=== PATIENT | female | born 1995 | race Caucasian/White ===

== ENCOUNTER 2016-11-20 18:16 | Observation (INO) | payer OTHER ==
[~2016-11-20] VITALS: Ht 154.9 cm; Wt 66.0 kg
[2016-11-20 18:17] VITALS: Ht 154.9 cm; Wt 66.0 kg
[2016-11-20] MEDS ORDERED: SODIUM CHLORIDE 0.9% 1000ML 1,000 ML IV STA (18:22)
[2016-11-20 18:40] LABS: HEMATOCRIT 40.2 % (37-47); MEAN CELL VOLUME 90.7 fL (80-100); MEAN CORPUSCULAR HEMOGLOBIN 32.1 pg (25-34); RED BLOOD COUNT 4.43 M/uL (4.2-5.4); WHITE BLOOD COUNT 9.34 K/uL (4.8-10.8)
[2016-11-20 18:41] LABS: BASO % 0.3 %; BASO ABS # 0.03 K/uL (0-0.2); COMPLETE YES; IG% 0.1 %; LYMPH % 38.1 %; LYMPH ABS # 3.56 K/uL (1.2-3.4); MEAN CORPUSCULAR HGB CONC 35.3 g/dl (32-36); MEAN PLATELET VOLUME 10.7 fL (7.4-10.4); MONO % 7.7 %; NEUT % 52.8 %; PLATELET COUNT 220 K/uL (130-400)
[2016-11-20 18:45] LABS: URINE APPEARANCE CLEAR (CLEAR); URINE BILIRUBIN NEG (NEG); URINE COLOR YELLOW; URINE NITRITE NEG (NEG); URINE PH 6.5 (4.5-7.5); URINE SPECIFIC GRAVITY 1.027 (1.000-1.030); UROBILINOGEN NEG (NEG); ZZUR CULT IF INDIC CLEAN CATCH NO
[2016-11-20 18:55] LABS: MANUAL MICROSCOPIC REQUIRED? NO; REVIEW REQ? NO
[2016-11-20 18:57] LABS: BUN/CREATININE RATIO 12.2 (10-20); CALCIUM 9.4 mg/dl (8.5-10.1); CREATININE 0.98 mg/dl (0.60-1.20); POTASSIUM 3.6 mmol/L (3.5-5.1)
[2016-11-20] MEDS ORDERED: CEFOXITIN SOD 2 GM VIAL IV STA (18:57)
--- NOTE | 2016-11-20 19:08 | History and Physical ---
History & Physical Date & Time of Service: November 20, 2016 at 19:05 Chief Complaint: Acute Appndicitis Primary Care Physician: No Doctor, Assigned History of Present Illness Source: patient, family 24 hrs of persistent abd pain- localized to RLQ- CT ordered by LMD- showed acute appendicitis pt is a student- otherwise healthy afeb, wbc- 9.3 Family History Patient reports no known family medical history. Social History Smoking Status: Never Smoker Drug Use: none Marital Status: single Occupational Status: student Allergies Coded Allergies: No Known Allergies (Unverified , 11/20/16) Home Medications No Active Prescriptions or Reported Meds Review of Systems Constitutional: No chills, No fever Respiratory: No cough, No shortness of breath Cardiovascular: No chest pain Abdomen: + pain, No diarrhea, No vomiting Genitourinary - Female: No dysuria Neurologic: No weakness Endocrine: No fatigue Integumentary: No rash Physical Exam Vital Signs Date Time Temp Pulse Resp B/P Pulse Ox O2 Delivery O2 Flow Rate FiO2 11/20/16 18:17 36.8 74 20 134/76 98 Room Air General Appearance: WD/WN, no apparent distress Eyes: sclerae normal Neck: supple Respiratory/Chest: no respiratory distress Cardiovascular: regular rate, rhythm Abdomen/GI: soft, + tenderness (RLQ tender) Extremities/Musculoskelatal: no pedal edema Skin: no rash Diagnostics Laboratory Results Results Past 24 Hours Test 11/20/16 18:25 11/20/16 18:30 Range/Units Urine Color YELLOW Urine Appearance CLEAR CLEAR Urine pH 6.5 4.5-7.5 Urine Specific Ora 1.027 1.000-1.030 Urine Protein NEG NEG Urine Glucose (UA) NEG NEG Urine Ketones 2+ NEG Urine Occult Blood NEG NEG Urine Nitrite NEG NEG Urine Bilirubin NEG NEG Urine Urobilinogen NEG NEG Urine Leukocyte Esterase NEG NEG Urine Test NEG NEG White Blood Count 9.34 4.8-10.8 K/uL Red Blood Count 4.43 4.2-5.4 M/uL Hemoglobin 14.2 12.0-16.0 g/dL Hematocrit 40.2 37-47 % Mean Corpuscular Volume 90.7 80-100 fL Mean Corpuscular Hemoglobin 32.1 25-34 pg Mean Corpuscular Hemoglobin Concent 35.3 32-36 g/dl Platelet Count 220 130-400 K/uL Mean Platelet Volume 10.7 7.4-10.4 fL Neutrophils (%) (Auto) 52.8 % Lymphocytes (%) (Auto) 38.1 % Monocytes (%) (Auto) 7.7 % Eosinophils (%) (Auto) 1.0 % Basophils (%) (Auto) 0.3 % Neutrophils # (Auto) 4.93 1.4-6.5 K/uL Lymphocytes # (Auto) 3.56 1.2-3.4 K/uL Monocytes # (Auto) 0.72 0.11-0.59 K/uL Eosinophils # (Auto) 0.09 0-0.5 K/uL Basophils # (Auto) 0.03 0-0.2 K/uL RDW Standard Deviation 38.3 36.4-46.3 fL RDW Coefficient of Variation 11.6 11.5-14.5 % Immature Granulocyte % (Auto) 0.1 % Immature Granulocyte # (Auto) 0.01 0.00-0.02 K/uL Sodium Level 141 136-145 mmol/L Potassium Level 3.6 3.5-5.1 mmol/L Chloride Level 105 98-107 mmol/L Carbon Dioxide Level 32 21-32 mmol/L Anion Gap 4.0 3-11 mmol/L Blood Urea Nitrogen 12 7-18 mg/dl Creatinine 0.98 0.60-1.20 mg/dl Est Creatinine Clear Calc Drug Dose 79.6 ml/min Estimated GFR () 96.2 Estimated GFR (Non- 83.0 BUN/Creatinine Ratio 12.2 10-20 Random Glucose 105 70-99 mg/dl Calcium Level 9.4 8.5-10.1 mg/dl Total Bilirubin 0.8 0.2-1 mg/dl Direct Bilirubin 0.2 0-0.2 mg/dl Aspartate Amino Transf (AST/SGOT) 10 15-37 U/L Alanine Aminotransferase (ALT/SGPT) 22 12-78 U/L Alkaline Phosphatase 62 45-117 U/L Total Protein 8.4 6.4-8.2 gm/dl Albumin 4.7 3.4-5.0 gm/dl Lipase 329 73-393 U/L Impression Assessment and Plan acute appendicitis- for laparoscopic appendectomy, possible open operation IV atbx
[2016-11-20] MEDS ORDERED: CEFOXITIN IV 2,000 MG in DEXTROSE 5% 50ML 50 ML IV ONE (19:15)
[2016-11-20] MEDS ORDERED: METOPROLOL TARTRATE 1 MG/ML VIAL ONE (19:27)
[2016-11-20] MEDS ORDERED: PROPOFOL IV EMULSION 10 MG/ML 20 ML VIAL IV ONE (19:28)
[2016-11-20] MEDS ORDERED: LIDOCAINE HCL 2% 2 ML VIAL (20MG/ML) ONE (19:28)
[2016-11-20] MEDS ORDERED: MIDAZOLAM HCL 1 MG/ML 2ML VIAL ONE ×2 (19:28→19:56)
[2016-11-20] MEDS ORDERED: FENTANYL CITRATE INJ 50 MCG/1 ML 2 ML VIAL ONE ×2 (19:28→20:28)
[2016-11-20] MEDS ORDERED: ONDANSETRON INJ 2 MG/ML 2 ML VIAL ONE (19:29)
[2016-11-20] MEDS ORDERED: NEOSTIGMINE METHYLSULFATE 5 MG/5 ML SYR ONE (19:29)
[2016-11-20] MEDS ORDERED: ROCURONIUM BROMIDE 10 MG/ML 5 ML VIAL ONE (19:29)
[2016-11-20] MEDS ORDERED: GLYCOPYRROLATE INJ 0.2 MG/ML VIAL ONE (19:29)
[2016-11-20] MEDS ORDERED: DEXAMETHASONE SOD INJ 4 MG/ML VIAL ONE (19:29)
[2016-11-20] MEDS ORDERED: ONDANSETRON INJ 2 MG/ML 2 ML VIAL IV PRN ×2 (19:30→20:45)
[2016-11-20] MEDS ORDERED: NALOXONE HCL 0.4 MG/1 ML VIAL/CARP IV PRN (19:30)
[2016-11-20] MEDS ORDERED: HYDROmorphone INJ 2 MG/ML SYR/VIAL IV PRN (19:30)
[2016-11-20] MEDS ORDERED: ATROPINE SULFATE 0.1 MG/ML 5ML SYR IV PRN (19:30)
[2016-11-20] MEDS ORDERED: FENTANYL CITRATE INJ 50 MCG/1 ML 2 ML VIAL IV PRN (19:30)
[2016-11-20] MEDS ORDERED: PHENYLEPHRINE 100MCG/ML 5ML SYR IV PRN (19:30)
[2016-11-20] MEDS ORDERED: LABETALOL HCL IV 5 MG/ML 20ML IV PRN (19:30)
[2016-11-20] MEDS ORDERED: FLUMAZENIL 0.1 MG/1 ML 10 ML VIAL IV PRN (19:30)
[2016-11-20] MEDS ORDERED: EpHEDrine SULFATE INJ 50 MG/ML AMP IV PRN (19:30)
[2016-11-20] MEDS ORDERED: SUCCINYLCHOLINE 100MG/5ML SYR IV ONE (19:37)
[2016-11-20] MEDS ORDERED: BUPIVACAINE 0.5 % 5 MG/1 ML MPF 30ML VIAL ONE (19:39)
[2016-11-20] MEDS ORDERED: PHENYLEPHRINE 100MCG/ML 5ML SYR ONE (20:14)
[2016-11-20] MEDS ORDERED: ESMOLOL HCL 10 MG/ML 10 ML VIAL ONE (20:36)
[2016-11-20] MEDS ORDERED: LACTATED RINGER'S 1000ML 1,000 ML IV SCH (20:41)
--- NOTE | 2016-11-20 20:41 | [facility] Post Operative Brief Note ---
Immediate Operative Summary Operative Date November 20, 2016. Pre-Operative Diagnosis Acute Appendicitis Post-Operative Diagnosis Acute Appendicitis Procedure(s) Performed Laparoscopic Appendectomy Surgeon Dr. Easley Automatic Glove Former Surgeon(s) nurses Estimated Blood Loss 5ML Findings retrocecal appendix with adhesions Specimens A. Appendix Anesthesia gen Complication(s) None Disposition Recovery Room / PACU
[2016-11-20] MEDS ORDERED: HYDROCODONE/ACETAMOPHEN 5/325MG TAB PO PRN ×2 (20:45)
[2016-11-20] MEDS ORDERED: PROMETHAZINE HCL INJ 25 MG in SODIUM CHLORIDE 0.9% 50ML 50 ML IV PRN (20:45)
[2016-11-20] MEDS ORDERED: MoRPHine SULFATE 2 MG/ML CARP IV PRN (20:45)
[2016-11-20] MEDS ORDERED: MoRPHine SULFATE 4 MG/ML 1 ML CARP\\VIAL IV PRN (20:45)
[2016-11-20] MEDS ORDERED: KETOROLAC TROMETHAMINE 30 MG/ML VIAL IV STA (20:52)
[2016-11-20] MEDS ORDERED: KETOROLAC TROMETHAMINE 30 MG/ML VIAL ONE (20:53)
[2016-11-20] MEDS: MEPERIDINE HCL 25 MG/ML CARP IV PRN ×2 (20:58→21:12)
--- NOTE | 2016-11-20 21:11 | Anesthesiology Progress Note ---
Anesthesia Post Op Note Date & Time November 20, 2016 at 21:11 Vital Signs Pain Intensity: 4 Vital Signs Past 12 Hours Date Time Temp Pulse Resp B/P Pulse Ox O2 Delivery O2 Flow Rate FiO2 11/20/16 21:05 60 12 112/69 100 Mask 10 11/20/16 20:55 80 17 109/75 100 Mask 10 11/20/16 20:49 36.0 77 16 105/63 100 Mask 10 11/20/16 19:16 70 16 126/60 99 Room Air 11/20/16 19:04 74 11/20/16 18:17 36.8 74 20 134/76 98 Room Air Notes Mental Status: alert / awake / arousable, participated in evaluation Pt Amnestic to Procedure: Yes Nausea / Vomiting: adequately controlled Pain: adequately controlled Airway Patency, RR, SpO2: stable & adequate BP & HR: stable & adequate Hydration State: stable & adequate Anesthetic Complications: no major complications apparent
[2016-11-20] MEDS ORDERED: IV FLUIDS COMPLETED PRN (21:15)
[2016-11-20] MEDS ORDERED: PROMETHAZINE HCL INJ 12.5 MG in SODIUM CHLORIDE 0.9% 50ML 50 ML IV PRN (21:15)
[2016-11-20 21:45] VITALS: BP 114/73; PULSE 69; TEMP 36.9; O2SAT 100
--- NOTE | 2016-11-20 22:05 | OPERATIVE REPORT ---
DATE OF OPERATION: 11/20/2016 NAME OF OPERATION: Laparoscopic appendectomy. PREOPERATIVE DIAGNOSIS: Acute appendicitis. POSTOPERATIVE DIAGNOSIS: Same. STAFF SURGEON: Dr. Easley. ANESTHESIA: General. PROCEDURE IN DETAIL: The patient was brought in the operating room and placed on the operating table in supine position. Pneumatic stockings, Castano catheter, orogastric tube were placed. Her abdomen was prepped and draped in usual fashion. Using 0.5% plain Marcaine, all incisions were anesthetized. Incision was made just below the umbilicus, carrying dissection down to the fascia, placing a Veress needle, producing pneumoperitoneum. A 5 mm port was placed at this level and then a 5 mm camera passed. Under visualization, a second 5 mm port was placed in the suprapubic area, a 12 mm port placed in the left lower quadrant. The cecum was reflected. The appendix was retrocecal, it was adherent to the retroperitoneum. The base of the appendix was transected using an Endo-TREVIN stapler. Then, the mesentery transected using the Endo-TREVIN stapler. I did have to dissect the appendix from the retroperitoneal adhesions using both sharp and blunt dissection. The appendix was then placed in an Endobag and then removed through the 12 mm port. At this point, the site was irrigated with hemostasis maintained. All ports were then removed. The 12 mm site closed using 0 Vicryl for the fascia and then the skin was reapproximated using subcuticular 4-0 Monocryl, Dermabond at the umbilicus and suprapubic area and Steri-Strips in left lower quadrant. Dressing applied and the patient transferred to recovery room in stable condition. I attest to the content of the Intraoperative Record and any orders documented therein. Any exceptio ns are noted below.
[2016-11-20 22:23] VITALS: BP 98/57; PULSE 73; TEMP 36.9; O2SAT 100
[2016-11-20 22:47] VITALS: BP 104/62; PULSE 83; TEMP 37; O2SAT 97
[2016-11-20 23:45] VITALS: BP 98/59; PULSE 73; TEMP 37.2; O2SAT 96
--- NOTE | 2016-11-21 00:36 | EMERGENCY ROOM VISIT NOTE ---
History Report prepared by Jodee: Kaylan Florian Under the Supervision of: Dr. Mannie Jay M.D. First contact with patient: 18:22 Chief Complaint: ABDOMINAL PAIN Stated Complaint: ACUTE APPNDICITIS History of Present Illness The patient is a 21 year old female who presents to the Emergency Room with complaints of constant abdominal pain starting yesterday. The patient states that she had stomach pains yesterday and went to a PA in [place]. She reports that they ordered an outpatient CT and was found to have appendicitis. She states that she was nauseous yesterday and today, but denies any vomiting. The patient reports that her pain is a 4/10 in severity. She notes she last had water three hours ago and no food since yesterday. She also states that she has blood in her urine. Pt denies LOC, headache, fevers, chills, diaphoresis, visual changes, neck pain, chest pain, breathing difficulties, vomiting, back pain, melena, hematochezia, numbness, weakness, lymphadenopathy, rash, or other complaints. Source of History: patient Onset: yesterday Position: abdomen Symptom Intensity: 4/10 Timing: constant Associated Symptoms: + nausea Review of Systems See HPI for pertinent positives and negatives. A total of ten systems were reviewed and were otherwise negative. Family History Patient reports no known family medical history. Social History Smoking Status: Never Smoker Alcohol Use: occasionally Drug Use: none Marital Status: single Occupation Status: student Current/Historical Medications No Active Prescriptions or Reported Meds Allergies Coded Allergies: No Known Allergies (Unverified , 11/20/16) Physical Exam Vital Signs Date Time Temp Pulse Resp B/P Pulse Ox O2 Delivery O2 Flow Rate FiO2 11/20/16 18:17 36.8 74 20 134/76 98 Room Air Physical Exam GENERAL: Awake, alert, well-appearing, in no distress HENT: Normocephalic, atraumatic. Oropharynx unremarkable. EYES: Normal conjunctiva. Sclera non-icteric. NECK: Supple. No nuchal rigidity. FROM. No JVD. RESPIRATORY: Clear to auscultation. CARDIAC: Regular rate, normal rhythm. Extremities warm and well perfused. Pulses equal. ABDOMEN: Soft, non-distended. RLQ tenderness to palpation. No rebound. Some guarding. No masses. RECTAL: Deferred. MUSCULOSKELETAL: Chest examination reveals no tenderness. The back is symmetrical on inspection without obvious abnormality. There is right CVA tenderness to palpation. No joint edema. LOWER EXTREMITIES: Calves are equal size bilaterally and non-tender. No edema. No discoloration. NEURO: Normal sensorium. No sensory or motor deficits noted. SKIN: No rash or jaundice noted. Medical Decision & Procedures Laboratory Results Laboratory results reviewed by me ED Course 182: Ordered NSS 1000 ml @ 999 mls/hr IV. 1842: The patient was evaluated in room C10. A complete history and physical exam was performed. 1848: I discussed the patient's case with Dr. Easley. The patient will be evaluated for further treatment and disposition. Medical Decision Review Triage Nursing notes reviewed. The patient's presentation and history were concerning for right-sided abdominal pain and a CT showing a retrocecal appendicitis. Etiologies such as appendicitis, diverticulitis, obstruction, inflammatory bowel disease, renal colic, PUD, biliary pathology, pancreatitis, mesenteric ischemia, aortic pathology, , ovarian pathology, infections, genitourinary, UTI, perforated viscus, as well as others were entertained. The patient was evaluated. Clinically she was doing relatively well. She declined analgesia. She was hydrated. The patient was NPO. Her CBC, chemistry panel, LFTs, lipase, and urinalysis were unremarkable. The patient is not . CT scan results were reviewed from her outpatient study and she has a retrocecal appendicitis. Consultation was made with Dr. Easley of general surgery. He recommended Mefoxin and will see the patient promptly for operative intervention. The patient was evaluated in the Emergency Room the operative suite for further management. The chart was completed utilizing [employer] Speech voice recognition software. Grammatical errors, random word insertions, pronoun errors, and incomplete sentences are an occasional consequence of this system due to software limitations, ambient noise, and hardware issues. Any formal questions or concerns about the content, text, or information contained within the body of this dictation should be directly addressed to the physician for clarification. Consults Time Called: 1845 Consulting Physician: Dr. Easley Returned Call: 1848 I discussed the patient's case with Dr. Easley. The patient will be evaluated for further treatment and disposition. Impression Primary Impression: Acute appendicitis Scribe Attestation The scribe's documentation has been prepared under my direction and personally reviewed by me in its entirety. I confirm that the note above accurately reflects all work, treatment, procedures, and medical decision making performed by me. Departure Information Dispostion Being Evaluated By Surgeon Prescriptions No Active Prescriptions or Reported Meds Referrals No Doctor, Assigned (PCP) Patient Instructions My [facility]
[2016-11-21 00:45] VITALS: BP 95/57; PULSE 85; TEMP 37.1; O2SAT 96
[2016-11-21] MEDS ORDERED: CEFOXITIN IV 1,000 MG in DEXTROSE 5% 50ML 50 ML IV SCH (04:00)
[2016-11-21 04:24] VITALS: BP 97/53; PULSE 53; TEMP 37.2; O2SAT 99
[2016-11-21] MEDS ORDERED: HYDR-5688 PO (05:27)
--- NOTE | 2016-11-21 05:31 | Discharge Instructions ---
Discharge Instructions Date of Service November 21, 2016. Admission Reason for Admission: Acute Appendicitis Discharge Discharge Diagnosis / Problem: acute appendicitis Discharge Goals Goal(s): Decrease discomfort, Improve function, Improve disease control Activity Recommendations Activity Limitations: as noted below Lifting Limitations: no more than 25 pounds Exercise/Sports Limitations: until after follow-up appointment May Resume Sexual Activity: when tolerated Shower/Bathe: tomorrow SPECIAL CARE INSTRUCTIONS: * Cover incisions and change daily for comfort/drainage. May leave uncovered with dermabond * Leave steri strips in place * May use ibuprofen for pain as tolerated. * Expect some swelling and bruising. Call your doctor if: * Temperature above 101 degrees * Pain not relieved by pain medicine ordered * There is increased drainage or redness from any incision * You have any unanswered questions or concerns [phone]. FOLLOW UP VISIT: If not already scheduled, please call the office for a follow-up visit. for 2 weeks- no sutures to remove OFFICE PHONE NUMBER: Dr. Easley Office . Current Hospital Diet Patient's current hospital diet: Regular Diet Discharge Diet Recommended Diet: Regular Diet Procedures Procedures Performed: Laparoscopic Appendectomy Pending Studies Studies pending at discharge: no Medical Emergencies . Who to Call and When: Medical Emergencies: If at any time you feel your situation is an emergency, please call 911 immediately. . Non-Emergent Contact Non-Emergency issues call your: Primary Care Provider, Surgeon . "Provider Documentation" section prepared by Vishal Easley. . VTE Core Measure Inpt VTE Proph given/why not?: SCD's
--- NOTE | 2016-11-21 07:19 | DISCHARGE SUMMARY ---
PRINCIPAL DIAGNOSIS: Acute appendicitis. PROCEDURES: The patient underwent laparoscopic appendectomy. HISTORY OF PRESENT ILLNESS: The patient is a 21-year-old female with persistent abdominal pain localizing to the right lower quadrant presenting to the Emergency Room and found on workup to have appendicitis on evidence of CAT scan. HOSPITAL COURSE: The patient was brought into the hospital and taken to the operating room on 11/20/2016 where she underwent laparoscopic appendectomy. She has done very well overnight and wishes to go home today. She will be discharged on oral pain medication and seen in the office in 2 weeks.
[2016-11-21 07:25] VITALS: BP 104/58; PULSE 66; TEMP 36.6; O2SAT 97
[2016-11-21 08:03] VITALS: O2SAT 97
[2016-11-21 08:12] VITALS: BP 104/58; PULSE 66; TEMP 36.6; O2SAT 97
== END 2016-11-21 08:57 | disposition home or self-care (01) ==
LOC: ENRESERVDT → ENRESERVTM → C.EDB 18:17 → C.MSW 20:45 → UNDOADMOB 20:45
PROVIDERS: ADMIT Surgery; ATTEND Surgery
DX: K35.80 Unspecified acute appendicitis (principal); Z68.28 Body mass index [BMI] 28.0-28.9, adult

== ENCOUNTER → 2016-11-20 | Outpatient (CLI) | payer OTHER ==
[~2016-11-20] MED LIST: HYDR-5688 PO
--- NOTE | 2016-11-20 17:38 | DIAGNOSTIC IMAGING REPORT ---
CT OF THE ABDOMEN AND PELVIS WITHOUT CONTRAST, STONE PROTOCOL CLINICAL HISTORY: Right lower quadrant pain. Evaluate for stones. COMPARISON STUDY: None. TECHNIQUE: Helical axial images of the abdomen and pelvis were obtained without IV or oral contrast according to renal stone protocol. FINDINGS: Several punctate right renal calculi measure up to 2 mm. A punctate calculus within the lower pole of the left kidney is noted. There is no hydronephrosis. There are no ureteral calculi. Evaluation of the remainder of the abdomen and pelvis is suboptimal as unenhanced exam. The liver, spleen, adrenal glands and pancreas are normal. The appendix is mildly dilated, measuring 8 mm in caliber. There is wall thickening of the mid to distal appendix with mild periappendiceal infiltration. The appendix is retrocecal. There is no free air or abscess. There is no lymphadenopathy. There is no bowel obstruction. Skeletal structures are unremarkable. IMPRESSION: 1. Acute appendicitis. Mild periappendiceal infiltration. No free air or abscess. Retrocecal appendix. Surgical consultation is recommended. 2. Punctate bilateral renal calculi. No ureteral calculi or hydronephrosis. Electronically signed by: Tamir Louis M.D. 11/20/2016 5:37 PM Dictated Date/Time: 11/20/2016 5:30 PM
== END | disposition home or self-care (01) ==
LOC: C.CTS 17:15
PROVIDERS: ATTEND Physician Assistant
DX: K35.80 Unspecified acute appendicitis (principal); N20.0 Calculus of kidney

== ENCOUNTER → 2017-08-14 | Day surgery (SDC) | payer OTHER ==
[2017-08-09 09:10] VITALS: Ht 154.9 cm; Wt 65.9 kg
[~2017-08-14] VITALS: Ht 154.9 cm; Wt 65.9 kg
[~2017-08-14] MED LIST changes: -HYDR-5688 PO; +LIDOCAINE HCL 2% 2 ML VIAL (20MG/ML) ONE; +MIDAZOLAM HCL 1 MG/ML 2ML VIAL ONE; +PROPOFOL IV EMULSION 10 MG/ML 20 ML VIAL IV ONE; +RANI150T3 PO; +SODIUM CHLORIDE 0.9% 500ML 500 ML IV ONE
--- NOTE | 2017-08-14 13:52 | Endo History and Physical ---
History & Physical Date of Service: Aug 14, 2017. Chief Complaint: Epigastric pain Referring Physician: MIKE Helton History of Present Illness 22 yo CF who presents for EGD secondary to epigastric abdominal pain. Past Surgical History Hx Cardiac Surgery: No Hx Internal Defibrillator: No Hx Pacemaker: No Hx Abdominal Surgery: Yes (APPY) Hx of Implantable Prosthesis: No Hx Post-Op Nausea and Vomiting: No Hx Cancer Surgery: No Hx Thoracic Surgery: No Hx Orthopedic: No Hx Urinary Tract Surgery: No Family History None Social History Smoking Status: Never Smoker Hx Substance Use: No Hx Alcohol Use: Yes (OCCASIONALLY) Allergies Coded Allergies: No Known Allergies (Verified , 08/14/17) Current Medications Reported Home Medications Medications Dose Route/Sig Max Daily Dose Days Date Category Zantac (Ranitidine HCl) 150 Mg Tab 1 Tab PO BID 90 08/14/17 Reported Vital Signs Weight (Kilograms): 65.91 Height (Feet): 5 Height (Inches): 1 Physical Exam General Appearance: WD/WN, no apparent distress Respiratory/Chest: Auscultation: breath sounds normal Cardiovascular: Heart Auscultation: RRR Abdomen: Bowel Sounds: normal Inspection & Palpation: soft, non-distended, no tenderness, guarding & rebound Assessment and Plan Assessment: 22 yo CF who presents for EGD secondary to epigastric abdominal pain. Plan: Proceed with EGD.
--- NOTE | 2017-08-14 14:49 | GI REPORT ---
Procedure Date: 08/14/2017 2:06 PM Procedure: Upper GI endoscopy Indications: Epigastric abdominal pain Medicines: Monitored Anesthesia Care Complications: No immediate complications. Estimated Blood Loss: Estimated blood loss: none. Procedure: Pre-Anesthesia Assessment: - Prior to the procedure, a History and Physical was performed, and patient medications and allergies were reviewed. The patient's tolerance of previous anesthesia was also reviewed. The risks and benefits of the procedure and the sedation options and risks were discussed with the patient. All questions were answered, and informed consent was obtained. Prior Anticoagulants: The patient has taken no previous anticoagulant or antiplatelet agents. ASA Grade Assessment: II - A patient with mild systemic disease. After reviewing the risks and benefits, the patient was deemed in satisfactory condition to undergo the procedure. After obtaining informed consent, the endoscope was passed under direct vision. Throughout the procedure, the patient's blood pressure, pulse, and oxygen saturations were monitored continuously. The Scope was introduced through the mouth, and advanced to the second part of duodenum. The upper GI endoscopy was accomplished without difficulty. The patient tolerated the procedure well. Findings: The esophagus was normal. Localized mild inflammation characterized by erythema was found in the gastric antrum. Biopsies were taken with a cold forceps for histology. The examined duodenum was normal. Impression: - Normal esophagus. - Gastritis. Biopsied. - Normal examined duodenum. Recommendation: - Resume previous diet. - Continue present medications. - Await pathology results. - Return to GI office as previously scheduled. Sony Antunez, DO 08/14/2017 2:48:34 PM This report has been signed electronically. Note Initiated On: 08/14/2017 2:06 PM I attest to the content of the Intraoperative Record and orders documented therein, exceptions below
--- NOTE | 2017-08-14 14:52 | Discharge Instructions ---
Endoscopy Patient Instructions Date / Procedure(s) Performed Aug 14, 2017. EGD Allergy Information Coded Allergies: No Known Allergies (Verified , 08/14/17) Discharge Date / Findings Aug 14, 2017. Gastritis s/p biopsies Medication Instructions OK to resume all medications today as prescribed Reported Home Medications Medications Dose Route/Sig Max Daily Dose Days Date Category Zantac (Ranitidine HCl) 150 Mg Tab 1 Tab PO BID 90 08/14/17 Reported Provider Instructions Activity Restrictions - No exercising or heavy lifting for 24 hours. - Do not drink alcohol the day of the procedure. - Do not drive a car or operate machinery until the day after the procedure. - Do not make any important decisions or sign important papers in 24 hours after the procedure. Following Day: - Return to full activity which may include returning to work/school. Diet Start your diet with liquids and light foods (jello, soup, juice, toast). Then eat your usual diet if not nauseated. Treatment For Common After Affects For mild abdominal pain, bloating, or excessive gas: - Rest - Eat lightly - Lie on right side Follow-Up Information Follow-up with Mannie STEVENS as scheduled Anesthesia Information What You Should Know You have had a procedure that required some medicine to reduce anxiety and discomfort. This treatment is called moderate sedation. After receiving the treatment, you may be sleepy, but you will be able to breathe on your own. The effects of the treatment may last for several hours. Follow these instructions along with Activity/Diet recommendations noted above: * Do NOT do anything where dizziness or clumsiness would be dangerous. * Rest quietly at home today, then you can be up and about tomorrow. * Have a responsible person stay with you the rest of today. * You may have had an I.V. today. If so, you may take the dressing off later today. Recommendations Call your doctor if: * Trouble breathing * Continuous vomiting for more than 24 hours * Temperature above 101 degrees * Severe abdominal pain or bloating * Pain not relieved by pain medicine ordered * There is increased drainage or redness from any incision * A large amount of rectal bleeding greater than 2-3 tablespoons. (If you had a polyp/s removed or have hemorrhoids, a small amount of blood - from the rectum is to be expected.) * You have any unanswered questions or concerns. IN THE EVENT OF A SERIOUS EMERGENCY, GO TO THE NEAREST EMERGENCY ROOM Your discharge instructions were prepared by provider Sony Antunez. Patient Instructions Signature Page Shirlenekevin Levineuse Patient (or Guardian) Signature/Date: I have read and understand the instructions given to me by my caregivers. Caregiver/RN/Doctor Signature/Date: The above-named patient and/or guardian has received patient instructions on this date. + Original Patient Signature Page (only) stays with chart. Please make copy for patient.
--- NOTE | 2017-08-14 15:19 | Anesthesiology Progress Note ---
Anesthesia Post Op Note Date & Time Aug 14, 2017 at 15:19 Vital Signs Pain Intensity: 0 Vital Signs Past 12 Hours Date Time Temp Pulse Resp B/P (MAP) Pulse Ox O2 Delivery O2 Flow Rate FiO2 08/14/17 13:55 37 60 18 115/64 (81) 100 Room Air Notes Mental Status: alert / awake / arousable, participated in evaluation Pt Amnestic to Procedure: Yes Nausea / Vomiting: adequately controlled Pain: adequately controlled Airway Patency, RR, SpO2: stable & adequate BP & HR: stable & adequate Hydration State: stable & adequate Anesthetic Complications: no major complications apparent
[2017-08-14 15:25] VITALS: BP 101/49; PULSE 57; O2SAT 100
== END | disposition home or self-care (01) ==
LOC: C.GI 13:33
PROVIDERS: ATTEND Internal Medicine
DX: K29.70 Gastritis, unspecified, without bleeding (principal); Z90.89 Acquired absence of other organs

== ENCOUNTER 2020-11-26 01:05 | Inpatient (IN) ==
[2020-11-26] MEDS ORDERED: ONDANSETRON INJ 2 MG/ML 2 ML VIAL IV STA (01:30)
[2020-11-26] MEDS ORDERED: MoRPHine SULFATE 4 MG/ML 1 ML CARP\\VIAL IV STA (01:30)
[2020-11-26] MEDS ORDERED: cefTRIAXone SODIUM 2,000 MG/70 ML BAG IV STA (01:30)
[2020-11-26] MEDS ORDERED: SODIUM CHLORIDE 0.9% 1000ML 1,000 ML IV ONE ×2 (01:30→02:54)
[2020-11-26] MEDS ORDERED: OPTIRAY 300 100mL IV ONE ×2 (01:35→08:40)
--- NOTE | 2020-11-26 01:43 | Emergency Department Note ---
History of Present Illness General Chief complaint: Pilonidal Cyst Stated complaint: RUPTURED CYST NEEDS DRAINED Time Seen by Provider: 11/26/20 01:16 History of Present Illness Maximum Pain Intensity: 7 This 25-year-old presents to the ER complaining of right labial infection Location: Right labia Quality: Painful Severity: Severe Duration: Past few days Timing: Started a few days ago Context: Pain and swelling got worse and patient came in Modifying factors: better with rest; worse with palpation Patient saw OB yesterday was started on Keflex. Symptoms got much worse and she came in. Patient denies chest pain, dyspnea, fevers, urinary symptoms. Home Medications Medication Instructions Recorded Confirmed Type albuterol sulfate 90 mcg/actuation 1 inh INHALATION QID PRN 11/25/20 11/26/20 History aerosol inhaler cephalexin 500 mg capsule 500 mg PO Q6H 10 Days #40 cap 11/25/20 11/26/20 Rx Allergies Allergy/AdvReac Type Severity Reaction Status Date / Time nickel AdvReac Mild Rash Verified 11/26/20 01:32 Past Med/Surg History Medical History Acute appendicitis Encounter for anatomic survey Evaluate anatomy not seen on prior sonogram Varicella vaccination Surgical History S/P appendectomy S/P surgical removal of pilonidal cyst S/P wisdom tooth extraction Family History Sister Torue-Jztlreqvg-Abeyn syndrome Grandmother (Maternal) Breast cancer Grandmother (Paternal) Breast cancer Mother Non-Hodgkin lymphoma Social History Smoking Status: Never smoker Hx Alcohol Use: No Hx Substance Use: No Preferred Language: Serbian Communication Ability: Effective Chief Recordist Required: No Beliefs That Will Affect Care: None marital status: Single marital status details: Kade Moses (22) [phone] Current Living Situation: Significant Other Current Living Situation Comment: lives with fob, dogs current occupational status: 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[employer] Feels Safe at Home: Yes Assistive Devices: Glasses Review of Systems A total of 10 systems reviewed and were otherwise negative Physical Exam Vital Signs Vital Signs - 24 hr 11/26/20 01:09 11/26/20 01:23 11/26/20 02:50 Temperature 36.5 C 36.6 C Temperature Source Temporal Artery Scan Oral Pulse Rate 123 H Pulse Rate [Right Finger] 114 H 99 H Pulse Rhythm [Right Finger] Regular Regular Pulse Strength [Right Finger] Normal Normal Respiratory Rate 18 16 16 Respiratory Effort / Characteristics Non-Labored Spontaneous Non-Labored Spontaneous Respiratory Depth Normal Normal Respiratory Pattern Regular Regular Blood Pressure 98/61 L Blood Pressure [Left Arm] 109/66 91/65 L Blood Pressure Mean 73 Blood Pressure Mean [Left Arm] 80 73 Blood Pressure Position [Left Arm] Lying Lying Pulse Oximetry 100 100 97 Oxygen Delivery Method Room Air Room Air Sepsis Recent Fever Within 48 Hours No Sepsis New/Unexplained Change in Mental Status N/A Sepsis Action Taken by Nursing No Action Required 11/26/20 03:49 Temperature Temperature Source Pulse Rate Pulse Rate [Right Finger] 99 H Pulse Rhythm [Right Finger] Regular Pulse Strength [Right Finger] Normal Respiratory Rate 16 Respiratory Effort / Characteristics Non-Labored Spontaneous Respiratory Depth Normal Respiratory Pattern Regular Blood Pressure Blood Pressure [Left Arm] 104/75 Blood Pressure Mean Blood Pressure Mean [Left Arm] 84 Blood Pressure Position [Left Arm] Lying Pulse Oximetry 99 Oxygen Delivery Method Room Air Sepsis Recent Fever Within 48 Hours Sepsis New/Unexplained Change in Mental Status Sepsis Action Taken by Nursing VITALS: Vitals are noted on the nurse's note and reviewed by myself. Vital signs stable. GENERAL: Pleasant female who appears in pain, in no acute distress, nondiaphoretic, well-developed well-nourished. SKIN: Capillary reflex less than 2 seconds. HEENT: Normocephalic. PERRLA. EOMI. Nares patent. Mucous membranes moist. Neck is supple without nuchal rigidity. HEART: Regular rate and rhythm without murmurs gallops or rubs. LUNGS: Clear to auscultation bilaterally without wheezes, rales or rhonchi. No retractions or accessory muscle use. ABDOMEN: Positive bowel sounds x 4. Normal tympanic percussion. Soft, nontender, without masses or organomegaly. Lazo sign negative. No guarding or rebound tenderness. No CVA tenderness exam: Right labia and pubic area erythematous and edematous concerning for infection. Rectal exam: Right buttock erythematous and edematous concerning for cellulitis. No perineum tenderness. No rectal involvement. No crepitus. Nurse Paralegal present. MUSCULOSKELETAL: No gross musculoskeletal defects. NEURO: Patient was alert and oriented to person place and time. No focal neurological deficits. Course Administered Medications Vancomycin HCl 1,750 mg/ (Sodium Chloride) 535 mls @ 200 mls/hr IV NOW ONE Stop: 11/26/20 05:45 Last Admin: 11/26/20 03:35 Dose: 200 mls/hr Documented by: [id number] Discontinued Medications Ceftriaxone Sodium (Rocephin) 2,000 mg in 70 mls @ 140 mls/hr IV NOW STA Stop: 11/26/20 01:59 Last Infusion: 11/26/20 03:02 Dose: 0 mls/hr Documented by: [id number] Admin: 11/26/20 02:08 Dose: 140 mls/hr Documented by: [id number] Sodium Chloride (Nss 1000ml) 1,000 mls @ 999 mls/hr IV .Q1H1M ONE Stop: 11/26/20 02:30 Last Infusion: 11/26/20 03:22 Dose: 0 mls/hr Documented by: [id number] Admin: 11/26/20 02:10 Dose: 999 mls/hr Documented by: [id number] Sodium Chloride (Nss 1000ml) 1,000 mls @ 999 mls/hr IV .Q1H1M ONE Stop: 11/26/20 03:54 Last Infusion: 11/26/20 04:37 Dose: 0 mls/hr Documented by: [id number] Admin: 11/26/20 03:36 Dose: 999 mls/hr Documented by: [id number] Clindamycin Phosphate 900 mg/ (Dextrose) 56 mls @ 112 mls/hr IV ONE ONE Stop: 11/26/20 03:34 Last Infusion: 11/26/20 04:37 Dose: 0 mls/hr Documented by: [id number] Admin: 11/26/20 03:35 Dose: 112 mls/hr Documented by: [id number] Ioversol (Optiray 300 100ml) 90 ml IV ONCE ONE Stop: 11/26/20 01:36 Last Admin: 11/26/20 01:36 Dose: 90 ml Documented by: [id number] Morphine Sulfate (Morphine Sulfate 4 Mg/Ml 1 Ml Carp\Vial) 4 mg IV NOW STA Stop: 11/26/20 01:31 Last Admin: 11/26/20 02:09 Dose: 4 mg Documented by: [id number] Ondansetron HCl (Ondansetron Inj 2 Mg/Ml 2 Ml Vial) 4 mg IV NOW STA Stop: 11/26/20 01:31 Last Admin: 11/26/20 02:09 Dose: 4 mg Documented by: [id number] Medical Decision Making Medical Records Attestation: I reviewed the patient's medical records. Home Medications Current Medication List: was personally reviewed by me Laboratory Data Attestation: I reviewed the patient's lab results. Result diagrams: 11/26/20 01:52 11/26/20 01:52 Lab Results 11/26/20 11/26/20 11/26/20 Range/Units 01:52 01:52 01:52 WBC 10.82 H (4.8-10.8) K/uL RBC 4.14 L (4.2-5.4) M/uL Hgb 13.4 (12.0-16.0) g/dL Hct 39.0 (37-47) % MCV 94.2 (80-100) fL MCH 32.4 (25-34) pg MCHC 34.4 (32-36) g/dL RDW Std Deviation 43.8 (36.4-46.3) fL RDW Coeff of Dot 12.7 (11.5-14.5) % Plt Count 142 (130-400) K/uL MPV 11.1 H (7.4-10.4) fL Immature Gran % (Auto) 1.0 % Neut % (Auto) 82.7 % Lymph % (Auto) 6.4 % [place] % (Auto) 9.0 % Eos % (Auto) 0.8 % Baso % (Auto) 0.1 % Neut # (Auto) 8.95 H (1.4-6.5) K/uL Lymph # (Auto) 0.69 L (1.2-3.4) K/uL [place] # (Auto) 0.97 H (0.11-0.59) K/uL Eos # (Auto) 0.09 (0-0.5) K/uL Baso # (Auto) 0.01 (0-0.2) K/uL Immature Gran # (Auto) 0.11 H (0.00-0.02) K/uL Echinocytes 1+ ESR (0-20) mm/hr Sodium 141 (136-145) mmol/L Potassium 3.2 L (3.5-5.1) mmol/L Chloride 112 H (98-107) mmol/L Carbon Dioxide 25 (21-32) mmol/L Anion Gap 4.0 (3-11) BUN 9 (7-18) mg/dl Creatinine 0.95 (0.6-1.2) mg/dl Est Cr Clr Drug Dosing 88.3 ml/min Est GFR ( Amer) 97.2 Est GFR (Non-Af Amer) 83.8 BUN/Creatinine Ratio 9.3 L (10-20) Glucose 142 H (70-99) mg/dl Lactate (0.4-2.0) mmol/L Calcium 8.8 (8.5-10.1) mg/dl Total Bilirubin 0.8 (0.2-1) mg/dl Direct Bilirubin 0.2 (0-0.2) mg/dl AST 10 L (15-37) U/L ALT 32 (12-78) U/L Alkaline Phosphatase 88 (45-117) U/L Total Creatine Kinase 31 (26-192) U/L C-Reactive Protein 27.40 H (0-0.29) mg/dl Total Protein 6.6 (6.4-8.2) gm/dl Albumin 3.2 L (3.4-5.0) gm/dl HCG, Qual Negative (Negative) COVID-19 Eval Order 11/26/20 11/26/20 11/26/20 Range/Units 01:52 03:33 03:49 WBC (4.8-10.8) K/uL RBC (4.2-5.4) M/uL Hgb (12.0-16.0) g/dL Hct (37-47) % MCV (80-100) fL MCH (25-34) pg MCHC (32-36) g/dL RDW Std Deviation (36.4-46.3) fL RDW Coeff of Dot (11.5-14.5) % Plt Count (130-400) K/uL MPV (7.4-10.4) fL Immature Gran % (Auto) % Neut % (Auto) % Lymph % (Auto) % [place] % (Auto) % Eos % (Auto) % Baso % (Auto) % Neut # (Auto) (1.4-6.5) K/uL Lymph # (Auto) (1.2-3.4) K/uL [place] # (Auto) (0.11-0.59) K/uL Eos # (Auto) (0-0.5) K/uL Baso # (Auto) (0-0.2) K/uL Immature Gran # (Auto) (0.00-0.02) K/uL Echinocytes ESR 44 H (0-20) mm/hr Sodium (136-145) mmol/L Potassium (3.5-5.1) mmol/L Chloride (98-107) mmol/L Carbon Dioxide (21-32) mmol/L Anion Gap (3-11) BUN (7-18) mg/dl Creatinine (0.6-1.2) mg/dl Est Cr Clr Drug Dosing ml/min Est GFR ( Amer) Est GFR (Non-Af Amer) BUN/Creatinine Ratio (10-20) Glucose (70-99) mg/dl Lactate 1.2 (0.4-2.0) mmol/L Calcium (8.5-10.1) mg/dl Total Bilirubin (0.2-1) mg/dl Direct Bilirubin (0-0.2) mg/dl AST (15-37) U/L ALT (12-78) U/L Alkaline Phosphatase (45-117) U/L Total Creatine Kinase (26-192) U/L C-Reactive Protein (0-0.29) mg/dl Total Protein (6.4-8.2) gm/dl Albumin (3.4-5.0) gm/dl HCG, Qual (Negative) COVID-19 Eval Order CovFluRsv at [facility] Imaging Data Attestation: I personally reviewed and interpreted this imaging study as follows: MDM Narrative Prior records reviewed and summarized as above. Triage Nursing notes reviewed. Additional history obtained from family. The patient's history was concerning for swelling and redness of the skin. Differential diagnosis: Etiologies such as cellulitis, abscess, Bartholin's abscess, labial abscess, MRSA infection, DVT, necrotizing fasciitis, dermatitis, drug eruption, as well as others were entertained.. Physical examination: As above ER treatment provided: Rocephin, Cleocin, vancomycin, morphine, Zofran, IV fluids On reassessment the patient felt better. Diagnostics interpreted by me: The labs revealed leukocytosis, hyperglycemia, negative hCG Negative lactic Elevated inflammatory markers. Normal CPK Imaging studies: If a discrepancy is found between the preliminary and final interpretations of this study, please notify us via our Client Portal at [email or web address], under QA Exams. You can also fax this report with a description of the discrepancy, or include the final report, to our daytime fax number [phone]. If faxing, please indicate the severity of discrepancy using one of the following categories: [ ] 1 - Agree/Informational [ ] 2 - Unlikely to Affect Management [ ] 3 - Possible Eventual Change of Management [ ] 4 - Probable Immediate Change of Management For all other patient related information, please fax us at [phone]. [id number] [facility] Patient: DINORAH STACY (Female) : 89 Status: ER Date: 11/26/20 03:09 Room #: History: right pelvic/labia infx, PILONIDAL CYST, NO APPENDIX , 90 ML OPTIRAY 320 Slices: [id number] Priors: Tech: Emykevin Edward @ [phone] Exams: CT ABDOMEN & PELVIS With Contrast Contrast: IV Amt: 90 ML Accession Numbers: [id number] Preliminary Findings Only See Final Report For Complete Findings CT ABDOMEN & PELVIS With Contrast: Direct comparison made with prior study of November 20, 2016. The liver, spleen, pancreas and gallbladder appear normal. The stomach, small bowel, colon appear normal. The appendix is not visualized. Adrenals kidneys ureters and bladder appear normal. Uterus appears normal. 2.3 cm cystic structure in the left adnexa suggests an ovarian follicle. Vascular structures appear normal. There is no free peritoneal air, or fluid. There is stranding and thickening in the subcutaneous fat of the right labia and perineum. There is no drainable fluid collection. Finding appears new relative to the prior study. Impression: Cellulitis in the right labia extending into the perineum and anterior pelvic wall without drainable fluid collection Radiologist: Kleber Elise MD Consultation: A consultation was placed with the hospitalist. The case was discussed and diagnostics were reviewed. The patient was evaluated in the ER for further treatment. This appears to be extensive cellulitis to the labia and buttock area. Patient was started on antibiotics. Medicine was consulted and antibiotics were reviewed. She will be evaluated for admission By the evaluation outlined above emergent etiologies such as abscess, necrotizing fasciitis, DVT, as well as others were deemed relatively unlikely. The pt informed about the findings as listed above. All questions were answered and pleased with the treatment. The chart was completed utilizing [employer] Speech voice recognition software. Grammatical errors, random word insertions, pronoun errors, and incomplete sentences are an occassional consequence of this system due to software limitations, ambient noise, and hardware issues. Any formal questions or concerns about the content, text, or information contained within the body of this dictation should be directly addressed to the physician human resources office assistant for clarification. Impression & Plan Cellulitis of labia, Cellulitis of buttock Discharge Plan Visit Data Chief Complaint: Pilonidal Cyst Stated Complaint: RUPTURED CYST NEEDS DRAINED ED Provider: Sheila Bailey ED Midlevel Provider: Karo Umanzor Discharge Problem: Cellulitis of labia, Cellulitis of buttock Patient Disposition: Admitted As Inpatient Condition: Fair Forms Stand Alone Forms: [employer] Prescriptions Prescriptions: No Action albuterol sulfate 90 mcg/actuation HFA aerosol inhaler 1 inh inhalation QID PRN (Reason: Shortness Of Breath) RF: 0 cephalexin 500 mg capsule 500 mg PO Q6H 10 Days Qty: 40 RF: 0 Referrals Referrals: Jason Colon PA-C [Primary Care Provider] -
[2020-11-26 02:06] LABS: Hemoglobin 13.4 g/dL (12.0-16.0); Mean Corpuscular Hemoglobin 32.4 pg (25-34); Mean Corpuscular Hgb Conc 34.4 g/dL (32-36); Mean Corpuscular Volume 94.2 fL (80-100); Mean Platelet Volume 11.1 fL (7.4-10.4); Platelet Count 142 K/uL (130-400); RDW Coefficient of Variation 12.7 % (11.5-14.5); RDW Standard Deviation 43.8 fL (36.4-46.3); Red Blood Count 4.14 M/uL (4.2-5.4); White Blood Count 10.82 K/uL (4.8-10.8)
[2020-11-26 02:20] LABS: Basophils # (auto) 0.01 K/uL (0-0.2); Basophils % (auto) 0.1 %; Echinocytes 1+; Eosinophils # (auto) 0.09 K/uL (0-0.5); Eosinophils % (auto) 0.8 %; Immature Granulocytes # (auto) 0.11 K/uL (0.00-0.02); Lymphocytes # (auto) 0.69 K/uL (1.2-3.4); Lymphocytes % (auto) 6.4 %; Monocytes # (auto) 0.97 K/uL (0.11-0.59); Neutrophils # (auto) 8.95 K/uL (1.4-6.5); Neutrophils % (auto) 82.7 %
[2020-11-26 02:23] LABS: BUN Creatinine Ratio 9.3 (10-20); Calcium 8.8 mg/dl (8.5-10.1); Creatinine Clr Calc Pharmacy 88.3 ml/min; Est GFR (African American) 97.2; Est GFR (Non-African American) 83.8; Potassium 3.2 mmol/L (3.5-5.1)
[2020-11-26 02:26] LABS: Pregnancy Test, Serum Negative (Negative)
[2020-11-26] MEDS ORDERED: VANCOMYCIN HCL 1,750 MG in SODIUM CHLORIDE 0.9% 500 ML IV ONE (03:05)
[2020-11-26] MEDS ORDERED: CLINDAMYCIN 900 MG in DEXTROSE 5% 50 ML IV ONE (03:05)
[2020-11-26] MEDS ORDERED: VANCOMYCIN CONSULT ACTIVE PRN (03:05)
[2020-11-26 03:26] LABS: Albumin Level 3.2 gm/dl (3.4-5.0); Bilirubin Direct 0.2 mg/dl (0-0.2)
[2020-11-26 03:30] LABS: Bilirubin,Total 0.8 mg/dl (0.2-1); C Reactive Protein 27.4 mg/dl (0-0.29); Total Protein 6.6 gm/dl (6.4-8.2)
--- NOTE | 2020-11-26 04:24 | History & Physical Report ---
Date of Service November 26, 2020 Assessment & Plan (1) Cellulitis of labia: Shirlene is a 25 yo woman who is admitted for failed outpatient management of right labial/groin cellulitis. - Patient afebrile. HR elevated to 114bpm. RR normal. BP stable. WBC at 10.8. SIRS criteria not met - rapidly progressive nature of swelling in groin is concerning for possible necrotizing cellulitis, although there was no crepitus on physical exam and no gas on pelvic imaging - risk factors for necrotizing cellulitis include trauma to skin (razor use) and obesity - continue IV vancomycin (gram positive and MRSA coverage) and Clindamycin (gram neg and anaerobic coverage) - will order US of pelvis for afternoon to surveil groin (although no draining fluid collection noted on CT, suspect fluid will coalesce and form abscess in time) - consider general surgery/BUILD TECHNICIAN consult if surgical intervention becomes necessary (ie if patient clinically worsens on above regimen or if drainable abscess is visualized on imaging) - continue normal saline at 125mls/hr (2) Leukocytosis: - WBC 10.8 on admission with neutrophil predom - likely secondary to developing cellulitis of groin - abx as above - trend CBC (3) Hypokalemia: - K at 3.2 on admission - NSS with 20meQ KCL ordered - repeat BMP Diet: NPO (in case of need for surgical drainage) Dvt ppx: Lovenox Dispo: Medsurg with tele Code: Full History of Present Illness Primary Care Provider: Jason Colon PA-C Shirlene is a 25 yo woman who presented to emergency department for progressive pain and swelling of a right groin infection. On 11/23/20 she noted a nodule on her R labia - which she squeezed and was able to express some discharge. The area became progressively more sore - promoting her to make an appointment with [facility] BUILD TECHNICIAN clinic on 11/25/20. She was diagnosed with a R labial cellulitis (likely originating from an inflamed follicle) and started on a course of Keflex 500mg QID for 10 days. She took two doses before coming to the ED for worsening discomfort. She gave 2 months ago - she has not been sexually active since her delivery. She does shave with a razor in the groin area. On arrival to the ED, her CBC showed mild leukocytosis at 10.8 with neutrophil predominance. CRP was elevated to 27. K low at 3.2. Cat scan of abdomen and pelvis showing cellulitis in R labia extending into perineum and anterior pelvic wall; no drainable fluid collection, no gas in pelvis. Patient was given 1 dose of Ceftriaxone 2g, and started on IV vancomycin and clindamycin. She was given 2 liters of normal saline. Allergies Allergy/AdvReac Type Severity Reaction Status Date / Time nickel AdvReac Mild Rash Verified 11/26/20 01:32 Home Medications Medication Instructions Recorded Confirmed Type albuterol sulfate 90 mcg/actuation 1 inh INHALATION QID PRN 11/25/20 11/26/20 History aerosol inhaler cephalexin 500 mg capsule 500 mg PO Q6H 10 Days #40 cap 11/25/20 11/26/20 Rx Past Med/Surg History Medical History Acute appendicitis Encounter for anatomic survey Evaluate anatomy not seen on prior sonogram Varicella vaccination Surgical History S/P appendectomy S/P surgical removal of pilonidal cyst S/P wisdom tooth extraction Family History Sister Mznpi-Gzdqthuae-Kdpyt syndrome Grandmother (Maternal) Breast cancer Grandmother (Paternal) Breast cancer Mother Non-Hodgkin lymphoma Social History Smoking Status: Never smoker Second Hand Exposure: No; Do You Dip or Chew Tobacco: No; Tobacco Cessation Education Requested by Patient: No Hx Alcohol Use: Yes Alcohol type: beer Hx Substance Use: No Preferred Language: Burkinan Communication Ability: Effective Faculty Instructor Required: No Beliefs That Will Affect Care: None marital status: Single marital status details: Kade Moses (22) [phone] Current Living Situation: Significant Other Current Living Situation Comment: lives with boyfriend current occupational status: 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[employer] Other Information That Helps Us Care for You: No Feels Safe at Home: Yes Safety Concerns: Feels Safe At This Time Assistive Devices: None Review of Systems Constitutional: + chills Genitourinary: no dysuria no vaginal discharge Physical Exam Constitutional: WD/WN, vitals as above cooperative; no acute distress Eyes: + anicteric sclerae ENMT: external ear and nose normal, oropharynx normal Neck: normal visual inspection and trachea midline Respiratory: normal respiratory effort, lungs clear to auscultation Cardiovascular: Rate/Rhythm: regular rhythm and + tachycardic Heart Sounds: normal S1 and normal S2; no murmur Extremities: no pedal edema Gastrointestinal (Abdomen): normal bowel sounds, soft, nontender, no hepatosplenomegaly Skin: no rashes, warm and dry Psychiatric: A+Ox3, euthymic affect Genitourinary: Right labia and pubic area erythematous and edematous concerning for infection. Tender to palpation. + indurated skin. No crepitus Results & Data Results & Data ([facility] [place]) Vital Signs (Past 12 Hours) Vital Signs Temp Pulse Pulse Resp BP BP Pulse Ox 11/26/20 03:49 99 H 16 104/75 99 11/26/20 02:50 99 H 16 91/65 L 97 11/26/20 01:23 36.6 C 114 H 16 109/66 100 11/26/20 01:09 36.5 C 123 H 18 98/61 L 100 Supervising Physician Co-Signing Physician Notes Patient seen and examined, chart reviewed, case discussed with Dr. Mraie and I agree with her assessment and plan as documented above. Briefly, patient is a healthy 25yo C female wit swollen labia. She was seen by outpatient English As A Second Language Teacher for and given Keflex presenting with worsening cellulitis On exam she is afebrile, tachycardic otherwise HD stable, NAD Right labia red, indurated, tender. Right buttock and gluteal cleft tender as well. ?fluctuance in area No crepitus, bullae, abdominal pain, streaking Remainder of exam unremarkable Labs and images reviewed WBC=10.8 Assessment/Plan: -IV Vanc, Clindamycin -Consider repeat imaging to look for drainable collection in the future -Remainder of plan as above Resident Activity Tracking Resident Involvement: Resident Care Provided Care Provided: Adult [facility] Medicine
[2020-11-26] MEDS ORDERED: MoRPHine SULFATE 2 MG/ML CARP IV STA (04:49)
[2020-11-26 04:53] LABS: Influenza A virus by PCR Negative (Neg); Influenza B virus by PCR Negative (Neg); RSV by PCR Negative (Neg); SARS CoV2 RNA(COVID-19) InHosp NEGATIVE (Negative)
[2020-11-26] MEDS ORDERED: MoRPHine SULFATE 2 MG/ML CARP IV PRN (06:16)
[2020-11-26] MEDS ORDERED: POLYETHYLENE (MIRALAX) 17 GM PACK PO PRN (06:16)
[2020-11-26] MEDS ORDERED: ACETAMINOPHEN 325 MG TAB PO PRN (06:16)
[2020-11-26] MEDS ORDERED: PIPERACILL/TAZOBAC CONSULT ACTIVE PRN (07:06)
--- NOTE | 2020-11-26 07:58 | CT Scan Report ---
CT OF THE ABDOMEN AND PELVIS WITH CONTRAST CLINICAL HISTORY: Right pelvic/labial infection. COMPARISON STUDY: CT of the abdomen and pelvis November 20, 2016. TECHNIQUE: Following IV administration of 90 mL of Optiray, axial images of the abdomen and pelvis we re obtained from the lung bases to the proximal femurs. Images were reviewed in the axial, sagittal, and coronal planes. IV contrast was administered without complication. Automated exposure control wa s utilized for the study. A dose lowering technique was utilized adhering to the principles of ALARA . CT DOSE: 508.25 mGy.cm FINDINGS: No pneumatosis, free air or portal venous gas is present there is mild splenomegaly. Mild h epatomegaly is also noted. No biliary or pancreatic ductal dilatation is present. Minimal gallbladder wall thickening is a nonspecific finding. There is no hydronephrosis. The appendix is surgically abs ent. 2.6 cm cyst or dominant follicle within the left ovary is noted. The caliber and wall thickness of small and large bowel are normal. Note is made of moderate infiltration within the right labia whi ch extends into the right groin and lower pelvis. There is no soft tissue gas. There is no fluid ana maría ection is suggest an abscess. Major vasculature is patent. IMPRESSION: 1. Moderate infiltration within the right labia, right groin and subcutaneous tissues of the lower pe lvis. This suggests cellulitis. No abscess. No soft tissue gas. 2. 2.6 cm cyst or dominant follicle within the left ovary. 3. No bowel obstruction. No bowel wall thickening. ACT 112: Negative or not required by law. Electronically signed by: Tamir Louis M.D. 11/26/2020 7:57 AM
--- NOTE | 2020-11-26 07:59 | Hospitalist Progress Note ---
Date of Service November 26, 2020 Assessment & Plan (1) Cellulitis of labia: Shirlene Oliva is a 25y/o with no significant past medical history; who presented to the ER for concerns of a worsening groin infection. Cellulitis of labia: - worsening erythema/edema and pain over the last several days and including since admission - CT Abd/pelvis demonstrating inflammation within the right labia, groin, and subcutaneous tissues of the pelvis, no abscess, and no soft tissue gas - repeat CT pelvis this AM demonstrating increase in extent of cellulitis, with no signs of soft tissue gas or fluid collection - continue vancomycin, and clindamycin - addition of Zosyn given worsening pain and signs of spread of cellulitis - demarcated current spread of injection, will continue to monitor regularly - consideration of repeat imaging verse surgical//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 Mendiola findings and care plan. Subjective Patient is having more intense pain this morning within groin and continued feel ing of increasing redness/tenderness to her groin since admission. Utilized morphine for pain control with minimal relief, did have more success with Tylenol and icing. Review of Systems Review of Systems: All systems reviewed & are unremarkable except as noted in Subjective Physical Exam Constitutional: WD/WN, vitals as above Eyes: PERRL, conjunctivae normal, anicteric sclerae Respiratory: normal respiratory effort; no respiratory distress, no labored breathing and no cough Cardiovascular: Rate/Rhythm: regular rate Gastrointestinal (Abdomen): normal bowel sounds, soft, nontender, no hepatosplenomegaly Skin: erythema and edema of the right labia, with expansion of erythema over mons pubis a, ddown right thigh, and tracking into perineum Results & Data Results & Data ([facility]) Vital Signs (Past 12 Hours) Vital Signs Temp Pulse Pulse Resp BP BP Pulse Ox 11/26/20 06:18 36.8 C 106 H 18 109/56 L 99 11/26/20 05:23 90 16 110/63 96 11/26/20 03:49 99 H 16 104/75 99 11/26/20 02:50 99 H 16 91/65 L 97 11/26/20 01:23 36.6 C 114 H 16 109/66 100 11/26/20 01:09 36.5 C 123 H 18 98/61 L 100 Laboratory Results 11/26/20 11/26/20 11/26/20 Range/Units 09:41 09:41 03:49 WBC 12.92 H (4.8-10.8) K/uL RBC 3.93 L (4.2-5.4) M/uL Hgb 12.2 (12.0-16.0) g/dL Hct 36.2 L (37-47) % MCV 92.1 (80-100) fL MCH 31.0 (25-34) pg MCHC 33.7 (32-36) g/dL RDW Std Deviation 43.2 (36.4-46.3) fL RDW Coeff of Dot 12.7 (11.5-14.5) % Plt Count 134 (130-400) K/uL MPV 11.3 H (7.4-10.4) fL Immature Gran % (Auto) 1.2 % Neut % (Auto) 79.9 % Lymph % (Auto) 7.7 % [place] % (Auto) 10.1 % Eos % (Auto) 0.9 % Baso % (Auto) 0.2 % Neut # (Auto) 10.34 H (1.4-6.5) K/uL Lymph # (Auto) 0.99 L (1.2-3.4) K/uL [place] # (Auto) 1.31 H (0.11-0.59) K/uL Eos # (Auto) 0.11 (0-0.5) K/uL Baso # (Auto) 0.02 (0-0.2) K/uL Immature Gran # (Auto) 0.15 H (0.00-0.02) K/uL Echinocytes ESR (0-20) mm/hr Sodium 143 (136-145) mmol/L Potassium 3.6 (3.5-5.1) mmol/L Chloride 114 H (98-107) mmol/L Carbon Dioxide 23 (21-32) mmol/L Anion Gap 6.0 (3-11) BUN 7 (7-18) mg/dl Creatinine 0.86 (0.6-1.2) mg/dl Est Cr Clr Drug Dosing 98.2 ml/min Est GFR ( Amer) 109.6 Est GFR (Non-Af Amer) 94.6 BUN/Creatinine Ratio 7.7 L (10-20) Glucose 106 H (70-99) mg/dl Lactate (0.4-2.0) mmol/L Calcium 8.6 (8.5-10.1) mg/dl Total Bilirubin (0.2-1) mg/dl Direct Bilirubin (0-0.2) mg/dl AST (15-37) U/L ALT (12-78) U/L Alkaline Phosphatase (45-117) U/L Total Creatine Kinase (26-192) U/L C-Reactive Protein (0-0.29) mg/dl Total Protein (6.4-8.2) gm/dl Albumin (3.4-5.0) gm/dl HCG, Qual (Negative) COVID-19 Eval Order SARS-CoV-2 (PCR) NEGATIVE (Negative) Influenza Type A (PCR) Negative (Neg) Influenza Type B (PCR) Negative (Neg) RSV (RT-PCR) Negative (Neg) 11/26/20 11/26/20 11/26/20 Range/Units 03:49 03:33 01:52 WBC (4.8-10.8) K/uL RBC (4.2-5.4) M/uL Hgb (12.0-16.0) g/dL Hct (37-47) % MCV (80-100) fL MCH (25-34) pg MCHC (32-36) g/dL RDW Std Deviation (36.4-46.3) fL RDW Coeff of Dot (11.5-14.5) % Plt Count (130-400) K/uL MPV (7.4-10.4) fL Immature Gran % (Auto) % Neut % (Auto) % Lymph % (Auto) % [place] % (Auto) % Eos % (Auto) % Baso % (Auto) % Neut # (Auto) (1.4-6.5) K/uL Lymph # (Auto) (1.2-3.4) K/uL [place] # (Auto) (0.11-0.59) K/uL Eos # (Auto) (0-0.5) K/uL Baso # (Auto) (0-0.2) K/uL Immature Gran # (Auto) (0.00-0.02) K/uL Echinocytes ESR 44 H (0-20) mm/hr Sodium (136-145) mmol/L Potassium (3.5-5.1) mmol/L Chloride (98-107) mmol/L Carbon Dioxide (21-32) mmol/L Anion Gap (3-11) BUN (7-18) mg/dl Creatinine (0.6-1.2) mg/dl Est Cr Clr Drug Dosing ml/min Est GFR ( Amer) Est GFR (Non-Af Amer) BUN/Creatinine Ratio (10-20) Glucose (70-99) mg/dl Lactate 1.2 (0.4-2.0) mmol/L Calcium (8.5-10.1) mg/dl Total Bilirubin (0.2-1) mg/dl Direct Bilirubin (0-0.2) mg/dl AST (15-37) U/L ALT (12-78) U/L Alkaline Phosphatase (45-117) U/L Total Creatine Kinase (26-192) U/L C-Reactive Protein (0-0.29) mg/dl Total Protein (6.4-8.2) gm/dl Albumin (3.4-5.0) gm/dl HCG, Qual (Negative) COVID-19 Eval Order [facility]FluRsv at [facility] SARS-CoV-2 (PCR) (Negative) Influenza Type A (PCR) (Neg) Influenza Type B (PCR) (Neg) RSV (RT-PCR) (Neg) 11/26/20 11/26/20 11/26/20 Range/Units 01:52 01:52 01:52 WBC 10.82 H (4.8-10.8) K/uL RBC 4.14 L (4.2-5.4) M/uL Hgb 13.4 (12.0-16.0) g/dL Hct 39.0 (37-47) % MCV 94.2 (80-100) fL MCH 32.4 (25-34) pg MCHC 34.4 (32-36) g/dL RDW Std Deviation 43.8 (36.4-46.3) fL RDW Coeff of Dot 12.7 (11.5-14.5) % Plt Count 142 (130-400) K/uL MPV 11.1 H (7.4-10.4) fL Immature Gran % (Auto) 1.0 % Neut % (Auto) 82.7 % Lymph % (Auto) 6.4 % [place] % (Auto) 9.0 % Eos % (Auto) 0.8 % Baso % (Auto) 0.1 % Neut # (Auto) 8.95 H (1.4-6.5) K/uL Lymph # (Auto) 0.69 L (1.2-3.4) K/uL [place] # (Auto) 0.97 H (0.11-0.59) K/uL Eos # (Auto) 0.09 (0-0.5) K/uL Baso # (Auto) 0.01 (0-0.2) K/uL Immature Gran # (Auto) 0.11 H (0.00-0.02) K/uL Echinocytes 1+ ESR (0-20) mm/hr Sodium 141 (136-145) mmol/L Potassium 3.2 L (3.5-5.1) mmol/L Chloride 112 H (98-107) mmol/L Carbon Dioxide 25 (21-32) mmol/L Anion Gap 4.0 (3-11) BUN 9 (7-18) mg/dl Creatinine 0.95 (0.6-1.2) mg/dl Est Cr Clr Drug Dosing 88.3 ml/min Est GFR ( Amer) 97.2 Est GFR (Non-Af Amer) 83.8 BUN/Creatinine Ratio 9.3 L (10-20) Glucose 142 H (70-99) mg/dl Lactate (0.4-2.0) mmol/L Calcium 8.8 (8.5-10.1) mg/dl Total Bilirubin 0.8 (0.2-1) mg/dl Direct Bilirubin 0.2 (0-0.2) mg/dl AST 10 L (15-37) U/L ALT 32 (12-78) U/L Alkaline Phosphatase 88 (45-117) U/L Total Creatine Kinase 31 (26-192) U/L C-Reactive Protein 27.40 H (0-0.29) mg/dl Total Protein 6.6 (6.4-8.2) gm/dl Albumin 3.2 L (3.4-5.0) gm/dl HCG, Qual Negative (Negative) COVID-19 Eval Order SARS-CoV-2 (PCR) (Negative) Influenza Type A (PCR) (Neg) Influenza Type B (PCR) (Neg) RSV (RT-PCR) (Neg) Diagnostic Findings CT OF THE ABDOMEN AND PELVIS WITH CONTRAST CLINICAL HISTORY: Right pelvic/labial infection. COMPARISON STUDY: CT of the abdomen and pelvis November 20, 2016. TECHNIQUE: Following IV administration of 90 mL of Optiray, axial images of the abdomen and pelvis were obtained from the lung bases to the proximal femurs. Images were reviewed in the axial, sagittal, and coronal planes. IV contrast was administered without complication. Automated exposure control was utilized for the study. A dose lowering technique was utilized adhering to the principles of ALARA. CT DOSE: 508.25 mGy.cm FINDINGS: No pneumatosis, free air or portal venous gas is present there is mild splenomegaly. Mild hepatomegaly is also noted. No biliary or pancreatic ductal dilatation is present. Minimal gallbladder wall thickening is a nonspecific finding. There is no hydronephrosis. The appendix is surgically absent. 2.6 cm cyst or dominant follicle within the left ovary is noted. The caliber and wall thickness of small and large bowel are normal. Note is made of moderate infiltration within the right labia which extends into the right groin and lower pelvis. There is no soft tissue gas. There is no fluid collection is suggest an abscess. Major vasculature is patent. IMPRESSION: 1. Moderate infiltration within the right labia, right groin and subcutaneous tissues of the lower pelvis. This suggests cellulitis. No abscess. No soft tissue gas. 2. 2.6 cm cyst or dominant follicle within the left ovary. 3. No bowel obstruction. No bowel wall thickening. Electronically signed by: Tamir Louis M.D. 11/26/2020 7:[address] OF THE PELVIS WITHOUT CONTRAST CLINICAL HISTORY: Expanding cellulitis, increasing pain COMPARISON STUDY: CT of the abdomen and pelvis November 2020 at 2:40 AM. TECHNIQUE: Axial images of the pelvis were obtained without IV contrast. Sagittal and coronal reconstructions were viewed. Automated exposure control was utilized for the study. A dose lowering technique was utilized adhering to the principles of ALARA. FINDINGS: Contrast within the ureters and bladder is from recent contrast- enhanced CT. A cystic lesion within the left ovary is better depicted on prior contrast enhanced CT. This could reflect a dominant follicle or a cyst. Prominent right external iliac lymph node measures 9 mm in short axis diameter and is likely reactive. Prominent right inguinal lymph nodes are likely reactive. No soft tissue gas is present. There is no fluid collection. There is skin thickening with infiltration and fluid within the right aspect of the perineum, bilateral labia, right greater than left, as well as the right groin and lower pelvis. Extent has increased since exam performed earlier today. Visualized skeletal structures are unremarkable. The appendix is surgically absent. The caliber of visualized small and large bowel are normal. IMPRESSION: 1. Mild increase in extent of cellulitis, including skin thickening and moderate inflammation of the right perineum, bilateral labia, right greater the left, right groin and subcutaneous tissues of the lower pelvis. No soft tissue gas. No fluid collection. 2. Prominent iliac and inguinal lymph nodes which are likely reactive. Electronically signed by: Tamir Louis M.D. 11/26/2020 9:45 AM Medications Administered Current Inpatient Medications Acetaminophen (Acetaminophen 500 Mg Tab) 1,000 mg PO Q4H PRN PRN Reason: Pain or Fever Stop: 12/26/20 06:15 Enoxaparin Sodium (Enoxaparin Inj 40 Mg/0.4 Ml Syr) 40 mg SQ QAM [facility] Stop: 12/26/20 08:59 Last Admin: 11/26/20 08:31 Dose: Not Given Documented by: Potassium Chloride/Sodium Chloride (Normal Saline W/20 Meq Kcl) 20 meq in 1,000 mls @ 125 mls/hr IV .Q8H [facility] Stop: 11/27/20 06:44 Last Admin: 11/26/20 08:30 Dose: 125 mls/hr Documented by: Clindamycin Phosphate 900 mg/ (Dextrose) 56 mls @ 112 mls/hr IV Q8H [facility] Stop: 12/03/20 11:59 Piperacillin Sod/Tazobactam (Sod 4.5 gm/ Dextrose) 120 mls @ 30 mls/hr IV Q8H [facility]; Protocol Stop: 12/06/20 11:59 Vancomycin HCl 1,000 mg/ (Sodium Chloride) 270 mls @ 200 mls/hr IV Q8H [facility] Stop: 12/03/20 09:59 Last Admin: 11/26/20 10:55 Dose: 200 mls/hr Documented by: Miscellaneous Information (Vancomycin Consult Active) 1 ea N/A UD PRN PRN Reason: Consult Stop: 12/26/20 03:04 Miscellaneous Information (Piperacill/Tazobac Consult Active) 1 ea N/A UD PRN PRN Reason: Consult Stop: 12/26/20 07:05 Morphine Sulfate (Morphine Sulfate 2 Mg/Ml Carp) 2 mg IV Q30M PRN PRN Reason: groin pain Stop: 12/10/20 06:15 Last Admin: 11/26/20 10:55 Dose: 2 mg Documented by: Ondansetron HCl (Ondansetron Inj 2 Mg/Ml 2 Ml Vial) 4 mg IV Q6H PRN PRN Reason: Nausea Stop: 12/26/20 06:15 Polyethylene Glycol (Polyethylene (Miralax) 17 Gm Pack) 17 gm PO DAILY PRN PRN Reason: Constipation Stop: 12/26/20 06:15 Resident Activity Tracking Resident Involvement: Resident Care Provided Care Provided: Adult Hospital Medicine
[2020-11-26] MEDS ORDERED: PIPERACILLIN/TAZOBACTAM 4.5 GM in DEXTROSE 5% 100 ML IV ONE (08:00)
[2020-11-26] MEDS: NSS + 20MEQ KCL 20 MEQ/1,000 ML BAG IV SCH ×2 (08:30→19:28)
[2020-11-26] MEDS: MoRPHine SULFATE 2 MG/ML CARP IV PRN ×4 (08:30→19:35)
[2020-11-26] MEDS: ENOXAPARIN INJ 40 MG/0.4 ML SYR SQ SCH (08:31)
[2020-11-26] MEDS ORDERED: VANCOMYCIN TROUGH ONE (09:30)
--- NOTE | 2020-11-26 09:32 | Pharmacy Report ---
Pharmacy Abx Initial Consult - Date of Service November 26, 2020 - Pharmacy Dosing Scope Date of Consult: 11/26/20 Consultation requested by: Georgette Marie Pharmacy is consulted to initiate VANCOMYCIN/ZOSYN IV dosing therapy, order appropriate labs and adjust drug dose/frequency. - Subjective The patient is a 25 year old F admitted on 11/26/20 03:35. - Objective Height: 5 ft 1 in Weight: 82.5 kg Vital Signs (Past 12hrs): Vital Signs Temp Pulse Pulse Resp BP BP Pulse Ox 11/26/20 07:13 37.2 C 104 H 16 98/59 L 98 11/26/20 06:18 36.8 C 106 H 18 109/56 L 99 11/26/20 05:23 90 16 110/63 96 11/26/20 03:49 99 H 16 104/75 99 11/26/20 02:50 99 H 16 91/65 L 97 11/26/20 01:23 36.6 C 114 H 16 109/66 100 11/26/20 01:09 36.5 C 123 H 18 98/61 L 100 Lab Results (24hrs): Laboratory Tests (24 Hours) 11/26/20 11/26/20 11/26/20 01:52 01:52 01:52 WBC 10.82 H Neut # (Auto) 8.95 H ESR 44 H Creatinine 0.95 Est Cr Clr Drug Dosing 88.3 Total Creatine Kinase 31 C-Reactive Protein 27.40 H - Risk Factors for Resistance * Antimicrobial use within the last 90 days: Keflex - Assessment & Plan Assessment 25 year old F admitted with right labial/groin cellulitis after failing outpatient Keflex. Plan Vancomycin IV Received Vancomycin 1750mg IV (21mg/kg) loading dose in the ER. Patient meets criteria for vancomycin AUC dosing nomogram. Will start Vancomycin 1000mg IV q8h per the Vancomycin AUC dosing nomogram. Will check a trough level on 11/27 prior to the 1000 dose. AUC/VERNA is the preferred PK/PD target for vancomycin. Target AUC/VERNA = 400-600 AUC guided dosing is effective and associated with decreased risk of nephrotoxicity Pharmacy will continue to follow and will adjust dose/frequency as necessary. Thank you.
--- NOTE | 2020-11-26 09:46 | CT Scan Report ---
CT OF THE PELVIS WITHOUT CONTRAST CLINICAL HISTORY: Expanding cellulitis, increasing pain COMPARISON STUDY: CT of the abdomen and pelvis November 2020 at 2:40 AM. TECHNIQUE: Axial images of the pelvis were obtained without IV contrast. Sagittal and coronal reconst ructions were viewed. Automated exposure control was utilized for the study. A dose lowering techniq ue was utilized adhering to the principles of ALARA. FINDINGS: Contrast within the ureters and bladder is from recent contrast-enhanced CT. A cystic lesio n within the left ovary is better depicted on prior contrast enhanced CT. This could reflect a domina nt follicle or a cyst. Prominent right external iliac lymph node measures 9 mm in short axis diameter and is likely reactive. Prominent right inguinal lymph nodes are likely reactive. No soft tissue gas is present. There is no fluid collection. There is skin thickening with infiltration and fluid withi n the right aspect of the perineum, bilateral labia, right greater than left, as well as the right gr oin and lower pelvis. Extent has increased since exam performed earlier today. Visualized skeletal st ructures are unremarkable. The appendix is surgically absent. The caliber of visualized small and lar ge bowel are normal. IMPRESSION: 1. Mild increase in extent of cellulitis, including skin thickening and moderate inflammation of the right perineum, bilateral labia, right greater the left, right groin and subcutaneous tissues of the lower pelvis. No soft tissue gas. No fluid collection. 2. Prominent iliac and inguinal lymph nodes which are likely reactive. ACT 112: Negative or not required by law. Electronically signed by: Tamir Louis M.D. 11/26/2020 9:45 AM
[2020-11-26 10:09] LABS: Hematocrit (blood only) 36.2 % (37-47); Hemoglobin 12.2 g/dL (12.0-16.0); Mean Corpuscular Hgb Conc 33.7 g/dL (32-36); Mean Corpuscular Volume 92.1 fL (80-100); Mean Platelet Volume 11.3 fL (7.4-10.4); Platelet Count 134 K/uL (130-400); RDW Coefficient of Variation 12.7 % (11.5-14.5); RDW Standard Deviation 43.2 fL (36.4-46.3); Red Blood Count 3.93 M/uL (4.2-5.4); White Blood Count 12.92 K/uL (4.8-10.8)
[2020-11-26 10:28] LABS: Basophils # (auto) 0.02 K/uL (0-0.2); Basophils % (auto) 0.2 %; Eosinophils # (auto) 0.11 K/uL (0-0.5); Eosinophils % (auto) 0.9 %; Immature Granulocytes # (auto) 0.15 K/uL (0.00-0.02); Immature Granulocytes % (auto) 1.2 %; Lymphocytes # (auto) 0.99 K/uL (1.2-3.4); Lymphocytes % (auto) 7.7 %; Monocytes # (auto) 1.31 K/uL (0.11-0.59); Monocytes % (auto) 10.1 %; Neutrophils # (auto) 10.34 K/uL (1.4-6.5); Neutrophils % (auto) 79.9 %
[2020-11-26 10:32] LABS: BUN Creatinine Ratio 7.7 (10-20); Calcium 8.6 mg/dl (8.5-10.1); Creatinine Clr Calc Pharmacy 98.2 ml/min; Est GFR (African American) 109.6; Est GFR (Non-African American) 94.6; Potassium 3.6 mmol/L (3.5-5.1)
[2020-11-26] MEDS: VANCOMYCIN HCL 1,000 MG in SODIUM CHLORIDE 0.9% 250 ML IV SCH ×2 (10:55→19:28)
[2020-11-26] MEDS ORDERED: GABAPENTIN 300 MG CAP PO STA (11:04)
[2020-11-26] MEDS: ONDANSETRON INJ 2 MG/ML 2 ML VIAL IV PRN (12:19)
[2020-11-26] MEDS: ACETAMINOPHEN 500 MG TAB PO PRN ×2 (12:19→20:51)
[2020-11-26] MEDS: CLINDAMYCIN 900 MG in DEXTROSE 5% 50 ML IV SCH ×2 (12:19→19:36)
[2020-11-26] MEDS: PIPERACILLIN/TAZOBACTAM 4.5 GM in DEXTROSE 5% 100 ML IV SCH ×2 (12:33→21:02)
[2020-11-26] MEDS: GABAPENTIN 300 MG CAP PO PRN (18:13)
--- NOTE | 2020-11-26 20:40 | Billing Data ---
Date of Service November 26, 2020 Coding Level of Care Code 82006 Initial Inpt Care Lvl 2
[2020-11-27] MEDS: GABAPENTIN 300 MG CAP PO PRN (02:03)
[2020-11-27] MEDS: VANCOMYCIN HCL 1,000 MG in SODIUM CHLORIDE 0.9% 250 ML IV SCH ×2 (02:04→10:32)
[2020-11-27] MEDS: MoRPHine SULFATE 2 MG/ML CARP IV PRN ×2 (02:56→08:10)
[2020-11-27] MEDS: NSS + 20MEQ KCL 20 MEQ/1,000 ML BAG IV SCH (03:36)
[2020-11-27] MEDS: CLINDAMYCIN 900 MG in DEXTROSE 5% 50 ML IV SCH ×3 (04:23→19:43)
[2020-11-27] MEDS ORDERED: GABAPENTIN 300 MG CAP PO STA (04:55)
[2020-11-27] MEDS: PIPERACILLIN/TAZOBACTAM 4.5 GM in DEXTROSE 5% 100 ML IV SCH ×3 (05:04→21:42)
[2020-11-27 08:37] LABS: Eosinophils # (auto) 0.17 K/uL (0-0.5); Eosinophils % (auto) 1.6 %; Hematocrit (blood only) 35.3 % (37-47); Hemoglobin 11.9 g/dL (12.0-16.0); Immature Granulocytes # (auto) 0.04 K/uL (0.00-0.02); Immature Granulocytes % (auto) 0.4 %; Lymphocytes # (auto) 1.38 K/uL (1.2-3.4); Lymphocytes % (auto) 12.8 %; Mean Corpuscular Hemoglobin 31.2 pg (25-34); Mean Corpuscular Hgb Conc 33.7 g/dL (32-36); Mean Corpuscular Volume 92.4 fL (80-100); Mean Platelet Volume 10.8 fL (7.4-10.4); Monocytes # (auto) 1.16 K/uL (0.11-0.59); Monocytes % (auto) 10.8 %; Neutrophils # (auto) 7.99 K/uL (1.4-6.5); Neutrophils % (auto) 74.4 %; Platelet Count 130 K/uL (130-400); RDW Coefficient of Variation 13.1 % (11.5-14.5); RDW Standard Deviation 44.2 fL (36.4-46.3); Red Blood Count 3.82 M/uL (4.2-5.4); White Blood Count 10.74 K/uL (4.8-10.8)
[2020-11-27 09:02] LABS: Calcium 8.5 mg/dl (8.5-10.1); Creatinine Clr Calc Pharmacy 88.2 ml/min; Est GFR (African American) 93.6; Est GFR (Non-African American) 80.7; Potassium 3.4 mmol/L (3.5-5.1)
[2020-11-27] MEDS ORDERED: VANCOMYCIN TROUGH ONE (09:30)
--- NOTE | 2020-11-27 09:52 | CT Scan Report ---
CT SCAN OF THE PELVIS WITHOUT IV CONTRAST CLINICAL HISTORY: Worsening induration of the groin. COMPARISON STUDY: Pelvic CT scans dated 11/26/2020. TECHNIQUE: CT scan of the pelvis is performed from the pelvic inlet to the proximal femora. Images ar e reviewed in the axial, sagittal, and coronal planes. IV contrast was not administered as per the norma [place]antig[place] clinician. Note that the examination was performed in suboptimal fashion without IV contrast. A dose lowering technique was utilized adhering to the principles of ALARA. CT DOSE: 598.68 mGy.cm FINDINGS: The bladder and uterus are normal as visualized. There is an approximately 5 cm cyst of the left ovar y seen on image #79. This has increased in size from yesterday. There is trace free fluid in the left paracolic gutter, new from yesterday. There is evidence of previous appendectomy. Imaged portions of the small bowel and colon are normal in caliber. No intraperitoneal free air is seen in the pelvis. There is no inguinal adenopathy. Mildly enlarged right external iliac chain nodes measure up to 11 mm in short axis. These are likely reactive. The bony pelvis appears intact. The sacroiliac and hip joints are normal. No lytic or blastic lesion is seen. The regional musculature is normal and symmetric. Again seen is dermal thickening with infil tration and subcutaneous fluid in the right perineal soft tissues, the bilateral labia (right greater than left), the right groin, the lower pelvis, and the right upper thigh. This has modestly increase d as compared to yesterday's examination. No deep soft tissue gas is identified. No organized/drainab le fluid collection is seen to suggest abscess on this unenhanced examination. IMPRESSION: 1. Findings of cellulitis are again seen involving the right pelvic/perineal soft tissues as detailed above. This has modestly increased as compared to yesterday. 2. There is no deep soft tissue gas, and no organized fluid collection is seen to suggest abscess on this unenhanced examination. 3. Mildly enlarged right iliac chain nodes are likely reactive. 4. There is a 5 cm simple cystic lesion identified in the left ovary. This has increased in size from yesterday and there is trace fluid in the adjacent paracolic gutter. This may represent a rupturing ovarian cyst. If there is clinical concern for ovarian torsion a pelvic ultrasound should be consider ed. 5. Additional findings as above. ACT 112: Negative or not required by law. Electronically signed by: Armando Laguerre M.D. 11/27/2020 9:51 AM
--- NOTE | 2020-11-27 10:32 | Hospitalist Progress Note ---
Date of Service November 27, 2020 Assessment & Plan (1) Cellulitis of labia: Shirlene Oliva is a 25y/o with no significant past medical history; who presented to the ER for concerns of a worsening groin infection. Cellulitis of labia: - worsening erythema/edema and pain over the last several days and including since admission - CT Abd/pelvis demonstrating inflammation within the right labia, groin, and subcutaneous tissues of the pelvis, no abscess, and no soft tissue gas - repeat CT pelvis this AM demonstrating again demonstrating no signs of soft tissue gas or fluid collection, but left paracolic free fluid - continue vancomycin, clindamycin, zosyn - increased vancomycin trough goal to 15 - LIFE SKILLS CONSULTANT consulted: recommended addition of FINANCIAL ADVISOR for pain control, blood cultures, and continued observation for additional 48hrs on current abx regimen - general surgery consulted - blood cultures pending (drawn after 24+ hrs of abx) - morphine FINANCIAL ADVISOR ordered - Ibuprofen 800mg, and Tylenol 1000mg Q8h scheduled Hypokalemia: - K of 3.2 on admission - 3.4 this AM repleted - continue to monitor daily and replete as indicated Diet: Regular DVT ppx: Lovenox CODE STATUS: Full code Admission and Anticipated Discharge Date Admission Date: November 26, 2020 Supervising Physician Co-Signing Physician Notes Resident Physician Supervision Note: I independently interviewed and examined the patient and verified the curtis history and physical, reviewed labs and image studies and agree with resident Dr. Mendiola findings and care plan. Subjective Patient is having more intense pain this morning within groin and continued feeling of increasing redness/tenderness to her groin. Concerned about the extent of the redness and tenderness and the lack of improvement since yesterday. Had maximum temperature yesterday of 37.9C but not having any additional symptoms at this time. Review of Systems Review of Systems: All systems reviewed & are unremarkable except as noted in Subjective Physical Exam Constitutional: WD/WN, vitals as above Eyes: PERRL, conjunctivae normal, anicteric sclerae Respiratory: normal respiratory effort; no respiratory distress, no labored breathing and no cough Cardiovascular: Rate/Rhythm: regular rate Gastrointestinal (Abdomen): normal bowel sounds, soft, nontender, no hepatosplenomegaly Skin: erythema and edema of the right labia, with expansion of erythema over mons pubis and down right thigh and into perineum, expansion along right inguinal canal outside of demarcated margins from yesterday Results & Data Results & Data ([facility]) Vital Signs (Past 12 Hours) Vital Signs Temp Pulse Pulse Resp BP BP Pulse Ox 11/27/20 07:13 37.0 C 80 18 159/87 H 96 11/27/20 03:39 36.7 C 89 16 101/68 94 11/26/20 23:08 36.7 C 83 18 102/65 95 11/26/20 22:50 92 H Laboratory Results 11/27/20 11/27/20 11/27/20 Range/Units 09:24 08:22 08:22 WBC 10.74 (4.8-10.8) K/uL RBC 3.82 L (4.2-5.4) M/uL Hgb 11.9 L (12.0-16.0) g/dL Hct 35.3 L (37-47) % MCV 92.4 (80-100) fL MCH 31.2 (25-34) pg MCHC 33.7 (32-36) g/dL RDW Std Deviation 44.2 (36.4-46.3) fL RDW Coeff of Dot 13.1 (11.5-14.5) % Plt Count 130 (130-400) K/uL MPV 10.8 H (7.4-10.4) fL Immature Gran % (Auto) 0.4 % Neut % (Auto) 74.4 % Lymph % (Auto) 12.8 % [place] % (Auto) 10.8 % Eos % (Auto) 1.6 % Baso % (Auto) 0.0 % Neut # (Auto) 7.99 H (1.4-6.5) K/uL Lymph # (Auto) 1.38 (1.2-3.4) K/uL [place] # (Auto) 1.16 H (0.11-0.59) K/uL Eos # (Auto) 0.17 (0-0.5) K/uL Baso # (Auto) 0.00 (0-0.2) K/uL Immature Gran # (Auto) 0.04 H (0.00-0.02) K/uL Sodium 144 (136-145) mmol/L Potassium 3.4 L (3.5-5.1) mmol/L Chloride 114 H (98-107) mmol/L Carbon Dioxide 24 (21-32) mmol/L Anion Gap 6.0 (3-11) BUN 9 (7-18) mg/dl Creatinine 0.98 (0.6-1.2) mg/dl Est Cr Clr Drug Dosing 88.2 ml/min Est GFR ( Amer) 93.6 Est GFR (Non-Af Amer) 80.7 BUN/Creatinine Ratio 9.0 L (10-20) Glucose 94 (70-99) mg/dl Calcium 8.5 (8.5-10.1) mg/dl Vancomycin Trough 11.1 (See Comment) mcg/ml Medications Administered Current Inpatient Medications Acetaminophen (Acetaminophen 500 Mg Tab) 1,000 mg PO Q8 [facility] Stop: 12/27/20 10:29 Last Admin: 11/27/20 11:32 Dose: 1,000 mg Documented by: Enoxaparin Sodium (Enoxaparin Inj 40 Mg/0.4 Ml Syr) 40 mg SQ QAM [facility] Stop: 12/26/20 08:59 Last Admin: 11/27/20 11:27 Dose: 40 mg Documented by: Gabapentin (Gabapentin 300 Mg Cap) 300 mg PO Q8H PRN PRN Reason: genital pain Stop: 12/26/20 17:14 Last Admin: 11/27/20 02:03 Dose: 300 mg Documented by: Clindamycin Phosphate 900 mg/ (Dextrose) 56 mls @ 112 mls/hr IV Q8H [facility] Stop: 12/03/20 11:59 Last Infusion: 11/27/20 04:55 Dose: Infused Documented by: Piperacillin Sod/Tazobactam (Sod 4.5 gm/ Dextrose) 120 mls @ 30 mls/hr IV Q8H [facility]; Protocol Stop: 12/06/20 11:59 Last Infusion: 11/27/20 09:52 Dose: Infused Documented by: Vancomycin HCl 1,250 mg/ (Sodium Chloride) 275 mls @ 190 mls/hr IV Q8H [facility] Stop: 12/03/20 10:29 Last Admin: 11/27/20 11:33 Dose: 190 mls/hr Documented by: Sodium Chloride (Nss 1000ml) 1,000 mls @ 15 mls/hr IV .Q24H [facility] Stop: 12/11/20 11:38 Last Admin: 11/27/20 12:20 Dose: 15 mls/hr Documented by: Ibuprofen (Ibuprofen 800 Mg Tab) 800 mg PO TIDM [facility] Stop: 12/27/20 11:59 Last Admin: 11/27/20 11:04 Dose: 800 mg Documented by: Miscellaneous (Incremental Obstetrician Gynecologist Titration ) 1 ea N/A UD PRN PRN Reason: FINANCIAL ADVISOR Dose Titration x 1 Stop: 12/27/20 11:36 Miscellaneous (Lock-Out Obstetrician Gynecologist Titration ) 1 ea N/A UD PRN PRN Reason: FINANCIAL ADVISOR Lock-Out Titration x 1 Stop: 12/11/20 11:36 Miscellaneous Information (Vancomycin Consult Active) 1 ea N/A UD PRN PRN Reason: Consult Stop: 12/26/20 03:04 Miscellaneous Information (Piperacill/Tazobac Consult Active) 1 ea N/A UD PRN PRN Reason: Consult Stop: 12/26/20 07:05 Morphine Sulfate (Morphine Sulfate Obstetrician Gynecologist 30 Mg/30 Ml) 30 mg IV PRN PRN; Protocol PRN Reason: FINANCIAL ADVISOR Pain Titration Stop: 12/11/20 11:36 Last Admin: 11/27/20 12:19 Dose: 30 mg Documented by: Naloxone HCl (Naloxone Hcl 0.4 Mg/1 Ml Vial/Carp) 0.1 mg IV Q5M PRN; Protocol PRN Reason: Oversedation/Resp Depression Stop: 12/11/20 11:36 Ondansetron HCl (Ondansetron Inj 2 Mg/Ml 2 Ml Vial) 4 mg IV Q6H PRN PRN Reason: Nausea Stop: 12/26/20 06:15 Last Admin: 11/26/20 12:19 Dose: 4 mg Documented by: Polyethylene Glycol (Polyethylene (Miralax) 17 Gm Pack) 17 gm PO DAILY PRN PRN Reason: Constipation Stop: 12/26/20 06:15 Resident Activity Tracking Resident Involvement: Resident Care Provided Care Provided: Adult Hospital Medicine
[2020-11-27] MEDS: IBUPROFEN 800 MG TAB PO SCH ×2 (11:04→17:45)
--- NOTE | 2020-11-27 11:12 | Pharmacy Report ---
Pharmacy Abx Dose Short Note - Date of Service November 27, 2020 - Assessment & Plan Assessment 25 year old F receiving IV Vancomycin, Zosyn, and Clindamycin (not a consult) for treatment of R labial/groin cellulitis; failed outpatient Keflex Day # 2 of antimicrobial therapy. * Dr. Mendiola called Pharmacy today to discuss patient's infection not improving. He would like to dose Vancomycin more aggressively at this time. * Vancomycin was previously being dosed according to AUC nomogram. Plan Vancomycin * Trough level of 11.1 mcg/mL (appropriately drawn) is subtherapeutic. Will increase dose to target a higher trough. * Change to 1250 mg (~14.5 mg/kg) IV every 8 hours * Goal trough level for cellulitis : ~15 mcg/mL per Dr. Mendiola (higher trough concentration needed) * Trough level ordered for: 11/28/20 @ 1000 (prior to 4th dose and therefore sh ould be reflective of steady state) Pharmacy will continue to follow and will adjust dose/frequency as necessary. Thank you.
[2020-11-27] MEDS: ENOXAPARIN INJ 40 MG/0.4 ML SYR SQ SCH (11:27)
--- NOTE | 2020-11-27 11:30 | OB/GYN Consultation ---
Date of Consultation November 27, 2020 Assessment & Plan (1) Cellulitis of labia: (2) Cellulitis of buttock: Severe cellulitis noted. Has been on antibiotics for about 24 hours--zosyn, vanco, clinda. this regimen will certainly cover the most likely pathogens of beta hem strep and staph or mrsa This seems to be a reasonable combination for the time being. Given the severity of the cellulitis, it is not surprising that we have not seen significant improvement. IN fact there can be a deepening of the redness in the first 24 hours after the start of the treatment. It may take 48-72 hours to see some actual improvement. There is no fluid collection for I&D noted on the CT scan and I would suspect that one would have developed by this time over the three CT scans. Nor do I see any openings on the skin to obtain a culture. I also do not suspect necrotizing fascitis based on the CT scan and improvement in wbc. I recommend continued iv antibiotics. Patient needs improved pain management. This condition is VERY painful! Would recommend AIR ANTISUBMARINE OFFICER for the time being. Also recommend coating area with vaseline especially the vulvar tissues so they move more easily against each other. Also continue ice It may take up to 72 hours to see clinical improvement. If we don't see this by 72 hrs, will need to consider ID consult and also another CT to see if develops a fluid collection, although, would expect to see by now. We will continue to follow with you. Just noted a temp to 39.1 taken at 1148. Did have a temp to 37.9 yesterday afternoon. History of Present Illness Reason for Consultation: vulvar cellulitis Requesting Physician: Jeffry Attending Physician: Yadira Teran MD History of Present Illness Patient is a 25yowf who was seen in the office by Dr. ramsey on 11/25 and diagnosed with a pretty significant vulvar cellulitis and given po keflex. Unfortunately her symptoms worsened over the day, particularly pain. She presented to the ED and was admitted for IV antibiotics and pain management. Dr. Ramsey describes erythema and swelling of the right labia, mons and forchette. Patient today notes her worst issue is the pain. She cannot sit comfortably, morphine is not touching the pain. She notes no n/v. She has been afebrile. Her wbc count on admission was12.9 and today is 10.7. She is slightly tachy. She has had 3 CT scans in the last 24 hours. The most recent notes reactive right iliac chain nodes, dermal thickening and sub q fluid in the right perineum and mons. She had a left ovarian cyst from 2cm to 5cm. There has been no development of any type of abscess or fluid collection over the three scans. No evidence of necrotizing fascitis. Patient notes the pain has increased and is going into her right groin and hip. She is currently on IV Zosyn, clinda and vanco (MRSA coverage). Allergies Allergy/AdvReac Type Severity Reaction Status Date / Time nickel AdvReac Mild Rash Verified 11/26/20 01:32 Home Medications Medication Instructions Recorded Confirmed Type albuterol sulfate 90 mcg/actuation 1 inh INHALATION QID PRN 11/25/20 11/26/20 History aerosol inhaler cephalexin 500 mg capsule 500 mg PO Q6H 10 Days #40 cap 11/25/20 11/26/20 Rx Patient History Medical History Acute appendicitis Encounter for anatomic survey Evaluate anatomy not seen on prior sonogram Varicella vaccination Surgical History S/P appendectomy S/P surgical removal of pilonidal cyst S/P wisdom tooth extraction Family History Sister Pepqd-Noejzccrs-Aszwq syndrome Grandmother (Maternal) Breast cancer Grandmother (Paternal) Breast cancer Mother Non-Hodgkin lymphoma Social History Smoking Status: Never smoker Second Hand Exposure: No; Do You Dip or Chew Tobacco: No; Tobacco Cessation Education Requested by Patient: No Hx Alcohol Use: Yes Alcohol type: beer Hx Substance Use: No Preferred Language: Vietnamese Communication Ability: Effective Winder Contort Operator Required: No Beliefs That Will Affect Care: None marital status: Single marital status details: Kade Moses (22) [phone] Current Living Situation: Significant Other Current Living Situation Comment: lives with boyfriend current occupational status: 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 the erythema is outlined in blue pen--it is not significantly past this area. However, There is some erythema, slight, that appears to be going into the right groin and up towards hip that may be new. The left glute is swollen but less red than the surrounding tissues. I cannot appreciate any erythema on the posterior buttock. There is blistering of the skin of the buttock, perineum noted. The right labia is firm and hard, quite tender but not fluctuant. There is some slight swelling of the left labia but not nearly to the extent as the right. There is some slight white d/c noted at the introitus. Very tender to touch or manipulation. Results & Data ([facility]) Vital Signs (Past 12 Hours) Vital Signs Temp Pulse Resp BP BP Pulse Ox 11/27/20 07:13 37.0 C 80 18 159/87 H 96 11/27/20 03:39 36.7 C 89 16 101/68 94 PG Care Time/CCT Total # of Minutes Spent Total Time Spent with Patient: Total time spent is greater than 50% in coor dination of care (as documented) at patient's floor/unit and/or counseling patient: Coding Level of Care Code 33929 Inpt Consult Level 2 Diagnoses Cellulitis of labia N76.2 Cellulitis of buttock L03.317
[2020-11-27] MEDS: ACETAMINOPHEN 500 MG TAB PO SCH ×3 (11:32→21:44)
[2020-11-27] MEDS: VANCOMYCIN HCL 1,250 MG in SODIUM CHLORIDE 0.9% 250 ML IV SCH ×2 (11:33→19:43)
[2020-11-27] MEDS ORDERED: NALOXONE HCL 0.4 MG/1 ML VIAL/CARP IV PRN (11:37)
[2020-11-27] MEDS ORDERED: MoRPHine SULFATE PCA 30 MG/30 ML IV PRN (11:37)
[2020-11-27] MEDS: SODIUM CHLORIDE 0.9% 1000ML 1,000 ML IV SCH (12:20)
[2020-11-27] MEDS ORDERED: POTASSIUM CHLORIDE CRTAB 20 MEQ TABCR PO ONE (13:54)
--- NOTE | 2020-11-27 14:16 | Surgery Consultation ---
Date of Consultation November 27, 2020 Assessment & Plan (1) Cellulitis of labia: pt is a 25 year-old female who was admitted to hospital for labial infection, pt feels more pain today, pt had T 39.1 today, now T 37.6, repeat CT scan today- IMPRESSION: 1. Findings of cellulitis are again seen involving the right pelvic/perineal soft tissues as detailed above. This has modestly increased as compared to yesterday. 2. There is no deep soft tissue gas, and no organized fluid collection is seen t o suggest abscess on this unenhanced examination. 3. Mildly enlarged right iliac chain nodes are likely reactive. WBC 12.9 (11/26/2020), today WBC 10.3, IMP: lower pelvis soft tissue cellulitis no abscess or fluid collection on CT scan, no surgery indication now,recommend- continue IV antibiotic, blood and urine culture, consult [facility] ID tomorrow, I agree with OBGYN doctor recommendation, pt should be transferred tertiary care center if pt is not getting better or getting worse in next 6-12 hours, pt agrees with the plan, I answered all questions, will F/U, thanks, Present on Admission?: Yes Supervising Physician Co-Signing Physician Notes Patient seen and examined, chart reviewed, case discussed with Dr. Marie and I agree with her assessment and plan as documented above. Briefly, patient is a healthy 25yo C female wit swollen labia. She was seen by outpatient [employer] for and given Keflex presenting with worsening cellulitis On exam she is afebrile, tachycardic otherwise HD stable, NAD Right labia red, indurated, tender. Right buttock and gluteal cleft tender as well. ?fluctuance in area No crepitus, bullae, abdominal pain, streaking Remainder of exam unremarkable Labs and images reviewed WBC=10.8 Assessment/Plan: -IV Vanc, Clindamycin -Consider repeat imaging to look for drainable collection in the future -Remainder of plan as above History of Present Illness Attending Physician: Yadira Teran MD History of Present Illness Primary Care Provider: Jason Colon PA-C CC: labial infection Shirlene is a 25 yo woman who presented to emergency department for progressive pain and swelling of a right groin infection. On 11/23/20 she noted a nodule on her R labia - which she squeezed and was able to express some discharge. The area became progressively more sore - promoting her to make an appointment with [facility] on 11/25/20. She was diagnosed with a R labial cellulitis (likely originating from an inflamed follicle) and started on a course of Keflex 500mg QID for 10 days. She took two doses before coming to the ED for worsening discomfort. She gave 2 months ago - she has not been sexually active since her delivery. She does shave with a razor in the groin area. On arrival to the ED, her CBC showed mild leukocytosis at 10.8 with neutrophil predominance. CRP was elevated to 27. K low at 3.2. Cat scan of abdomen and pelvis showing cellulitis in R labia extending into perineum and anterior pelvic wall; no drainable fluid collection, no gas in pelvis. Patient was given 1 dose of Ceftriaxone 2g, and started on IV vancomycin and clindamycin. She was given 2 liters of normal saline. I ( Got a call for consult labial infection, I reviewed pt's H/P, labs, CT scans with pt, pt is on PCAnow, pt feels the pain is better since start SHANK RANDER, T 37.6 now, pt denies abdominal pain, no diarrhea, Allergies Allergy/AdvReac Type Severity Reaction Status Date / Time nickel AdvReac Mild Rash Verified 11/26/20 01:32 Home Medications Medication Instructions Recorded Confirmed Type albuterol sulfate 90 mcg/actuation 1 inh INHALATION QID PRN 11/25/20 11/26/20 History aerosol inhaler cephalexin 500 mg capsule 500 mg PO Q6H 10 Days #40 cap 11/25/20 11/26/20 Rx Past Med/Surg History Medical History Acute appendicitis Encounter for anatomic survey Evaluate anatomy not seen on prior sonogram Varicella vaccination Surgical History S/P appendectomy S/P surgical removal of pilonidal cyst S/P wisdom tooth extraction Family History Sister Sxjzt-Aetuultug-Tlhkt syndrome Grandmother (Maternal) Breast cancer Grandmother (Paternal) Breast cancer Mother Non-Hodgkin lymphoma Social History Smoking Status: Never smoker Second Hand Exposure: No; Do You Dip or Chew Tobacco: No; Tobacco Cessation Education Requested by Patient: No Hx Alcohol Use: Yes Alcohol type: beer Hx Substance Use: No Preferred Language: Bahraini Communication Ability: Effective Coagulant Dipper Required: No Beliefs That Will Affect Care: None marital status: Single marital status details: Kade Moses (22) [phone] Current Living Situation: Significant Other Current Living Situation Comment: lives with boyfriend current occupational status: 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[employer] Other Information That Helps Us Care for You: No Feels Safe at Home: Yes Safety Concerns: Feels Safe At This Time Assistive Devices: None Review of Systems Constitutional: + chills Genitourinary: no dysuria no vaginal discharge Allergies Allergy/AdvReac Type Severity Reaction Status Date / Time nickel AdvReac Mild Rash Verified 11/26/20 01:32 Home Medications Medication Instructions Recorded Confirmed Type albuterol sulfate 90 mcg/actuation 1 inh INHALATION QID PRN 11/25/20 11/26/20 History aerosol inhaler cephalexin 500 mg capsule 500 mg PO Q6H 10 Days #40 cap 11/25/20 11/26/20 Rx Patient History Medical History Acute appendicitis Encounter for anatomic survey Evaluate anatomy not seen on prior sonogram Varicella vaccination Surgical History S/P appendectomy S/P surgical removal of pilonidal cyst S/P wisdom tooth extraction Family History Sister Wzxpp-Bojorjfpp-Eatcw syndrome Grandmother (Maternal) Breast cancer Grandmother (Paternal) Breast cancer Mother Non-Hodgkin lymphoma Social History Smoking Status: Never smoker Second Hand Exposure: No; Do You Dip or Chew Tobacco: No; Tobacco Cessation Education Requested by Patient: No Hx Alcohol Use: Yes Alcohol type: beer Hx Substance Use: No Preferred Language: Bahraini Communication Ability: Effective Coagulant Dipper Required: No Beliefs That Will Affect Care: None marital status: Single marital status details: Kade Moses (22) [phone] Current Living Situation: Significant Other Current Living Situation Comment: lives with boyfriend current occupational status: 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[employer] Other Information That Helps Us Care for You: No Feels Safe at Home: Yes Safety Concerns: Feels Safe At This Time Assistive Devices: None Review of Systems Review of Systems: All systems reviewed & are unremarkable except as noted in HPI & below Constitutional: as per Subjective / HPI Eyes: as per Subjective / HPI Ear, Nose, Mouth, Throat: as per Subjective / HPI Respiratory: as per Subjective / HPI Cardiovascular: as per Subjective / HPI Gastrointestinal: as per Subjective / HPI Genitourinary: as per Subjective / HPI She gave 2 months ago Musculoskeletal: as per Subjective / HPI Integumentary: as per Subjective / HPI Neurologic: as per Subjective / HPI Psychiatric: as per Subjective / HPI Endocrine: as per Subjective / HPI Hematologic / Lymphatic: as per Subjective / HPI Physical Exam Constitutional: WD/WN, vitals as above well developed and well nourished Eyes: PERRL, conjunctivae normal, anicteric sclerae ENMT: external ear and nose normal, oropharynx normal Neck: trachea midline, no thyromegaly Respiratory: normal respiratory effort, lungs clear to auscultation normal respiratory effort Cardiovascular: RRR, no murmur, no edema Gastrointestinal (Abdomen): normal bowel sounds, soft, nontender, no hepatosplenomegaly Percussion/Palpation: abdomen soft redness and tenderness with edema at lower pelvis area, no drainage Musculoskeletal: no cyanosis or clubbing, extremities motor strength 5/5 Skin: redness, tenderness and edema on lower pelvis area, Neurologic: awake Psychiatric: Orientation: alert and oriented x 3 Results & Data ([facility]) Vital Signs (Past 12 Hours) Vital Signs Temp Pulse Resp BP BP Pulse Ox 11/27/20 12:31 37.6 C H 88 19 119/73 96 11/27/20 11:48 39.1 C H 107 H 18 130/77 95 11/27/20 07:13 37.0 C 80 18 159/87 H 96 05/09/21 03:39 36.7 C 89 16 101/68 94 Laboratory Results Abnormal lab results 11/27/20 11/27/20 Range/Units 08:22 08:22 RBC 3.82 L (4.2-5.4) M/uL Hgb 11.9 L (12.0-16.0) g/dL Hct 35.3 L (37-47) % MPV 10.8 H (7.4-10.4) fL Neut # (Auto) 7.99 H (1.4-6.5) K/uL Hernando # (Auto) 1.16 H (0.11-0.59) K/uL Immature Gran # (Auto) 0.04 H (0.00-0.02) K/uL Potassium 3.4 L (3.5-5.1) mmol/L Chloride 114 H (98-107) mmol/L BUN/Creatinine Ratio 9.0 L (10-20) Diagnostic Findings CT SCAN OF THE PELVIS WITHOUT IV CONTRAST CLINICAL HISTORY: Worsening induration of the groin. COMPARISON STUDY: Pelvic CT scans dated 11/26/2020. TECHNIQUE: CT scan of the pelvis is performed from the pelvic inlet to the proximal femora. Images are reviewed in the axial, sagittal, and coronal planes. IV contrast was not administered as per the referring clinician. Note that the examination was performed in suboptimal fashion without IV contrast. A dose lowering technique was utilized adhering to the principles of ALARA. CT DOSE: 598.68 mGy.cm FINDINGS: The bladder and uterus are normal as visualized. There is an approximately 5 cm cyst of the left ovary seen on image #79. This has increased in size from yesterday. There is trace free fluid in the left paracolic gutter, new from yesterday. There is evidence of previous appendectomy. Imaged portions of the small bowel and colon are normal in caliber. No intraperitoneal free air is seen in the pelvis. There is no inguinal adenopathy. Mildly enlarged right external iliac chain nodes measure up to 11 mm in short axis. These are likely reactive. The bony pelvis appears intact. The sacroiliac and hip joints are normal. No lytic or blastic lesion is seen. The regional musculature is normal and symmetric. Again seen is dermal thickening with infiltration and subcutaneous fluid in the right perineal soft tissues, the bilateral labia (right greater than left), the right groin, the lower pelvis, and the right upper thigh. This has modestly increased as compared to yesterday's examination. No deep soft tissue gas is identified. No organized/drainable fluid collection is seen to suggest abscess on this unenhanced examination. IMPRESSION: 1. Findings of cellulitis are again seen involving the right pelvic/perineal soft tissues as detailed above. This has modestly increased as compared to yesterday. 2. There is no deep soft tissue gas, and no organized fluid collection is seen to suggest abscess on this unenhanced examination. 3. Mildly enlarged right iliac chain nodes are likely reactive. 4. There is a 5 cm simple cystic lesion identified in the left ovary. This has increased in size from yesterday and there is trace fluid in the adjacent paracolic gutter. This may represent a rupturing ovarian cyst. If there is clinical concern for ovarian torsion a pelvic ultrasound should be considered. 5. Additional findings as above. CT OF THE PELVIS WITHOUT CONTRAST CLINICAL HISTORY: Expanding cellulitis, increasing pain COMPARISON STUDY: CT of the abdomen and pelvis November 2020 at 2:40 AM. TECHNIQUE: Axial images of the pelvis were obtained without IV contrast. Sagittal and coronal reconstructions were viewed. Automated exposure control was utilized for the study. A dose lowering technique was utilized adhering to the principles of ALARA. FINDINGS: Contrast within the ureters and bladder is from recent contrast- enhanced CT. A cystic lesion within the left ovary is better depicted on prior contrast enhanced CT. This could reflect a dominant follicle or a cyst. Prominent right external iliac lymph node measures 9 mm in short axis diameter and is likely reactive. Prominent right inguinal lymph nodes are likely reactive. No soft tissue gas is present. There is no fluid collection. There is skin thickening with infiltration and fluid within the right aspect of the perineum, bilateral labia, right greater than left, as well as the right groin and lower pelvis. Extent has increased since exam performed earlier today. Visualized skeletal structures are unremarkable. The appendix is surgically absent. The caliber of visualized small and large bowel are normal. IMPRESSION: 1. Mild increase in extent of cellulitis, including skin thickening and moderate inflammation of the right perineum, bilateral labia, right greater the left, right groin and subcutaneous tissues of the lower pelvis. No soft tissue gas. No fluid collection. 2. Prominent iliac and inguinal lymph nodes which are likely reactive. CT OF THE ABDOMEN AND PELVIS WITH CONTRAST CLINICAL HISTORY: Right pelvic/labial infection. COMPARISON STUDY: CT of the abdomen and pelvis November 20, 2016. TECHNIQUE: Following IV administration of 90 mL of Optiray, axial images of the abdomen and pelvis were obtained from the lung bases to the proximal femurs. Images were reviewed in the axial, sagittal, and coronal planes. IV contrast was administered without complication. Automated exposure control was utilized for the study. A dose lowering technique was utilized adhering to the principles of ALARA. CT DOSE: 508.25 mGy.cm FINDINGS: No pneumatosis, free air or portal venous gas is present there is mild splenomegaly. Mild hepatomegaly is also noted. No biliary or pancreatic ductal dilatation is present. Minimal gallbladder wall thickening is a nonspecific finding. There is no hydronephrosis. The appendix is surgically absent. 2.6 cm cyst or dominant follicle within the left ovary is noted. The caliber and wall thickness of small and large bowel are normal. Note is made of moderate infiltration within the right labia which extends into the right groin and lower pelvis. There is no soft tissue gas. There is no fluid collection is suggest an abscess. Major vasculature is patent. IMPRESSION: 1. Moderate infiltration within the right labia, right groin and subcutaneous tissues of the lower pelvis. This suggests cellulitis. No abscess. No soft tissue gas. 2. 2.6 cm cyst or dominant follicle within the left ovary. 3. No bowel obstruction. No bowel wall thickening.
--- NOTE | 2020-11-27 17:30 | Gynecologic Progress Note ---
Date of Service November 27, 2020 Assessment & Plan (1) Cellulitis of labia: Admission and Anticipated Discharge Date Admission Date: November 26, 2020 Area does not look significantly worse since last exam. However, temp spike to 39.1 is concerning. Continue IV antibiotics. Patient noted that if she has another large temp spike in the next 12 hours, he would recommend transfer to tertiary care center. Although this is not noted in his note, I would concur with this. If she continues to spike, may have an unusual infective agent or truly has necrotizing fasciitis and will likely need surgical intervention which we cannot provide here. We would not want to delay as rapid intervention curtis to treatment. Patient expresses understanding of this. 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 Current temp is 37.2 with Tmax 39.1. Eating a regular diet. Physical Exam Constitutional: WD/WN, vitals as above Psychiatric: A+Ox3, euthymic affect Genitourinary: area looks and palpates about the same but I think the erythema is a little less pronounced. Mons and right labia still very firm, but I cannot appreciate fluctuance or crepitus. Results & Data ([facility]) Vital Signs (Past 12 Hours) Vital Signs Temp Pulse Resp BP BP Pulse Ox 11/27/20 16:36 37.2 C 82 18 96/63 L 99 11/27/20 15:31 37.1 C 89 19 98/61 L 98 11/27/20 14:34 37.2 C 97 H 18 114/68 97 11/27/20 12:31 37.6 C H 88 19 119/73 96 11/27/20 11:48 39.1 C H 107 H 18 130/77 95 11/27/20 07:13 37.0 C 80 18 159/87 H 96 PG Care Time/CCT Total # of Minutes Spent Total Time Spent with Patient: Total time spent is greater than 50% in coordination of care (as documented) at patient's floor/unit and/or counseling patient: Coding Level of Care Code None Diagnoses Cellulitis of labia N76.2
[2020-11-28] MEDS: VANCOMYCIN HCL 1,250 MG in SODIUM CHLORIDE 0.9% 250 ML IV SCH ×3 (01:25→21:57)
[2020-11-28] MEDS: CLINDAMYCIN 900 MG in DEXTROSE 5% 50 ML IV SCH ×3 (04:19→20:32)
[2020-11-28] MEDS: PIPERACILLIN/TAZOBACTAM 4.5 GM in DEXTROSE 5% 100 ML IV SCH ×3 (04:47→20:32)
[2020-11-28] MEDS: ACETAMINOPHEN 500 MG TAB PO SCH (05:56)
--- NOTE | 2020-11-28 07:53 | Gynecologic Progress Note ---
Date of Service November 28, 2020 Assessment & Plan (1) Cellulitis of labia: (2) Cellulitis of buttock: Admission and Anticipated Discharge Date Admission Date: November 26, 2020 Patient has been on IV antibiotics now for just over 48 hours with reasonable coverage for cellulitis. However, not improving. CBC pending. Temp spike to 39.1 yesterday about noon. Although I thought things looked stable last night, I am now quite concerned given the increased spread of the erythema and swelling and now the discoloration on the right gluteal area. Given this, my concern for necrotizing fasciitis is significantly increased and I recommend immediate transfer to [facility] for evaluation and possible surgical intervention. I explained this situation to the patient who expresses understanding and agrees with my assessment, consenting to transfer. Dr. Perales is on service today and he was notified about our concern and recommendation. I am going off call and Dr. Teresa coming on. WE examined the patient together this am. She will assume care of the patient and assist in the transfer. Subjective Patient is resting in bed. Continues to note discomfort. She notes that the swelling is more and moving into the left side. She continues to note she has pain in the right hip. She has not had a temp since yesterday early afternoon. cbc currently pending. Physical Exam Constitutional: WD/WN, vitals as above Psychiatric: A+Ox3, euthymic affect Genitourinary: Increased swelling noted in the area and spreading into the left labia. More erythema noted in the left labia. All areas continue to be firm, not fluctuant and no appreciable crepitus noted. The erythema has not significantly spread beyond the outlined areas on the mons but there is still some slight erythema in the right groin. ON the medial glute there is some blistering noted, that I noted yesterday. However, there is some darker discoloration, blue-purple, noted in the area as well. This area is small about 5mm but very concerning. the entire area is exquisitely tender to palpation. Results & Data ([facility]) Vital Signs (Past 12 Hours) Vital Signs Temp Pulse Pulse Resp BP BP Pulse Ox 11/28/20 07:30 37.0 C 88 16 111/71 99 11/28/20 03:31 36.8 C 80 16 106/70 99 11/28/20 00:09 68 11/27/20 23:03 36.8 C 64 16 95/59 L 95 PG Care Time/CCT Total # of Minutes Spent Total Time Spent with Patient: Total time spent is greater than 50% in coordination of care (as documented) at patient's floor/unit and/or counseling patient: Coding Level of Care Code None Diagnoses Cellulitis of labia N76.2 Cellulitis of buttock L03.317
[2020-11-28] MEDS: IBUPROFEN 800 MG TAB PO SCH ×3 (08:02→17:48)
[2020-11-28] MEDS: ENOXAPARIN INJ 40 MG/0.4 ML SYR SQ SCH (08:03)
--- NOTE | 2020-11-28 08:24 | Gynecologic Progress Note ---
Date of Service November 28, 2020 Assessment & Plan Admission and Anticipated Discharge Date Admission Date: November 26, 2020 Subjective In our sign-off this morning, Dr Anthony and I went to examine/evaluate the patient together. The vulvar cellulitis appears significantly worse, with now bilateral vulvar swelling, tracking up into the right hip. There are some blisters and darker tissue in the right perineum/buttocks area. Given that the patient has been on antibiotics for 48 hours with no improvement and now is showing a worsening on exam. Dr Anthony is speaking with general surgery here at [facility] right now. I have called the transfer centers at both [place] and [facility] for advice and to consider transfer. Spoke with Dr Dietz (urogyn) at [place] - who recommends that patient be taken to OR right now at our facility to explore/debride. Given concern for nec fasc, not a candidate for transfer. Also discussed with Dr Winsome Pascal at [facility], who recommended repeat CT scan, as would not recommend OR unless findings of gas on CT or fevers. I spoke with Dr Souza (general surg), who has just examined the patient and he will be taking her to OR now given clinical concern for nec fasc. Results & Data ([facility]) Vital Signs (Past 12 Hours) Vital Signs Temp Pulse Pulse Resp BP BP Pulse Ox 11/28/20 07:30 37.0 C 88 16 111/71 99 11/28/20 03:31 36.8 C 80 16 106/70 99 11/28/20 00:09 68 11/27/20 23:03 36.8 C 64 16 95/59 L 95
--- NOTE | 2020-11-28 08:26 | Post Operative Brief Note ---
PG Immediate Post Op with CF Date of Surgery November 28, 2020 I identified the patient and participated in the time-out.: Yes Procedure see dictation Surgeon Vishal Easley MD, FACS [employer]el Mechan[employer] Chiara Herrera Estimated Blood Loss 20 Findings Consistent with Post-Op Diagnosis
[2020-11-28] MEDS ORDERED: ACETAMINOPHEN 1,000 MG/100 ML VIAL IV ONE (08:27)
[2020-11-28 08:49] LABS: Basophils # (auto) 0.01 K/uL (0-0.2); Basophils % (auto) 0.1 %; Eosinophils # (auto) 0.25 K/uL (0-0.5); Eosinophils % (auto) 2.3 %; Hematocrit (blood only) 32.9 % (37-47); Hemoglobin 11.4 g/dL (12.0-16.0); Immature Granulocytes # (auto) 0.05 K/uL (0.00-0.02); Immature Granulocytes % (auto) 0.5 %; Lymphocytes # (auto) 1.35 K/uL (1.2-3.4); Lymphocytes % (auto) 12.6 %; Mean Corpuscular Hemoglobin 31.4 pg (25-34); Mean Corpuscular Hgb Conc 34.7 g/dL (32-36); Mean Corpuscular Volume 90.6 fL (80-100); Mean Platelet Volume 10.5 fL (7.4-10.4); Monocytes % (auto) 11.2 %; Neutrophils # (auto) 7.88 K/uL (1.4-6.5); Neutrophils % (auto) 73.3 %; Platelet Count 148 K/uL (130-400); RDW Coefficient of Variation 13.2 % (11.5-14.5); RDW Standard Deviation 44.1 fL (36.4-46.3); Red Blood Count 3.63 M/uL (4.2-5.4); White Blood Count 10.74 K/uL (4.8-10.8)
--- NOTE | 2020-11-28 09:16 | Progress Note ---
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 Findings of cellulitis are again seen involving the right pelvic/perineal soft tissues as detailed above. This has modestly increased as compared to yesterday. 2. There is no deep soft tissue gas, and no organized fluid collection is seen to suggest abscess on this unenhanced examination. 3. Mildly enlarged right iliac chain nodes are likely reactive. WBC 12.9 (11/26/2020), today WBC 10.3, IMP: lower pelvis soft tissue cellulitis no abscess or fluid collection on CT scan, no surgery indication now,recommend- continue IV antibiotic, blood and urine culture, consult [facility] tomorrow, I agree with OBGYN doctor recommendation, pt should be transferred tertiary care center if pt is not getting better or getting worse in next 6-12 hours, pt agr ees with the plan, I answered all questions, will F/U, thanks, 11/28/2020 9:17AM pelvis area infection - not better, most likely form abscess on right buttock, I recommend to do I/D pelvis area infection( right buttock) abscess, D/W benefits, risks and alternatives of the surgery, the risks - infection, bleeding, sepsis, recurrence, pt understood, she agrees with the surgery, I answered all questions, D/W Dr. Teresa who will help me at OR. Admission and Anticipated Discharge Date Admission Date: November 26, 2020 Supervising Physician Co-Signing Physician Notes Resident Physician Supervision Note: I independently interviewed and examined the patient and verified the curtis history and physical, reviewed labs and image studies and agree with resident Dr. Mendiola findings and care plan. Subjective In our sign-off this morning, Dr Anthony and I went to examine/evaluate the patient together. The vulvar cellulitis appears significantly worse, with now bilateral vulvar swelling, tracking up into the right hip. There are some blisters and darker tissue in the right perineum/buttocks area. Given that the patient has been on antibiotics for 48 hours with no improvement and now is showing a worsening on exam. Dr Anthony is speaking with general surgery here at [facility] right now. I have called the transfer centers at both [facility] and [facility] for advice and to consider transfer. Spoke with Dr Dietz (urogyn) at [facility] - who recommends that patient be taken to OR right now at our facility to explore/debride. Given concern for nec fasc, not a candidate for transfer. Also discussed with Dr Winsome Pascal at [facility], who recommended repeat CT scan, as would not recommend OR unless findings of gas on CT or fevers. I spoke with Dr Souza (general surg), who has just examined the patient and he will be taking her to OR now given clinical concern for nec fasc. Review of Systems Constitutional: as per Subjective / HPI Eyes: as per Subjective / HPI Ear, Nose, Mouth, Throat: as per Subjective / HPI Respiratory: as per Subjective / HPI Cardiovascular: as per Subjective / HPI Gastrointestinal: as per Subjective / HPI Genitourinary: as per Subjective / HPI She gave 2 months ago Musculoskeletal: as per Subjective / HPI Integumentary: as per Subjective / HPI Neurologic: as per Subjective / HPI Psychiatric: as per Subjective / HPI Endocrine: as per Subjective / HPI Hematologic / Lymphatic: as per Subjective / HPI Physical Exam Constitutional: WD/WN, vitals as above well developed and well nourished Eyes: PERRL, conjunctivae normal, anicteric sclerae ENMT: external ear and nose normal, oropharynx normal Neck: trachea midline, no thyromegaly Respiratory: normal respiratory effort, lungs clear to auscultation normal respiratory effort Cardiovascular: RRR, no murmur, no edema Gastrointestinal (Abdomen): normal bowel sounds, soft, nontender, no hepatospl enomegaly Percussion/Palpation: abdomen soft still swelling on lower pelvis area, some bulging on right buttock area, tenderness redness, no drainage, Musculoskeletal: no cyanosis or clubbing, extremities motor strength 5/5 Neurologic: awake Psychiatric: Orientation: alert and oriented x 3 Results & Data ([facility]) Vital Signs (Past 12 Hours) Vital Signs Temp Pulse Pulse Resp BP BP Pulse Ox 11/28/20 07:30 37.0 C 88 16 111/71 99 11/28/20 03:31 36.8 C 80 16 106/70 99 11/28/20 00:09 68 11/27/20 23:03 36.8 C 64 16 95/59 L 95
[2020-11-28] MEDS ORDERED: LIDOCAINE 1% LOCAL 20 ML VIAL ONE (09:17)
[2020-11-28] MEDS ORDERED: BUPIVACAINE 0.5 % 5 MG/1 ML MPF 30ML VIAL ONE (09:17)
[2020-11-28] MEDS ORDERED: MIDAZOLAM HCL 1 MG/ML 2ML VIAL ONE (09:18)
[2020-11-28] MEDS ORDERED: fentaNYL citrate 100 MCG/2 ML VIAL ONE ×3 (09:18→10:44)
[2020-11-28] MEDS ORDERED: PROPOFOL IV EMULSION 10 MG/ML 20 ML VIAL IV ONE (09:27)
[2020-11-28] MEDS ORDERED: ONDANSETRON INJ 2 MG/ML 2 ML VIAL ONE (09:27)
--- NOTE | 2020-11-28 09:28 | History & Physical Bridge Note ---
Date of Service November 28, 2020 History & Physical Bridge Note I have examined the patient, reviewed the History & Physical and in the interval since the performance of the History & Physical I have noted the following changes of clinical significance: no changes noted Supervising Physician Co-Signing Physician Notes Resident Physician Supervision Note: I independently interviewed and examined the patient and verified the curtis history and physical, reviewed labs and image studies and agree with resident Dr. Mendiola findings and care plan.
[2020-11-28] MEDS ORDERED: LIDOCAINE 2% 2 ML VIAL/AMP(20MG/ML) INFIL ONE (09:30)
[2020-11-28 09:38] LABS: Calcium 8.4 mg/dl (8.5-10.1); Creatinine Clr Calc Pharmacy 89.1 ml/min; Est GFR (African American) 94.7; Est GFR (Non-African American) 81.7; Potassium 2.7 mmol/L (3.5-5.1)
--- NOTE | 2020-11-28 09:39 | Anesthesiology Consultation ---
Date of Service November 28, 2020 Assessment & Plan Chart Review Chart Review: Acceptable Risk for Surgery Consults Requested none History Surgery Operation Date: 11/28/20 16:25 Proposed Procedures p Incision and Drainage General - Kartik Souza MD s Marsupialization Bartholin Cyst - Kenyetta Anthony MD, FACOG Height/Weight Height: 5 ft 1 in Weight: 86.1 kg Allergies Allergy/AdvReac Type Severity Reaction Status Date / Time nickel AdvReac Mild Rash Verified 11/26/20 01:32 Medications Home Medications Medication Instructions Recorded Confirmed Last Taken albuterol sulfate 90 mcg/actuation 1 inh INHALATION QID PRN 11/25/20 11/26/20 Unknown aerosol inhaler cephalexin 500 mg capsule 500 mg PO Q6H 10 Days #40 cap 11/25/20 11/26/20 11/25/20 Active Medications Generic Name Dose Route Start Last Admin Trade Name Freq PRN Reason Stop Dose Admin Enoxaparin Sodium 40 mg 11/26/20 09:00 11/28/20 08:03 Enoxaparin Inj 40 Mg/0.4 Ml Syr SQ 12/26/20 08:59 Not Given QAM INES Gabapentin 300 mg 11/26/20 17:02 11/27/20 02:03 Gabapentin 300 Mg Cap PO 12/26/20 17:14 300 mg Q8H PRN Administration genital pain Clindamycin Phosphate 900 mg/ 56 mls @ 112 mls/hr 11/26/20 12:00 11/28/20 04:58 Dextrose IV 12/03/20 11:59 Infused Q8H INES Infusion Piperacillin Sod/Tazobactam 120 mls @ 30 mls/hr 11/26/20 12:00 11/28/20 04:47 Sod 4.5 gm/ Dextrose IV 12/06/20 11:59 30 mls/hr Q8H INES Administration Protocol Vancomycin HCl 1,250 mg/ 275 mls @ 190 mls/hr 11/27/20 10:30 11/28/20 03:15 Sodium Chloride IV 12/03/20 10:29 Infused Q8H INES Infusion Sodium Chloride 1,000 mls @ 15 mls/hr 11/27/20 11:45 11/27/20 12:20 Nss 1000ml IV 12/11/20 11:38 15 mls/hr .Q24H INES Administration Ibuprofen 800 mg 11/27/20 12:00 11/28/20 08:02 Ibuprofen 800 Mg Tab PO 12/27/20 11:59 800 mg TIDM INES Administration Morphine Sulfate 30 mg 11/27/20 11:37 11/27/20 12:19 Morphine Sulfate Wool Spotter 30 Mg/30 Ml IV 12/11/20 11:36 30 mg PRN PRN Administration WEIGHER AND MIXER Pain Titration Protocol Ondansetron HCl 4 mg 11/26/20 06:16 11/26/20 12:19 Ondansetron Inj 2 Mg/Ml 2 Ml Vial IV 12/26/20 06:15 4 mg Q6H PRN Administration Nausea Past Medical History Medical History Acute appendicitis Encounter for anatomic survey Evaluate anatomy not seen on prior sonogram Varicella vaccination Past Family History Family History Sister Xkdol-Uiriesbhk-Aozru syndrome Grandmother (Maternal) Breast cancer Grandmother (Paternal) Breast cancer Mother Non-Hodgkin lymphoma Past Surgical History Surgical History S/P appendectomy S/P surgical removal of pilonidal cyst S/P wisdom tooth extraction Social History Smoking Status: Never smoker Do You Dip or Chew Tobacco: No Hx Alcohol Use: Yes Alcohol type: beer alcohol intake frequency: holidays/special occasions only Hx Substance Use: No substance use type: does not use Physical Exam Vital Signs Last Vital Signs Temp 37.0 C 11/28/20 07:30 Pulse 88 11/28/20 07:30 Resp 16 11/28/20 07:30 BP 111/71 11/28/20 07:30 Pulse Ox 99 11/28/20 07:30 Testing Laboratory Results 11/28/20 08:34 11/28/20 08:34
[2020-11-28] MEDS ORDERED: PROMETHAZINE HCL 12.5 MG in SODIUM CHLORIDE 0.9% 50 ML IV PRN (09:54)
[2020-11-28] MEDS ORDERED: ePHEDrine sulfate 50 MG/ML AMP IV PRN (09:54)
[2020-11-28] MEDS ORDERED: METOCLOPRAMIDE HCL INJ 5 MG/ML 2 ML VIAL IV PRN (09:54)
[2020-11-28] MEDS ORDERED: fentaNYL citrate 100 MCG/2 ML VIAL IV PRN (09:54)
[2020-11-28] MEDS ORDERED: ATROPINE SULFATE 0.1 MG/ML 10ML SYR IV PRN (09:54)
[2020-11-28] MEDS ORDERED: ONDANSETRON INJ 2 MG/ML 2 ML VIAL IV PRN (09:54)
[2020-11-28] MEDS ORDERED: HYDROmorphone INJ 2 MG/ML SYR/VIAL IV PRN (09:54)
--- NOTE | 2020-11-28 09:59 | Gynecologic Progress Note ---
Date of Service November 28, 2020 Assessment & Plan Admission and Anticipated Discharge Date Admission Date: November 26, [address] Souza has seen patient in preop - consented patient for surgery. I saw patient also, tried to answer questions to the best of my ability from a HOUSE CARPENTER HELPER perspective, let her know I will go to OR to help Dr Souza with the case and she is agreeable. Patient on her way to OR. Results & Data ([facility]) Vital Signs (Past 12 Hours) Vital Signs Temp Pulse Pulse Resp BP BP Pulse Ox 11/28/20 09:53 37.0 C 85 18 125/73 94 11/28/20 07:30 37.0 C 88 16 111/71 99 11/28/20 03:31 36.8 C 80 16 106/70 99 11/28/20 00:09 68 11/27/20 23:03 36.8 C 64 16 95/59 L 95
[2020-11-28] MEDS ORDERED: VANCOMYCIN TROUGH ONE (10:00)
[2020-11-28] MEDS ORDERED: CLINDAMYCIN PHOS 300 MG/2 ML VIAL ONE (10:12)
--- NOTE | 2020-11-28 10:34 | Post Operative Brief Note ---
Immediate Post Op Note v1 Date of Surgery November 28, 2020 Pre & Post Diagnosis Operation Date: 11/28/20 16:25 Pre-Op Diagnosis: Cellulitis of labia, right buttock abscess Post-Op Diagnosis: Cellulitis of labia, right buttock abscess I identified the patient and participated in the time-out.: Yes Procedure Operation Date: 11/28/20 16:25 Actual Procedures p Incision and Drainage Right Buttock Abscess - Kartik Souza MD Surgeon Kartik Souza MD Special Officer DRBrii Katie Estimated Blood Loss 10 Findings Consistent with Post-Op Diagnosis large abscess on right buttock, Fluids 250ml Specimens wound culture Drains Castano Catheter Anesthesia Type General Complications none Disposition Accompanied Patient To Recovery: Yes Disposition: Recovery Room Overlapping Procedure I was immediately available: during the entire case.
[2020-11-28] MEDS ORDERED: DEXAMETHASONE SOD INJ 4 MG/ML VIAL ONE (10:57)
[2020-11-28] MEDS ORDERED: cephALEXin 500 MG CAP PO SCH (11:41)
[2020-11-28] MEDS ORDERED: ALBUTEROL HFA 8 GM INHALER INH PRN (11:41)
[2020-11-28] MEDS: POTASSIUM CHLORIDE / WTR 10 MEQ/100 ML PLCT IV SCH ×2 (11:58→13:46)
--- NOTE | 2020-11-28 12:52 | Hospitalist Progress Note ---
Date of Service November 28, 2020 Assessment & Plan (1) Cellulitis of labia: Shirlene Oliva is a 25y/o with no significant past medical history who presented to the ER for concerns of a worsening groin infection, subsequently found to have R labial cellulitis and an abscess on surgical expl oration. She is hemodynamically stable. 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 following: Out of concern for necrotizing cellulitis, emergent surgical exploration performed 11/28 -- no evidence of nec fasc, but a large R buttock abscess was noted -- s/p I&D - continue vancomycin, clindamycin, zosyn [ today = day 3 ] - Await cx from abscess -- consider narrowing when resulted - BCX running (drawn after 24+ hrs of abx) - NGTD x 24hr - Ibuprofen 800mg, and Tylenol 1000mg Q8h scheduled Hypokalemia: - K of 3.2 on admission --> 2.7 post-op, repletion ordered - continue to monitor daily and replete as indicated - BMP qAM Dispo: MS/Tele Diet: Regular DVT ppx: Lovenox CODE STATUS: Full code Admission and Anticipated Discharge Date Admission Date: November 26, 2020 Supervising Physician Co-Signing Physician Notes I personally examined the patient and verified all curtis points of history and exam, discussed case, and agree with decision making with Dr Wilcox feeling better post op pain better off hand cigar maker vitals noted nad heent nc at mmm breathing unlabored no accessory muscles good effort labial/buttocks cellulitis w abscess -- much improved postop. continue current care and current abx. otherwise as above Subjective Pain continues into this AM - not as bad as last night but certainly still noticeable. She denies any chills, night sweats, rigors. No major loss of appetite. No nausea or vomiting. Denies shortness of breath. Review of Systems Review of Systems: As per HPI Physical Exam Physical Exam: General: 25-year-old female who is lying back in her hospital bed, fully alert and oriented. She is mildly diaphoretic. Mild distress. HEENT: NCAT. Eyes - Sclera are white, anicteric, and without injection. PERRL. EOMs display full ROM bilaterally. Cardiac: Normal rate and regular rhythm; S1 and S2 present with no murmurs, rubs, or gallops. Pulmonary: Good respiratory effort with symmetric expansion of the chest. No use of accessory muscles. Lungs were clear to auscultation bilaterally with no crackles or wheezes. Abdominal: Normoactive bowel sounds. Abdomen was soft, nondistended, and non- tender to palpation. : Patient's nurse was present for the entirety of the examination. There is diffuse erythema and induration lateral to the right labia, extending into the thigh fold. This does extend across midline near the left labia. There is also increased TTP below the right gluteus. No crepitus. Extremities: Upper and lower extremities are warm and well perfused. Radial and dorsalis pedis pulses were 2+ b/l. Capillary refill assessed in UE was < 3 sec. Results & Data Results & Data ([facility]) Vital Signs (Past 12 Hours) Vital Signs Temp Pulse Resp BP BP Pulse Ox 11/28/20 12:12 36.7 C 87 18 118/77 97 11/28/20 11:30 85 18 124/76 95 11/28/20 11:20 37.1 C 85 18 120/76 95 11/28/20 11:10 83 14 121/70 94 11/28/20 11:00 80 14 111/56 L 94 11/28/20 10:50 86 14 109/76 94 11/28/20 10:49 36.3 C L 102 H 14 113/60 93 11/28/20 09:53 37.0 C 85 18 125/73 94 11/28/20 07:30 37.0 C 88 16 111/71 99 11/28/20 03:31 36.8 C 80 16 106/70 99 Resident Activity Tracking Resident Involvement: Resident Care Provided Care Provided: Adult Hospital Medicine
--- NOTE | 2020-11-28 13:28 | Anesthesiology Progress Note ---
Date of Service November 28, 2020 Anesthesia Post Procedure Vital Signs Vital Signs: Temp Pulse Pulse Resp BP BP Pulse Ox 11/28/20 12:12 36.7 C 87 18 118/77 97 11/28/20 11:30 85 18 124/76 95 11/28/20 11:20 37.1 C 85 18 120/76 95 11/28/20 11:10 83 14 121/70 94 11/28/20 11:00 80 14 111/56 L 94 11/28/20 10:50 86 14 109/76 94 11/28/20 10:49 36.3 C L 102 H 14 113/60 93 11/28/20 09:53 37.0 C 85 18 125/73 94 11/28/20 07:30 37.0 C 88 16 111/71 99 11/28/20 03:31 36.8 C 80 16 106/70 99 11/28/20 00:09 68 11/27/20 23:03 36.8 C 64 16 95/59 L 95 11/27/20 18:33 37.1 C 79 18 108/72 99 11/27/20 16:36 37.2 C 82 18 96/63 L 99 11/27/20 15:31 37.1 C 89 19 98/61 L 98 11/27/20 14:34 37.2 C 97 H 18 114/68 97 Pain Intensity Right Groin: Pain Intensity: 2 Transfer of Care Handoff Completed per policy Notes Mental Status: alert / awake / arousable and participated in evaluation Patient Amnestic to Procedure: Yes Nausea / Vomiting: adequately controlled Pain: adequately controlled Airway Patency, RR, SpO2: stable & adequate BP & HR: stable & adequate Hydration State: stable & adequate Anesthetic Complications: no major complications apparent
[2020-11-28] MEDS: SODIUM CHLORIDE 0.9% 1000ML 1,000 ML IV SCH (13:47)
--- NOTE | 2020-11-28 14:15 | Pharmacy Report ---
Pharmacy Abx Dose Short Note - Date of Service November 28, 2020 - Assessment & Plan Assessment 25 year old F receiving IV Vancomycin, Zosyn, and Clindamycin (not a consult) for treatment of R labial/groin cellulitis; failed outpatient Keflex Day # 3 of antimicrobial therapy. * Vanc level obtained today, 13.4mcg/mL was slightly subtherapeutic but drawn slightly late due to patient being in OR. Suspect that level would have been therapeutic if drawn on time. Plan Vancomycin * Trough level of 13.4 mcg/mL is near therapeutic * Continue dose of 1250mg mg IV every 8 hours * Goal trough level: ~15 mcg/mL * No further levels have been ordered at this time. Will consider additional levels if patient continues on therapy. Pharmacy will continue to follow and will adjust dose/frequency as necessary. Thank you.
[2020-11-28] MEDS: ADVANCED PROBIOTIC 1250 MG CAPSULE PO SCH (17:48)
[2020-11-28] MEDS ORDERED: BENZOCAINE 20% AER SPR 82.5 GM CAN EXT PRN (19:40)
[2020-11-28] MEDS: ONDANSETRON INJ 2 MG/ML 2 ML VIAL IV PRN (19:59)
--- NOTE | 2020-11-28 22:18 | Operative Report (OR) ---
DATE OF OPERATION: 11/28/2020 PREOPERATIVE DIAGNOSIS: Right buttock abscess. POSTOPERATIVE DIAGNOSIS: Right buttock abscess. OPERATION: Incision and drainage of the right buttock abscess. SURGEON: Kartik Souza MD SENIOR PHP DEVELOPER: Dr. Rosalie Teresa. ANESTHESIA: General. ESTIMATED BLOOD LOSS: About 5 mL. FINDINGS: Large right buttock abscess. Wound culture sent. COMPLICATIONS: None. INDICATIONS FOR THE PROCEDURE: This is a 25-year-old female with right buttock infection and patient admitted to hospital for treatment with IV antibiotic. However, the patient's symptoms were getting worse. I recommended to take her to the OR and do the incision and drainage, right buttock abscess. I did talk to the patient about the benefit, the risk, alternate procedure. I indicated the risks may include but not limited such as bleeding, infection, sepsis, multiple organ failure, recurrence. The patient understands. She signed informed consent and I answered all questions and detailed procedure. DETAILS OF PROCEDURE: After identifying the patient and verifying the procedure, we brought the patient and put the patient in the supine position on the OR table. The patient received SCD on bilateral legs to prevent DVT. Also, patient received 900 mg clindamycin IV for prophylactic antibiotic. The patient received general anesthesia without difficulty. Then, we put the patient on the lithotomy position and the patient's low pelvic area was prepped and draped in routine sterile fashion. After timeout, I made the incision on the right buttock abscess area and immediately lot of pus came out. We did send a wound culture in the larger cavity. Once we cleaned up, we used normal saline and flushed the cavity. Then I used half-inch Kerlix with bacitracin packing the incision. Hemostasis was obtained. Then we injected local anesthesia by using 1% lidocaine mixed with 0.5% Marcaine around the incision. The incision deep to subcutaneous layer, also I did not see any tight tissue, only the pus, infection. Then, we put the dressing on. The patient tolerated the procedure well. All instrument, needle and sponge count were correct x2 at the end of the case. The patient transferred to recovery room in stable condition. After the procedure, I did talk to the patient about the OR finding and the procedure we did, she understands. I attest to the content of the Intraoperative Record and any orders documented therein. Any exception s are noted below.
--- NOTE | 2020-11-28 23:19 | Gynecologic Progress Note ---
Date of Service November 28, 2020 Assessment & Plan Admission and Anticipated Discharge Date Admission Date: November 26, 2020 Subjective Late note - unable to document at time of patient visit due to other patient care responsibilities. I checked on patient at approximately 6pm. She was sitting in bed, looking overall much better and more comfortable. She stated that she feels much better and was able to get up and walk around without pain. She had a bowel movement a short time before my visit and the dressing was changed at that time. She is eating/drinking ok and has an appetite. Has not needed the morphine RAYON CONER since this morning. She is very happy that she is feeling much better. Afebrile since 11/27 noon. Continue clinda, zosyn, vanco. Labs in AM. Results & Data ([facility]) Vital Signs (Past 12 Hours) Vital Signs Temp Pulse Resp BP BP Pulse Ox 11/28/20 23:09 36.9 C 59 L 18 117/63 96 11/28/20 19:38 36.5 C 62 18 113/66 97 11/28/20 15:34 37.1 C 77 18 116/75 96 11/28/20 12:12 36.7 C 87 18 118/77 97 11/28/20 11:30 85 18 124/76 95 11/28/20 11:20 37.1 C 85 18 120/76 95
[2020-11-29] MEDS: HYDROmorphone INJ 0.5 MG/0.5 ML SYR IV PRN ×2 (02:48→12:10)
[2020-11-29] MEDS: CLINDAMYCIN 900 MG in DEXTROSE 5% 50 ML IV SCH ×2 (03:47→12:30)
[2020-11-29] MEDS: PIPERACILLIN/TAZOBACTAM 4.5 GM in DEXTROSE 5% 100 ML IV SCH ×3 (03:47→20:09)
[2020-11-29] MEDS: VANCOMYCIN HCL 1,250 MG in SODIUM CHLORIDE 0.9% 250 ML IV SCH ×3 (05:28→22:09)
[2020-11-29 06:33] LABS: Hematocrit (blood only) 30.2 % (37-47); Hemoglobin 10.4 g/dL (12.0-16.0); Immature Granulocytes # (auto) 0.05 K/uL (0.00-0.02); Immature Granulocytes % (auto) 0.4 %; Lymphocytes # (auto) 1.12 K/uL (1.2-3.4); Lymphocytes % (auto) 8.9 %; Mean Corpuscular Hemoglobin 31.3 pg (25-34); Mean Corpuscular Hgb Conc 34.4 g/dL (32-36); Monocytes # (auto) 0.76 K/uL (0.11-0.59); Monocytes % (auto) 6.1 %; Neutrophils % (auto) 84.6 %; Platelet Count 173 K/uL (130-400); RDW Coefficient of Variation 13.4 % (11.5-14.5); RDW Standard Deviation 44.6 fL (36.4-46.3); Red Blood Count 3.32 M/uL (4.2-5.4); White Blood Count 12.53 K/uL (4.8-10.8)
[2020-11-29 07:05] LABS: BUN Creatinine Ratio 10.8 (10-20); Calcium 8.1 mg/dl (8.5-10.1); Est GFR (African American) 99.7; Potassium 2.9 mmol/L (3.5-5.1)
[2020-11-29 07:15] LABS: C Reactive Protein 21.7 mg/dl (0-0.29)
[2020-11-29] MEDS ORDERED: POTASSIUM CHLORIDE 20 MEQ/15 ML UDC PO STA (08:04)
[2020-11-29] MEDS: IBUPROFEN 800 MG TAB PO SCH ×3 (08:09→18:08)
[2020-11-29] MEDS: ADVANCED PROBIOTIC 1250 MG CAPSULE PO SCH (08:12)
--- NOTE | 2020-11-29 09:03 | Gynecologic Progress Note ---
Date of Service November 29, 2020 Assessment & Plan (1) Abscess of buttock: POD#1 doing much better. Is now at 24h abx after surgery, considering switch to PO antibiotics as long as continues to make clinical improvement. Admission and Anticipated Discharge Date Admission Date: November 26, 2020 Subjective POD#1 s/p I&D of right buttock abscess. She is doing much better today. Has been ambulating in the hallway. Is eating/drinking well. Urinating with pinto. Physical Exam Physical Exam: Abdomen: soft, NTTP, no distension Genital: packing still in place. Swelling of vulva has improved, still indurated area of vulva bilaterally as well as mons pubis. Minimal brownish discharge. Results & Data ([facility]) Vital Signs (Past 12 Hours) Vital Signs Temp Pulse Pulse Resp BP BP Pulse Ox 11/29/20 08:02 37.1 C 52 L 18 117/77 94 11/29/20 07:06 57 L 11/29/20 05:33 58 L 16 98 11/29/20 04:15 36.7 C 56 L 18 114/66 96 11/28/20 23:09 36.9 C 59 L 18 117/63 96
[2020-11-29] MEDS: ENOXAPARIN INJ 40 MG/0.4 ML SYR SQ SCH (10:18)
--- NOTE | 2020-11-29 11:07 | Hospitalist Progress Note ---
Date of Service November 29, 2020 Assessment & Plan (1) Cellulitis of labia: Shirlene Oliva is a 25y/o with no significant past medical history who presented to the ER for concerns of a worsening groin infection, subsequently found to have R labial cellulitis and an abscess on surgical expl oration. She is hemodynamically stable. 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, MANAGER PHILOSOPHY following: Out of concern for necrotizing cellulitis, emergent surgical exploration performed 11/28 -- no evidence of nec fasc, but a large R buttock abscess was noted -- s/p I&D - Continue vancomycin, zosyn [ today = day 5 ] IV for an additional day - Consider transitioning to amoxicillin-doxycycline PO tomorrow if continued clinical improvement AND cultures resulted - Wound culture demonstrating many GPCs, moderate GPBs -- await characterization, sensitization - BCX running (drawn after 24+ hrs of abx) - NGTD x 48 hour - Ibuprofen 800mg, and Tylenol 1000mg Q8h scheduled - Wound care - Appreciate surgical input for any further care needed Hypokalemia: - K at 2.9 this AM --> repleted - BMP qAM while here Dispo: MS/Tele Diet: Regular DVT ppx: Lovenox CODE STATUS: Full code Admission and Anticipated Discharge Date Admission Date: November 26, 2020 Supervising Physician Co-Signing Physician Notes I personally examined the patient and verified all curtis points of history and exam, discussed case, and agree with decision making with Dr Wlicox Continues to feel better. No new complaints. Walking around without a whole lot of pain. vitals noted nad heent nc at mmm breathing unlabored no accessory muscles good effort labial/buttocks cellulitis w abscess -- much improved postop. Given no ongoing appearance of a necrotizing fasciitis type process, and given the broad coverage affected by vancomycin and Zosyn, we will DC clindamycin given that the antitoxin effect is not likely needed anymore. Continue Vanco and Zosyn for now pending further clinical improvement and culture results from surgery. otherwise as above Subjective Feeling well overall this AM. Says she is having some soreness, but stain is still drastically improved compared to yesterday. Has been able to roam the halls several times without difficulty. Has been urinating fine. Denies chills, NS, loss of appetite. Review of Systems Review of Systems: as per HPI Physical Exam Physical Exam: General: 25-year-old female who is lying back in her hospital bed, fully alert and oriented. She is mildly diaphoretic. Mild distress. HEENT: NCAT. Eyes - Sclera are white, anicteric, and without injection. PERRL. EOMs display full ROM bilaterally. Cardiac: Normal rate and regular rhythm; S1 and S2 present with no murmurs, rubs, or gallops. Pulmonary: Good respiratory effort with symmetric expansion of the chest. No use of accessory muscles. Lungs were clear to auscultation bilaterally with no crackles or wheezes. Abdominal: Normoactive bowel sounds. Abdomen was soft, nondistended. Mild epigastric tenderness. : Patient's nurse was present for the entirety of the examination. There is diffuse erythema and induration lateral to the right labia, extending into the thigh fold. This does extend across midline towards the left labia. No crepitus. There is increased induration in the area directly superior to the right labia as compared to yesterday's exam -- area over the left more erythematous compared to prior. Dressing in place. Castano in place. Extremities: Upper and lower extremities are warm and well perfused. Radial and dorsalis pedis pulses were 2+ b/l. Capillary refill assessed in UE was < 3 sec. Results & Data Results & Data ([facility]) Vital Signs (Past 12 Hours) Vital Signs Temp Pulse Pulse Resp BP BP Pulse Ox 11/29/20 08:02 37.1 C 52 L 18 117/77 94 11/29/20 07:06 57 L 11/29/20 05:33 58 L 16 98 11/29/20 04:15 36.7 C 56 L 18 114/66 96 11/28/20 23:09 36.9 C 59 L 18 117/63 96 Resident Activity Tracking Resident Involvement: Resident Care Provided Care Provided: [facility]
--- NOTE | 2020-11-29 13:42 | Surgery Progress Note ---
Date of Service November 29, 2020 Assessment & Plan (1) Cellulitis of labia: POD # 1 s/p incision and drain of right buttock/right inferior labial abscess - avss - postop pain controlled, pain from cellulitis has improved since I&D - gram stain showing gram + cocci and gram + bacilli, sensitivities pending - blood culture x 2 ngtd - leukocytosis of 12K Plan: Given the rapid increase in cellulitis preoperatively and requiring I&D, would recommend continuing broad spectrum IV Antibiotics. Cellulitis is still moderate on examination. Continue pain management continue regular diet Keep packing in place will re-evaluate tomorrow repeat am cbc Dr. Paniagua has seen and examined patient, agrees with above. Admission and Anticipated Discharge Date Admission Date: November 26, 2020 Subjective feeling much better today than yesterday but still having pain in the groin area especially when trying to separate her legs. Walking hallway today with ease and tolerating regular diet. No nausea or vomiting pain much better Physical Exam Constitutional: WD/WN, vitals as above Respiratory: normal respiratory effort; no respiratory distress and no labored breathing Skin: erythema and induration of the mon pubis and labia with right lower lab ial/superior right buttock incision. Packing present. There is some induration extending to the right medial thigh with tenderness to palpation. no necrosis at incision. Erythema extends up to the right hip Psychiatric: Orientation: alert and oriented x 3 Results & Data ([facility]) Vital Signs (Past 12 Hours) Vital Signs Temp Pulse Pulse Resp BP BP Pulse Ox 11/29/20 11:29 36.9 C 55 L 18 135/79 97 11/29/20 08:02 37.1 C 52 L 18 117/77 94 11/29/20 07:06 57 L 11/29/20 05:33 58 L 16 98 11/29/20 04:15 36.7 C 56 L 18 114/66 96 Laboratory Results 11/29/20 11/29/20 Range/Units 06:10 06:10 WBC 12.53 H (4.8-10.8) K/uL RBC 3.32 L (4.2-5.4) M/uL Hgb 10.4 L (12.0-16.0) g/dL Hct 30.2 L (37-47) % MCV 91.0 (80-100) fL MCH 31.3 (25-34) pg MCHC 34.4 (32-36) g/dL RDW Std Deviation 44.6 (36.4-46.3) fL RDW Coeff of Dot 13.4 (11.5-14.5) % Plt Count 173 (130-400) K/uL MPV 11.0 H (7.4-10.4) fL Immature Gran % (Auto) 0.4 % Neut % (Auto) 84.6 % Lymph % (Auto) 8.9 % [place] % (Auto) 6.1 % Eos % (Auto) 0.0 % Baso % (Auto) 0.0 % Neut # (Auto) 10.60 H (1.4-6.5) K/uL Lymph # (Auto) 1.12 L (1.2-3.4) K/uL [place] # (Auto) 0.76 H (0.11-0.59) K/uL Eos # (Auto) 0.00 (0-0.5) K/uL Baso # (Auto) 0.00 (0-0.2) K/uL Immature Gran # (Auto) 0.05 H (0.00-0.02) K/uL Sodium 142 (136-145) mmol/L Potassium 2.9 L (3.5-5.1) mmol/L Chloride 111 H (98-107) mmol/L Carbon Dioxide 23 (21-32) mmol/L Anion Gap 8.0 (3-11) BUN 10 (7-18) mg/dl Creatinine 0.93 (0.6-1.2) mg/dl Est Cr Clr Drug Dosing 94.0 ml/min Est GFR ( Amer) 99.7 Est GFR (Non-Af Amer) 86.0 BUN/Creatinine Ratio 10.8 (10-20) Glucose 220 H (70-99) mg/dl Calcium 8.1 L (8.5-10.1) mg/dl C-Reactive Protein 21.70 H (0-0.29) mg/dl Microbiology 11/27/20 12:49 Aerobic Blood Culture - Preliminary Blood No growth in Aerobic bottle after 48 hours. Anaerobic Blood Culture - Preliminary No growth in Anaerobic bottle after 48 hours. 11/27/20 12:41 Aerobic Blood Culture - Preliminary Blood No growth in Aerobic bottle after 48 hours. Anaerobic Blood Culture - Preliminary No growth in Anaerobic bottle after 48 hours. 11/28/20 10:19 Gram Stain - Final Vulva
[2020-11-29] MEDS: SODIUM CHLORIDE 0.9% 1000ML 1,000 ML IV SCH (14:48)
--- NOTE | 2020-11-29 18:05 | Billing Data ---
Date of Service November 29, 2020 Coding Level of Care Code 82342 Subseq Hosp Care Lvl 3
[2020-11-29] MEDS ORDERED: POTASSIUM CHLORIDE CRTAB 20 MEQ TABCR PO STA (19:54)
[2020-11-30] MEDS: PIPERACILLIN/TAZOBACTAM 4.5 GM in DEXTROSE 5% 100 ML IV SCH ×3 (04:06→21:32)
[2020-11-30] MEDS ORDERED: KETOROLAC TROMETHAMINE 15 MG/ML VIAL IV ONE (04:32)
[2020-11-30] MEDS: VANCOMYCIN HCL 1,250 MG in SODIUM CHLORIDE 0.9% 250 ML IV SCH ×2 (05:33→13:42)
[2020-11-30 06:53] LABS: Basophils # (auto) 0.02 K/uL (0-0.2); Basophils % (auto) 0.2 %; Eosinophils # (auto) 0.02 K/uL (0-0.5); Eosinophils % (auto) 0.2 %; Hematocrit (blood only) 26.5 % (37-47); Hemoglobin 8.9 g/dL (12.0-16.0); Immature Granulocytes # (auto) 0.17 K/uL (0.00-0.02); Immature Granulocytes % (auto) 1.5 %; Lymphocytes # (auto) 2.42 K/uL (1.2-3.4); Lymphocytes % (auto) 21.8 %; Mean Corpuscular Hemoglobin 30.6 pg (25-34); Mean Corpuscular Hgb Conc 33.6 g/dL (32-36); Mean Corpuscular Volume 91.1 fL (80-100); Mean Platelet Volume 10.2 fL (7.4-10.4); Monocytes # (auto) 0.64 K/uL (0.11-0.59); Monocytes % (auto) 5.8 %; Neutrophils # (auto) 7.84 K/uL (1.4-6.5); Neutrophils % (auto) 70.5 %; Nucleated RBC # (auto) 0.03 K/uL (0-0); Nucleated RBC % (auto) 0.2 %; Platelet Count 191 K/uL (130-400); RDW Coefficient of Variation 13.6 % (11.5-14.5); Red Blood Count 2.91 M/uL (4.2-5.4); White Blood Count 11.11 K/uL (4.8-10.8)
--- NOTE | 2020-11-30 07:31 | Gynecologic Progress Note ---
Date of Service November 30, 2020 Assessment & Plan Admission and Anticipated Discharge Date Admission Date: November 26, 2020 resolving perineal cellulitis - wound culture still pending questionable collection in mons? may need to be evaluated with ultrasound/CT scan WBC increased yesterday but she remains afebrile. recheck CBC today Subjective feeling better this morning but continues to have some pain at area on I&D. having diarrhea as well. Review of Systems Review of Systems: All systems reviewed & are unremarkable except as noted in HPI & below Physical Exam Constitutional: WD/WN, vitals as above Psychiatric: A+Ox3, euthymic affect Genitourinary: marked decrease in erythema of mons & labia. fluctuant swelling in mons area. still some expected edema in labia as well Results & Data ([facility]) Vital Signs (Past 12 Hours) Vital Signs Temp Pulse Pulse Resp BP Pulse Ox 11/30/20 06:33 98.2 F 65 18 138/83 97 11/30/20 05:11 55 L 11/30/20 03:44 98.4 F 61 18 123/77 97 PG Care Time/CCT Total # of Minutes Spent Total Time Spent with Patient: Total time spent is greater than 50% in coordination of care (as documented) at patient's floor/unit and/or counseling patient: Coding Level of Care Code 59794 Subseq Hosp Care Lvl 3
[2020-11-30 07:51] LABS: BUN Creatinine Ratio 15.6 (10-20); Calcium 8.3 mg/dl (8.5-10.1); Creatinine Clr Calc Pharmacy 96.7 ml/min; Est GFR (African American) 103.7; Est GFR (Non-African American) 89.5; Potassium 3.1 mmol/L (3.5-5.1)
[2020-11-30] MEDS: IBUPROFEN 800 MG TAB PO SCH ×3 (08:17→17:30)
[2020-11-30] MEDS: ADVANCED PROBIOTIC 1250 MG CAPSULE PO SCH (08:17)
[2020-11-30] MEDS: ENOXAPARIN INJ 40 MG/0.4 ML SYR SQ SCH (08:18)
[2020-11-30] MEDS: POTASSIUM CHLORIDE / WTR 10 MEQ/100 ML PLCT IV SCH ×5 (09:33→23:57)
[2020-11-30] MEDS: SODIUM CHLORIDE 0.9% 500 ML IV SCH ×2 (09:34→17:43)
--- NOTE | 2020-11-30 12:18 | Surgery Progress Note ---
Date of Service November 30, 2020 Assessment & Plan (1) Abscess of buttock: The area around the buttock appears improved. There is less erythema but still significant tenderness swelling and induration in the mons pubis area. We discussed further observation with antibiotics versus reexploration to be sure there is no pocket superiorly that needs to be drained. We will going to opt for surgical intervention. I discussed with her the procedure and the possible complications and she has signed a consent form. Admission and Anticipated Discharge Date Admission Date: November 26, 2020 Subjective Still having pain in the mons pubis area. Has also pain near the incision. Has not had nausea or vomiting. Has not had fever. Physical Exam Gastrointestinal (Abdomen): Mons pubis remains firm and tender. There is less erythema however. There is less erythema extending laterally towards the right flank. Results & Data ([facility]) Vital Signs (Past 12 Hours) Vital Signs Temp Pulse Pulse Resp BP BP Pulse Ox 11/30/20 11:23 37.0 C 54 L 20 128/80 97 11/30/20 07:43 56 L 11/30/20 06:33 36.8 C 65 18 138/83 97 11/30/20 05:11 55 L 11/30/20 03:44 36.9 C 61 18 123/77 97 Laboratory Results 11/30/20 11/30/20 11/30/20 Range/Units 08:44 06:36 06:36 WBC 11.11 H (4.8-10.8) K/uL RBC 2.91 L (4.2-5.4) M/uL Hgb 8.9 L (12.0-16.0) g/dL Hct 26.5 L (37-47) % MCV 91.1 (80-100) fL MCH 30.6 (25-34) pg MCHC 33.6 (32-36) g/dL RDW Std Deviation 46.0 (36.4-46.3) fL RDW Coeff of Dot 13.6 (11.5-14.5) % Plt Count 191 (130-400) K/uL MPV 10.2 (7.4-10.4) fL Immature Gran % (Auto) 1.5 % Neut % (Auto) 70.5 % Lymph % (Auto) 21.8 % [place] % (Auto) 5.8 % Eos % (Auto) 0.2 % Baso % (Auto) 0.2 % Neut # (Auto) 7.84 H (1.4-6.5) K/uL Lymph # (Auto) 2.42 (1.2-3.4) K/uL [place] # (Auto) 0.64 H (0.11-0.59) K/uL Eos # (Auto) 0.02 (0-0.5) K/uL Baso # (Auto) 0.02 (0-0.2) K/uL Immature Gran # (Auto) 0.17 H (0.00-0.02) K/uL Absolute Nucleated RBC 0.03 H (0-0) K/uL Nucleated RBC % (auto) 0.2 % Sodium 144 (136-145) mmol/L Potassium 3.1 L (3.5-5.1) mmol/L Chloride 113 H (98-107) mmol/L Carbon Dioxide 25 (21-32) mmol/L Anion Gap 6.0 (3-11) BUN 14 (7-18) mg/dl Creatinine 0.90 (0.6-1.2) mg/dl Est Cr Clr Drug Dosing 96.7 ml/min Est GFR ( Amer) 103.7 Est GFR (Non-Af Amer) 89.5 BUN/Creatinine Ratio 15.6 (10-20) Glucose 106 H (70-99) mg/dl Calcium 8.3 L (8.5-10.1) mg/dl Procalcitonin 0.33 (0-0.5) ng/ml
[2020-11-30] MEDS ORDERED: VANCOMYCIN TROUGH ONE (13:00)
[2020-11-30] MEDS ORDERED: LIDOCAINE 2% 2 ML VIAL/AMP(20MG/ML) INFIL ONE (14:23)
[2020-11-30] MEDS ORDERED: PROPOFOL IV EMULSION 10 MG/ML 20 ML VIAL IV ONE (14:23)
[2020-11-30] MEDS ORDERED: DEXAMETHASONE SOD INJ 4 MG/ML VIAL ONE (14:23)
[2020-11-30] MEDS ORDERED: ONDANSETRON INJ 2 MG/ML 2 ML VIAL ONE (14:23)
[2020-11-30] MEDS ORDERED: MIDAZOLAM HCL 1 MG/ML 2ML VIAL ONE (14:24)
[2020-11-30] MEDS ORDERED: fentaNYL citrate 100 MCG/2 ML VIAL ONE ×3 (14:24→15:52)
--- NOTE | 2020-11-30 14:25 | Pharmacy Report ---
Pharmacy Abx Dose Short Note - Date of Service November 30, 2020 - Assessment & Plan Assessment 25 year old F receiving vancomycin and zosyn for abscess of buttock. Day # 5 of antimicrobial therapy. Plan Vancomycin * Trough level came back therapeutic at ~19 mcg/ml - goal 15-20 mcg/ml * Trough level from previous check 2 days ago, trending upward from ~13.4 mcg/ml - could be related to accumulation with vancomycin over time d/t BMI >35 kg/m2 * As level is on upper end of range and seems to be trending upward, may decrease vancomycin dosing empirically to 1 gm iv q 8 hrs * Plan to recheck level in next 2-3 days if vancomycin is to be continued further * Surgery consulted and may do I&D of area Pharmacy will continue to follow and will adjust dose/frequency as necessary. Thank you.
[2020-11-30] MEDS ORDERED: BUPIVACAINE/EPINEPHRINE 0.5% MPF 1:200,000 30 ML VIAL ONE (14:35)
[2020-11-30] MEDS ORDERED: ONDANSETRON INJ 2 MG/ML 2 ML VIAL IV PRN (14:40)
[2020-11-30] MEDS ORDERED: ATROPINE SULFATE 0.1 MG/ML 10ML SYR IV PRN (14:40)
[2020-11-30] MEDS ORDERED: HYDROmorphone INJ 2 MG/ML SYR/VIAL IV PRN (14:40)
[2020-11-30] MEDS ORDERED: ePHEDrine sulfate 50 MG/ML AMP IV PRN (14:40)
--- NOTE | 2020-11-30 14:40 | Anesthesiology Consultation ---
Date of Service November 30, 2020 Assessment & Plan ASA ASA2 Proposed Anesthesia Anesthesia Type: General Risk / Benefits Reviewed With: PT / POA / Parent / Guardian, Accepts Plan and Informed Consent Obtained History Surgery Operation Date: 11/28/20 16:25 Proposed Procedures p Incision and Drainage General - Kartik Souza MD s Marsupialization Bartholin Cyst - Kenyetta Anthony MD, FACOG Operation Date: 11/30/20 13:30 Proposed Procedures p Incision and Drainage, Re Exploration of Groin Abscess - Lm Paniagua MD Height/Weight Height: 5 ft 1 in Weight: 87.1 kg Allergies Allergy/AdvReac Type Severity Reaction Status Date / Time nickel AdvReac Mild Rash Verified 11/26/20 01:32 Medications Home Medications Medication Instructions Recorded Confirmed Last Taken albuterol sulfate 90 mcg/actuation 1 inh INHALATION QID PRN 11/25/20 11/26/20 Unknown aerosol inhaler cephalexin 500 mg capsule 500 mg PO Q6H 10 Days #40 cap 11/25/20 11/26/20 11/25/20 Active Medications Generic Name Dose Route Start Last Admin Trade Name Freq PRN Reason Stop Dose Admin Albuterol 1 puffs 11/28/20 11:41 11/29/20 05:32 Albuterol Hfa 8 Gm Inhaler INH 12/28/20 11:40 1 puffs QID PRN Administration Shortness Of Breath Protocol Enoxaparin Sodium 40 mg 11/26/20 09:00 11/30/20 08:18 Enoxaparin Inj 40 Mg/0.4 Ml Syr SQ 12/26/20 08:59 Not Given QAM INES Gabapentin 300 mg 11/26/20 17:02 11/27/20 02:03 Gabapentin 300 Mg Cap PO 12/26/20 17:14 300 mg Q8H PRN Administration genital pain Hydromorphone HCl 0.5 mg 11/28/20 19:21 11/29/20 12:10 Hydromorphone Inj 0.5 Mg/0.5 Ml Syr IV 12/12/20 19:20 0.5 mg Q4H PRN Administration Pain Piperacillin Sod/Tazobactam 120 mls @ 30 mls/hr 11/26/20 12:00 11/30/20 12:09 Sod 4.5 gm/ Dextrose IV 12/06/20 11:59 30 mls/hr Q8H INES Administration Protocol Vancomycin HCl 1,250 mg/ 275 mls @ 190 mls/hr 11/27/20 10:30 11/30/20 13:42 Sodium Chloride IV 11/30/20 16:00 190 mls/hr Q8H INES Administration Sodium Chloride 500 mls @ 80 mls/hr 11/30/20 09:15 11/30/20 09:34 Nss IV 12/30/20 09:14 80 mls/hr .Q6H15M INES Administration Ibuprofen 800 mg 11/27/20 12:00 11/30/20 12:12 Ibuprofen 800 Mg Tab PO 12/27/20 11:59 800 mg TIDM INES Administration Lactobacillus Acidoph/Casei/Rhamnos 2 cap 11/28/20 14:45 11/30/20 08:17 Advanced Probiotic 1250 Mg Capsule PO 12/28/20 14:44 2 cap DAILY INES Administration Ondansetron HCl 4 mg 11/26/20 06:16 11/28/20 19:59 Ondansetron Inj 2 Mg/Ml 2 Ml Vial IV 12/26/20 06:15 4 mg Q6H PRN Administration Nausea NPO Date Last Intake of Fluids: 11/27/20 Time Last Intake of Fluids: 18:00 Date Last Intake of Solids: 11/27/20 Time Last Intake of Solids: 18:00 Past Medical History Medical History Acute appendicitis Encounter for anatomic survey Evaluate anatomy not seen on prior sonogram Varicella vaccination Exercise / Class Metabolic Activity II 4-5 Yardwork/Stairs/Walk up hill Past Family History Family History Sister Ogjby-Nqfhpyhdr-Ifpem syndrome Grandmother (Maternal) Breast cancer Grandmother (Paternal) Breast cancer Mother Non-Hodgkin lymphoma Past Surgical History Surgical History S/P appendectomy S/P surgical removal of pilonidal cyst S/P wisdom tooth extraction Past Anesthesia History No Hx of Anesthesia Complications and No Family Hx of Anesthesia Complications History of PONV No Hx of PONV and No Hx of Motion Sickness Social History Smoking Status: Never smoker Do You Dip or Chew Tobacco: No Hx Alcohol Use: Yes Alcohol type: beer alcohol intake frequency: holidays/special occasions only Hx Substance Use: No substance use type: does not use Review of Systems denies fever/cough/ colds/ chest pain/ SOB/ THOM denies THOM Physical Exam Vital Signs Last Vital Signs Temp 37.0 C 11/30/20 11:23 Pulse 54 L 11/30/20 11:23 Resp 20 11/30/20 11:23 BP 128/80 11/30/20 11:23 Pulse Ox 97 11/30/20 11:23 ENMT Mouth: no TMJ abnormality and no dentition abnormality Thyromental Distance: > or= 3.5 Finger Breadths Mallampati Class: II Neck neck extension not limited Respiratory normal respiratory effort; no respiratory distress Auscultation: lungs clear to auscultation bilaterally Cardiovascular Rate/Rhythm: regular rate and regular rhythm Neurologic moves all extremities Psychiatric Orientation: alert and oriented x 3 Testing Laboratory Results 11/30/20 06:36 11/30/20 06:36 11/28/20 10:19 Gram Stain - Final Vulva Aerobic and Anaerobic Culture - Preliminary Pin-point growth present, reincubating. 11/27/20 12:49 Aerobic Blood Culture - Preliminary Blood No growth in Aerobic bottle after 48 hours. Anaerobic Blood Culture - Preliminary No growth in Anaerobic bottle after 48 hours. 11/27/20 12:41 Aerobic Blood Culture - Preliminary Blood No growth in Aerobic bottle after 48 hours. Anaerobic Blood Culture - Preliminary No growth in Anaerobic bottle after 48 hours.
--- NOTE | 2020-11-30 15:46 | Post Operative Brief Note ---
Immediate Post Op Note v1 Date of Surgery November 30, 2020 Pre & Post Diagnosis Operation Date: 11/28/20 16:25 Pre-Op Diagnosis: Cellulitis of labia Post-Op Diagnosis: Cellulitis of labia Operation Date: 11/30/20 13:30 <No data on this case meets the specified criteria> I identified the patient and participated in the time-out.: Yes Procedure Operation Date: 11/28/20 16:25 Actual Procedures p Incision and Drainage Right Buttock Abscess - Kartik Souza MD Operation Date: 11/30/20 13:30 <No data on this case meets the specified criteria> Surgeon Lm Paniagua MD Graduation Coach Brii NGUYEN Katie Estimated Blood Loss 10 Findings Consistent with Post-Op Diagnosis Specimens wound culture Drains Castano Catheter Anesthesia Type General
--- NOTE | 2020-11-30 16:24 | Anesthesiology Progress Note ---
Date of Service November 30, 2020 Anesthesia Post Procedure Vital Signs Vital Signs: Temp Pulse Pulse Pulse Resp BP BP 11/30/20 16:20 64 16 144/99 H 11/30/20 16:10 62 16 130/83 11/30/20 16:03 36.5 C 86 16 119/61 11/30/20 15:46 53 L 11/30/20 14:35 37.6 C H 51 L 16 136/89 11/30/20 11:23 37.0 C 54 L 20 128/80 11/30/20 07:43 56 L 11/30/20 06:33 36.8 C 65 18 138/83 11/30/20 05:11 55 L 11/30/20 03:44 36.9 C 61 18 123/77 11/29/20 19:24 36.7 C 55 L 18 138/81 11/29/20 17:00 11/29/20 16:25 61 Pulse Ox Pulse Ox 11/30/20 16:20 99 11/30/20 16:10 100 11/30/20 16:03 96 11/30/20 15:46 11/30/20 14:35 99 11/30/20 11:23 97 11/30/20 07:43 11/30/20 06:33 97 11/30/20 05:11 11/30/20 03:44 97 11/29/20 19:24 96 11/29/20 17:00 96 11/29/20 16:25 Pain Intensity Right Groin: Pain Intensity: 5 Transfer of Care Handoff Completed per policy Notes Mental Status: alert / awake / arousable and participated in evaluation Patient Amnestic to Procedure: Yes Nausea / Vomiting: adequately controlled Pain: adequately controlled Airway Patency, RR, SpO2: stable & adequate BP & HR: stable & adequate Hydration State: stable & adequate Anesthetic Complications: no major complications apparent and Pt Satisfied with anesthetic care
[2020-11-30] MEDS: fentaNYL citrate 100 MCG/2 ML VIAL IV PRN ×2 (16:26→16:31)
[2020-11-30] MEDS ORDERED: ALBUT/IPRATROP 3MG/0.5MG NEB 3 ML VIAL ONE (16:52)
[2020-11-30] MEDS ORDERED: ALBUT/IPRATROP 3MG/0.5MG NEB 3 ML VIAL NEB STA (16:59)
[2020-11-30] MEDS: HYDROmorphone INJ 0.5 MG/0.5 ML SYR IV PRN (17:30)
--- NOTE | 2020-11-30 17:35 | Operative Report (OR) ---
DATE OF OPERATION: 11/30/2020 PREOPERATIVE DIAGNOSIS: Abscess with previous I and D of left groin. POSTOPERATIVE DIAGNOSIS: Abscess with previous I and D of left groin. PROCEDURE: Reexploration of abscess. SURGEON: Lm Paniagua MD. FINDINGS: The patient had an I and D with I and D incision on the buttock, posterolateral to the introitus on the right side. She continued to have pain and tenderness with more swelling in the mons area. I explored with digitally placing my finger into the previous I and D incision and passing it up towards the mons pubis there was some tearing of the skin from the previous I and D incision, but there was also a cavity encountered superiorly. There was a small amount of purulent drainage. I made a counterincision there and then passed and opened the spaces towards the left side of the mons pubis and made a counterincision there. The area was irrigated with a copious amount of saline solution and Jag drains were used to connect the incisions. Dressing was placed. Estimated blood loss was 5 mL. Sponge, needle and instrument counts were correct. I attest to the content of the Intraoperative Record and any orders documented therein. Any exception s are noted below.
[2020-11-30] MEDS ORDERED: LACTATED RINGER'S 1,000 ML IV SCH (17:40)
[2020-11-30] MEDS ORDERED: hydrOXYzine HCl 25 MG TAB PO STA (18:38)
--- NOTE | 2020-11-30 19:10 | Hospitalist Progress Note ---
Date of Service November 30, 2020 Assessment & Plan (1) Cellulitis of labia: Shirlene Oliva is a 25y/o with no significant past medical history who presented to the ER for concerns of a worsening groin infection, subsequently found to have R labial cellulitis and an abscess on surgical expl oration. She is hemodynamically stable. 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: Out of concern for necrotizing cellulitis, emergent surgical exploration performed 11/28 -- no evidence of nec fasc, but a large R buttock abscess was noted -- s/p I&D - Taken back for surgical exploration today given increased induration over the Mons -- did reveal small pocket of purulent drainage - Continue vancomycin, zosyn [ today = day 6 ] IV for an additional day - Consider transitioning to amoxicillin-doxycycline PO tomorrow if continued clinical improvement AND cultures resulted - Wound culture demonstrating many GPCs, moderate GPBs -- await characterization, sensitization - BCX running (drawn after 24+ hrs of abx) - NGTD - Ibuprofen 800mg, and Tylenol 1000mg Q8h scheduled - Wound care - Appreciate surgical input for any further care needed Hypokalemia: - K at 3.1 this AM --> repleted - Add on KCl 20mEq p.o. qAM - BMP qAM while here Dispo: MS/Tele Diet: Regular DVT ppx: Lovenox CODE STATUS: Full code Admission and Anticipated Discharge Date Admission Date: November 26, 2020 Supervising Physician Co-Signing Physician Notes I personally examined the patient and verified all curtis points of history and exam, discussed case, and agree with decision making with Dr Wilcox for surgery again today vitals noted nad heent nc at mmm breathing unlabored no accessory muscles good effort labial/buttocks cellulitis w abscess --fortunately stable from a septic standpoint. Unfortunately appears likely to have formed another abscessback to the OR today. Continue current antibiotics. Continue supportive care. otherwise as above Subjective Feeling ok this morning. Reporting a bit more pain today in the Mons area. No nausea. No chest pain, palpitations, SOB. Appetite OK. Review of Systems Review of Systems: as per HPI Physical Exam Physical Exam: General: 25-year-old female who is lying back in her hospital bed, fully alert and oriented. She is mildly diaphoretic. Mild distress. HEENT: NCAT. Eyes - Sclera are white, anicteric, and without injection. PERRL. EOMs display full ROM bilaterally. Cardiac: Normal rate and regular rhythm; S1 and S2 present with no murmurs, rubs, or gallops. Pulmonary: Good respiratory effort with symmetric expansion of the chest. No use of accessory muscles. Lungs were clear to auscultation bilaterally with no crackles or wheezes. Abdominal: Normoactive bowel sounds. Abdomen was soft, nondistended. Mild epigastric tenderness. : Patient's nurse was present for the entirety of the examination. There is diffuse erythema and induration lateral to the right labia, extending into the thigh fold. This does extend across midline towards the left labia, a bit more than yesterday and outside the margins. No crepitus. There is increased induration in the area directly superior to the right labia as compared to yesterday's exam, and now the left labia too -- area over the left more erythematous compared to prior. Dressing in place. Castano in place. Extremities: Upper and lower extremities are warm and well perfused. Radial and dorsalis pedis pulses were 2+ b/l. Capillary refill assessed in UE was < 3 sec. Results & Data Results & Data ([facility]) Vital Signs (Past 12 Hours) Vital Signs Temp Pulse Pulse Pulse Resp BP BP 11/30/20 18:24 36.9 C 79 18 122/77 11/30/20 17:00 65 16 145/83 H 11/30/20 16:50 36.6 C 57 L 16 132/94 11/30/20 16:40 56 L 16 123/87 11/30/20 16:30 56 L 16 129/92 11/30/20 16:20 64 16 144/99 H 11/30/20 16:10 62 16 130/83 11/30/20 16:03 36.5 C 86 16 119/61 11/30/20 15:46 53 L 11/30/20 14:35 37.6 C H 51 L 16 136/89 11/30/20 11:23 37.0 C 54 L 20 128/80 11/30/20 07:43 56 L Pulse Ox 11/30/20 18:24 95 11/30/20 17:00 98 11/30/20 16:50 100 11/30/20 16:40 100 11/30/20 16:30 98 11/30/20 16:20 99 11/30/20 16:10 100 11/30/20 16:03 96 11/30/20 15:46 11/30/20 14:35 99 11/30/20 11:23 97 11/30/20 07:43 Resident Activity Tracking Resident Involvement: Resident Care Provided Care Provided: Adult Hospital Medicine
--- NOTE | 2020-11-30 20:09 | Billing Data ---
Date of Service November 30, 2020 Coding Level of Care Code 90193 Subseq Hosp Care Lvl 3
[2020-11-30 21:00] LABS: Calcium 8.1 mg/dl (8.5-10.1); Creatinine Clr Calc Pharmacy 85.3 ml/min; Est GFR (African American) 89.2 ml/min; Est GFR (Non-African American) 76.9 ml/min; Potassium 3.4 mmol/L (3.5-5.1)
[2020-12-01] MEDS: VANCOMYCIN HCL 1,000 MG in SODIUM CHLORIDE 0.9% 250 ML IV SCH ×3 (00:20→16:25)
[2020-12-01] MEDS: POTASSIUM CHLORIDE / WTR 10 MEQ/100 ML PLCT IV SCH (01:08)
[2020-12-01] MEDS: PIPERACILLIN/TAZOBACTAM 4.5 GM in DEXTROSE 5% 100 ML IV SCH ×3 (04:23→20:06)
[2020-12-01] MEDS ORDERED: ACETAMINOPHEN 325 MG TAB PO SCH (07:00)
[2020-12-01] MEDS: POTASSIUM CHLORIDE CRTAB 20 MEQ TABCR PO SCH (07:37)
[2020-12-01] MEDS: ADVANCED PROBIOTIC 1250 MG CAPSULE PO SCH (07:38)
[2020-12-01] MEDS: IBUPROFEN 800 MG TAB PO SCH ×3 (07:38→17:30)
[2020-12-01 07:41] LABS: Nucleated RBC # (auto) 0.06 K/uL (0-0); Nucleated RBC % (auto) 0.4 %
[2020-12-01 08:06] LABS: Calcium 8.6 mg/dl (8.5-10.1); Potassium 3.5 mmol/L (3.5-5.1)
[2020-12-01 08:19] LABS: BUN Creatinine Ratio 9.8 (10-20); Creatinine Clr Calc Pharmacy 93.5 ml/min; Est GFR (African American) 99.7 ml/min
[2020-12-01 08:24] LABS: Basophils # (auto) 0.01 K/uL (0-0.2); Basophils % (auto) 0.1 %; Hematocrit (blood only) 32.2 % (37-47); Hemoglobin 10.9 g/dL (12.0-16.0); Immature Granulocytes # (auto) 0.19 K/uL (0.00-0.02); Immature Granulocytes % (auto) 1.4 %; Lymphocytes # (auto) 2.12 K/uL (1.2-3.4); Lymphocytes % (auto) 15.5 %; Mean Corpuscular Hemoglobin 31.1 pg (25-34); Mean Corpuscular Hgb Conc 33.9 g/dL (32-36); Mean Corpuscular Volume 91.7 fL (80-100); Mean Platelet Volume 9.9 fL (7.4-10.4); Monocytes # (auto) 0.74 K/uL (0.11-0.59); Monocytes % (auto) 5.4 %; Neutrophils # (auto) 10.62 K/uL (1.4-6.5); Neutrophils % (auto) 77.6 %; Platelet Count 288 K/uL (130-400); RDW Coefficient of Variation 13.4 % (11.5-14.5); RDW Standard Deviation 45.1 fL (36.4-46.3); Red Blood Count 3.51 M/uL (4.2-5.4); Toxic Granulation 2+; White Blood Count 13.68 K/uL (4.8-10.8)
--- NOTE | 2020-12-01 09:23 | Hospitalist Progress Note ---
Date of Service December 01, 2020 Assessment & Plan (1) Cellulitis of labia: Shirlene Oliva is a 25y/o with no significant past medical history who presented to the ER for concerns of a worsening groin infection, subsequently found to have R labial cellulitis and buttock / mons abscesses on surgical exploration. No evidence of necrotizing fascitis. She is hemodynamically stable. 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 for moderate/breakthrough pain - Wound care Hypokalemia: - Mild but somewhat persistent hypoK throughout hospital course here - Add on KCl 20mEq p.o. qAM on 12/01 AM - K low-normal at 3.5 this AM Dispo: MS/Tele Diet: Regular DVT ppx: Lovenox CODE STATUS: Full code Admission and Anticipated Discharge Date Admission Date: November 26, 2020 Supervising Physician Co-Signing Physician Notes I personally examined the patient and verified all curtis points of history and exam, discussed case, and agree with decision making with Dr Wilcox Feeling better overall, starting to wonder about going home. vitals noted nad heent nc at mmm breathing unlabored no accessory muscles good effort labial/buttocks cellulitis w abscess --overall doing betterstable from a septic standpoint, now appears to be improving overall from a surgical standpoint as well. Continue IV antibiotics and vigilance at least into tomorrow, and then if she is continuing to make progress possibly home later in the day tomorrow after the bulk of the day on IV antibiotics. Otherwise as above. Subjective Overall, reports feeling okay this morning. Does endorse some postsurgical pain, but still much better compared to before both I&Ds. Says that her appeti te still is not great. No nausea or vomiting. No chills or night sweats. Still some persistent induration/firmness over the mons per patient, but better compared to before Review of Systems Review of Systems: As per HPI Physical Exam Physical Exam: General: 25-year-old female who is lying back in her hospital bed, fully alert and oriented. She is mildly diaphoretic. Mild distress. HEENT: NCAT. Eyes - Sclera are white, anicteric, and without injection. PERRL. EOMs display full ROM bilaterally. Cardiac: Normal rate and regular rhythm; S1 and S2 present with no murmurs, rubs, or gallops. Pulmonary: Good respiratory effort with symmetric expansion of the chest. No use of accessory muscles. Lungs were clear to auscultation bilaterally with no crackles or wheezes. Abdominal: Normoactive bowel sounds. Abdomen was soft, nondistended. Mild epigastric tenderness. : Patient's nurse was present for the entirety of the examination. There is diffuse erythema and induration lateral to the right labia; less towards the thigh fold. This does extend across midline towards the left labia, however does seem mildly better than yesterday. Drain and incision in place - c/d/i. No crep itus. There is unchanged induration in the area directly superior to the right labia as compared to yesterday's exam. Castano in place. Extremities: Upper and lower extremities are warm and well perfused. Radial and dorsalis pedis pulses were 2+ b/l. Capillary refill assessed in UE was < 3 sec. Results & Data Results & Data ([facility]) Vital Signs (Past 12 Hours) Vital Signs Temp Pulse Pulse Resp BP Pulse Ox 12/01/20 06:37 36.9 C 47 L 18 150/79 H 94 12/01/20 03:08 36.9 C 55 L 18 125/65 96 12/01/20 00:06 50 L 11/30/20 23:14 37.0 C 54 L 18 149/81 H 97 Resident Activity Tracking Resident Involvement: Resident Care Provided Care Provided: Adult Hospital Medicine
--- NOTE | 2020-12-01 10:02 | Gynecologic Progress Note ---
Date of Service Day 1 after second I/D of infection. Patient feels well, pain ok Exam: Minimal to little redness, drains in place. Plan to follow along with medicine and surg December 01, 2020 Assessment & Plan Admission and Anticipated Discharge Date Admission Date: November 26, 2020 Results & Data ([facility]) Vital Signs (Past 12 Hours) Vital Signs Temp Pulse Pulse Resp BP Pulse Ox 12/01/20 06:37 98.4 F 47 L 18 150/79 H 94 12/01/20 03:08 98.4 F 55 L 18 125/65 96 12/01/20 00:06 50 L 11/30/20 23:14 98.6 F 54 L 18 149/81 H 97 PG Care Time/CCT Total # of Minutes Spent Total Time Spent with Patient: Total time spent is greater than 50% in coordination of care (as documented) at patient's floor/unit and/or counseling patient: Coding Level of Care Code None
--- NOTE | 2020-12-01 10:03 | Surgery Progress Note ---
Date of Service December 01, 2020 Assessment & Plan (1) Abscess of buttock: Status post I&D as well as reexploration yesterday By exam there is much less erythema. There is much less tenderness. Subjectively she is better as well. Would continue with IV antibiotics Can consider soaks Would do IV antibiotics for at least 1 more day however after that could consider discharge Would leave the [place] drains in place. Admission and Anticipated Discharge Date Admission Date: November 26, 2020 Subjective Feels much better today Having less pain Able to ambulate and move around in bed without discomfort Physical Exam Genitourinary: No obvious purulent drainage. The amount of erythema of the mons pubis area is dramatically better Much less tenderness No fluctuance Results & Data ([facility]) Vital Signs (Past 12 Hours) Vital Signs Temp Pulse Pulse Resp BP Pulse Ox 12/01/20 06:37 36.9 C 47 L 18 150/79 H 94 12/01/20 03:08 36.9 C 55 L 18 125/65 96 12/01/20 00:06 50 L 11/30/20 23:14 37.0 C 54 L 18 149/81 H 97 Laboratory Results 12/01/20 12/01/20 12/01/20 Range/Units 07:12 07:12 07:12 WBC 13.68 H (4.8-10.8) K/uL RBC 3.51 L (4.2-5.4) M/uL Hgb 10.9 L (12.0-16.0) g/dL Hct 32.2 L (37-47) % MCV 91.7 (80-100) fL MCH 31.1 (25-34) pg MCHC 33.9 (32-36) g/dL RDW Std Deviation 45.1 (36.4-46.3) fL RDW Coeff of Dot 13.4 (11.5-14.5) % Plt Count 288 D (130-400) K/uL MPV 9.9 (7.4-10.4) fL Immature Gran % (Auto) 1.4 % Neut % (Auto) 77.6 % Lymph % (Auto) 15.5 % [place]isco[place] % (Auto) 5.4 % Eos % (Auto) 0.0 % Baso % (Auto) 0.1 % Neut # (Auto) 10.62 H (1.4-6.5) K/uL Lymph # (Auto) 2.12 (1.2-3.4) K/uL [place] # (Auto) 0.74 H (0.11-0.59) K/uL Eos # (Auto) 0.00 (0-0.5) K/uL Baso # (Auto) 0.01 (0-0.2) K/uL Immature Gran # (Auto) 0.19 H (0.00-0.02) K/uL Absolute Nucleated RBC 0.06 H (0-0) K/uL Nucleated RBC % (auto) 0.4 % Toxic Granulation 2+ Sodium 142 (136-145) mmol/L Potassium 3.5 (3.5-5.1) mmol/L Chloride 110 H (98-107) mmol/L Carbon Dioxide 26 (21-32) mmol/L Anion Gap 6.0 (3-11) BUN 9 (7-18) mg/dl Creatinine 0.93 Cancelled (0.6-1.2) mg/dl Est Cr Clr Drug Dosing 93.5 Cancelled ml/min Est GFR ( Amer) 99.7 Cancelled ml/min Est GFR (Non-Af Amer) 86.0 Cancelled ml/min BUN/Creatinine Ratio 9.8 L (10-20) Glucose 128 H (70-99) mg/dl Calcium 8.6 (8.5-10.1) mg/dl Vancomycin Trough (See Comment) mcg/ml 11/30/20 11/30/20 Range/Units 20:15 13:12 WBC (4.8-10.8) K/uL RBC (4.2-5.4) M/uL Hgb (12.0-16.0) g/dL Hct (37-47) % MCV (80-100) fL MCH (25-34) pg MCHC (32-36) g/dL RDW Std Deviation (36.4-46.3) fL RDW Coeff of Dot (11.5-14.5) % Plt Count (130-400) K/uL MPV (7.4-10.4) fL Immature Gran % (Auto) % Neut % (Auto) % Lymph % (Auto) % [place]isco[place] % (Auto) % Eos % (Auto) % Baso % (Auto) % Neut # (Auto) (1.4-6.5) K/uL Lymph # (Auto) (1.2-3.4) K/uL [place] # (Auto) (0.11-0.59) K/uL Eos # (Auto) (0-0.5) K/uL Baso # (Auto) (0-0.2) K/uL Immature Gran # (Auto) (0.00-0.02) K/uL Absolute Nucleated RBC (0-0) K/uL Nucleated RBC % (auto) % Toxic Granulation Sodium 143 (136-145) mmol/L Potassium 3.4 L (3.5-5.1) mmol/L Chloride 111 H (98-107) mmol/L Carbon Dioxide 24 (21-32) mmol/L Anion Gap 8.0 (3-11) BUN 10 (7-18) mg/dl Creatinine 1.02 (0.6-1.2) mg/dl Est Cr Clr Drug Dosing 85.3 ml/min Est GFR ( Amer) 89.2 ml/min Est GFR (Non-Af Amer) 76.9 ml/min BUN/Creatinine Ratio 10.0 (10-20) Glucose 156 H (70-99) mg/dl Calcium 8.1 L (8.5-10.1) mg/dl Vancomycin Trough 19.0 (See Comment) mcg/ml
[2020-12-01] MEDS: traMADol HCL 50 MG TABLET PO PRN ×2 (16:24→20:06)
[2020-12-02] MEDS: VANCOMYCIN HCL 1,000 MG in SODIUM CHLORIDE 0.9% 250 ML IV SCH (00:30)
[2020-12-02] MEDS: traMADol HCL 50 MG TABLET PO PRN ×3 (03:20→16:44)
[2020-12-02] MEDS: PIPERACILLIN/TAZOBACTAM 4.5 GM in DEXTROSE 5% 100 ML IV SCH ×2 (03:22→12:26)
[2020-12-02 06:35] LABS: Basophils # (auto) 0.02 K/uL (0-0.2); Basophils % (auto) 0.2 %; Hematocrit (blood only) 34.2 % (37-47); Hemoglobin 11.6 g/dL (12.0-16.0); Immature Granulocytes # (auto) 0.43 K/uL (0.00-0.02); Immature Granulocytes % (auto) 4.3 %; Lymphocytes # (auto) 2.94 K/uL (1.2-3.4); Lymphocytes % (auto) 29.2 %; Mean Corpuscular Hemoglobin 30.5 pg (25-34); Mean Corpuscular Hgb Conc 33.9 g/dL (32-36); Mean Platelet Volume 9.4 fL (7.4-10.4); Neutrophils # (auto) 5.98 K/uL (1.4-6.5); Neutrophils % (auto) 59.3 %; Platelet Count 273 K/uL (130-400); RDW Coefficient of Variation 13.1 % (11.5-14.5); RDW Standard Deviation 42.8 fL (36.4-46.3); White Blood Count 10.07 K/uL (4.8-10.8)
--- NOTE | 2020-12-02 06:57 | Gynecologic Progress Note ---
Date of Service December 02, 2020 Assessment & Plan (1) Cellulitis of buttock: (2) Cellulitis of labia: Admission and Anticipated Discharge Date Admission Date: November 26, 2020 significantly improving clinical status. Wound culture grew out peptostreptococcus anerobus. So we should certainly have correct coverage with the clinda and zosyn. Can probably d/c the vanc as no MRSA. WBC count now in the normal range and has been afebrile. Disposition and f/u based on surgical team now and certainly appreciate all their effort and help in this case. Hopefully can remove pinto? Will continue to follow to d/c. Subjective Patient notes she continues to do better, although , yesterday she was a little slower to move because of discomfort. She notes the drains are irritating and the pinto is rubbing. She notes she is taking tylenol and tramadol for pain and it helps. She would really love a shower. NO n/v. No complaints regarding BM. Physical Exam Constitutional: WD/WN, vitals as above Psychiatric: A+Ox3, euthymic affect Genitourinary: The area overall is looking much better than when I was last here on Saturday. significantly less erythema. 2 TEJ drains noted. The mons is starting to soften and the labia are also softer and decreased in size. E rythema resolving on the hip and buttock as well, softer. The groin incision has fresh edges. Still some tenderness to palpation in certain areas. Results & Data ([facility]) Vital Signs (Past 12 Hours) Vital Signs Temp Pulse Resp BP Pulse Ox 12/02/20 03:08 36.7 C 56 L 20 136/73 98 12/01/20 23:13 36.9 C 56 L 18 132/68 96 PG Care Time/CCT Total # of Minutes Spent Total Time Spent with Patient: Total time spent is greater than 50% in coordination of care (as documented) at patient's floor/unit and/or counseling patient: Coding Level of Care Code 54406 Inpt Consult Level 1 Diagnoses Cellulitis of buttock L03.317 Cellulitis of labia N76.2
[2020-12-02 07:05] LABS: BUN Creatinine Ratio 10.7 (10-20); Calcium 8.3 mg/dl (8.5-10.1); Creatinine Clr Calc Pharmacy 106.7 ml/min; Est GFR (African American) 116.1 ml/min; Est GFR (Non-African American) 100.2 ml/min; Potassium 3.3 mmol/L (3.5-5.1)
[2020-12-02] MEDS: IBUPROFEN 800 MG TAB PO SCH ×3 (08:27→16:45)
[2020-12-02] MEDS: POTASSIUM CHLORIDE CRTAB 20 MEQ TABCR PO SCH (08:28)
[2020-12-02] MEDS: ADVANCED PROBIOTIC 1250 MG CAPSULE PO SCH (08:28)
--- NOTE | 2020-12-02 10:25 | Hospitalist Progress Note ---
Date of Service December 02, 2020 Assessment & Plan (1) Cellulitis of labia: Shirlene Oliva is a 25y/o with no significant past medical history who presented to the ER for concerns of a worsening groin infection, subsequently found to have R labial cellulitis and buttock / mons abscesses on surgical exploration. No evidence of necrotizing fascitis. She is hemodynamically stable. 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 for moderate/breakthrough pain - Wound care Hypokalemia: - Mild but somewhat persistent hypoK throughout hospital course here - Add on KCl 20mEq p.o. qAM on 12/01 AM - K low-normal at 3.5 this AM Dispo: MS/Tele Diet: Regular DVT ppx: Lovenox CODE STATUS: Full code Admission and Anticipated Discharge Date Admission Date: November 26, 2020 Results & Data Results & Data ([facility]) Vital Signs (Past 12 Hours) Vital Signs Temp Pulse Pulse Resp BP Pulse Ox 12/02/20 08:00 36.7 C 99 H 18 100/64 97 12/02/20 03:08 36.7 C 56 L 20 136/73 98 12/01/20 23:13 36.9 C 56 L 18 132/68 96
--- NOTE | 2020-12-02 14:11 | Discharge Summary ---
Date of Service December 02, 2020 Admission HPI Per Admitting Provider Shirlene is a 25 yo woman who presented to emergency department for progressive pain and swelling of a right groin infection. On 11/23/20 she noted a nodule on her R labia - which she squeezed and was able to express some discharge. The area became progressively more sore - promoting her to make an appointment with [facility] on 11/25/20. She was diagnosed with a R labial cellulitis (likely originating from an inflamed follicle) and started on a course of Keflex 500mg QID for 10 days. She took two doses before coming to the ED for worsening discomfort. She gave 2 months ago - she has not been sexually active since her delivery. She does shave with a razor in the groin area. On arrival to the ED, her CBC showed mild leukocytosis at 10.8 with neutrophil predominance. CRP was elevated to 27. K low at 3.2. Cat scan of abdomen and pelvis showing cellulitis in R labia extending into perineum and anterior pelvic wall; no drainable fluid collection, no gas in pelvis. Patient was given 1 dose of Ceftriaxone 2g, and started on IV vancomycin and clindamycin. She was given 2 liters of normal saline. Admission Exam Per Admitting Provider Constitutional: WD/WN, vitals as above cooperative; no acute distress Eyes: + anicteric sclerae ENMT: external ear and nose normal, oropharynx normal Neck: normal visual inspection and trachea midline Respiratory: normal respiratory effort, lungs clear to auscultation Cardiovascular: Rate/Rhythm: regular rhythm and + tachycardic Heart Sounds: normal S1 and normal S2; no murmur Extremities: no pedal edema Gastrointestinal (Abdomen): normal bowel sounds, soft, nontender, no hepatosplenomegaly Skin: no rashes, warm and dry Psychiatric: A+Ox3, euthymic affect Genitourinary: Right labia and pubic area erythematous and edematous concerning for infection. Tender to palpation. + indurated skin. No crepitus Principal Diagnosis Labial Cellulitis R Buttock Abscess L Mons Abscess Discharge Exam General: 25-year-old female who is lying back in her hospital bed, fully alert and oriented. She is mildly diaphoretic. Mild distress. HEENT: NCAT. Eyes - Sclera are white, anicteric, and without injection. PERRL. EOMs display full ROM bilaterally. Cardiac: Normal rate and regular rhythm; S1 and S2 present with no murmurs, rubs, or gallops. Pulmonary: Good respiratory effort with symmetric expansion of the chest. No use of accessory muscles. Lungs were clear to auscultation bilaterally with no crackles or wheezes. Abdominal: Normoactive bowel sounds. Abdomen was soft, nondistended. Mild epigastric tenderness. : Patient's nurse was present for the entirety of the examination. There is a small patch of erythema and induration superolateral to the right labia; less towards the thigh fold. Greatly improved from previous day's exams. This does extend across midline towards the left labia, however does seem much better than yesterday. Drain and incision in place - c/d/i. No crepitus. Extremities: Upper and lower extremities are warm and well perfused. Radial and dorsalis pedis pulses were 2+ b/l. Capillary refill assessed in UE was < 3 sec. Discharge Data Allergies Allergy/AdvReac Type Severity Reaction Status Date / Time nickel AdvReac Mild Rash Verified 11/26/20 01:32 Consultations 11/26/20 03:42 ED Decision to Admit Stat 11/27/20 10:57 Consult Gynecology Routine 11/28/20 08:53 Consult General Surgery Stat Procedures Performed Operation Date: 11/28/20 16:25 Actual Procedures p Incision and Drainage Right Buttock Abscess - Kartik Souza MD Operation Date: 11/30/20 13:30 Actual Procedures p Incision and Drainage, Re Exploration of Groin Abscess(Not Applicable) - Lm Paniagua MD Ordered Studies 11/26/20 01:30 CT abd pelvis IV con only Urgent 11/26/20 09:00 CT pelvis wo con Urgent 11/27/20 08:48 CT pelvis wo con Routine Hospital Course (1) Cellulitis of labia: Shirlene Oliva is a 25y/o with no significant past medical history who presented to the ER for concerns of a worsening groin infection, subsequently found to have R labial cellulitis and buttock / mons abscesses on surgical exploration. No evidence of necrotizing fascitis. She is hemodynamically stable. Cellulitis of Labia (R>L) with R Buttock, Mons Abscesses - s/p I&D - worsening erythema/edema and pain over the several days prior to admission, with subsequent worsening during admission despite broad antimicrobial therapy - CT Abd/pelvis demonstrating inflammation within the right labia, groin, and subcutaneous tissues of the pelvis, no abscess, and no soft tissue gas - General surgery, [facility] followed throughout stay: - surgical exploration performed 11/28 -- no evidence of nec fasc, but a large R buttock abscess was noted -- s/p I&D - surgical exploration performed again 11/30 -- cavity of pus drained (and drain placed) above the mons, L side, with drain placed - Was on Vancomycin + Zosyn during stay while awaiting wound cultures - Final culture from wound demonstrated: Peptostreptococcus anaerobis - Upon discharge, begin Augmentin 875-125 PO b.i.d. x 12 days to complete 14 day course (from second I&D) - Tramadol p.r.n. for wound pain (short course RX) - Otherwise, per instructions provided by surgery (will need drain removed within 5 days of discharge -- surgery provided f/u instructions) Hypokalemia: - Mild (2.9-3.4) but somewhat persistent hypoK throughout hospital course here - Add on KCl 20mEq p.o. qAM while here - Recommend rechecking BMP within 1-2 weeks of discharge Total Time Total Time Spent Total Time Spent (In Minutes): <30 Discharge Plan Discharge Items Patient Disposition: Home - Self-Care Reason For Visit: CELLULITIS Discharge Diagnosis: cellulitis with abscess Condition on Discharge: Fair Activity: Per Instructions section Non-emergency contact: Primary Care Provider, Surgeon and Transfusion Nurse Call non-emergency contact if: you have any medication questions, your symptoms worsen, your pain is worsening, your temperature is above 101, your wound has increased redness, your wound has increased drainage and your wound pain has increased Follow-up/Referrals: Jason Colon PA-C [Primary Care Provider] - 12/09/20 11:00 am Diet: Regular OB Addtl Attending Provider Instructions: You were seen at [facility] for evaluation and treatment of cellulitis. During your stay here, you received intravenous antibiotics to help treat your antibiotics. Because there initially wasn't much improvement, you also underwent surgical exploration to rule out a condition called "necrotizing fascitis" -- thankfully, there was no evidence of this, but an abscess was identified and drained. Another surgical exploration was later required, which also revealed an abscess-like collection -- a drain was also placed during this time. By the time of discharge, you demonstrated great improvement - stable to continue therapy as an outpatient on oral antibiotics. Upon discharge, you will need to take antibiotics (Augmentin, twice daily) for 12 days. Even if the redness in the area completely goes away and feels better, it is imperative you complete this course fully. Further, you will need to follow-up with your surgeon to have your drain removed. Please follow-up with your PCP within 1 week to review this visit; this will be very important for reevaluation of the cellulitis and to see how you are doing. In the interim, if you experience any worsening in fevers, chills, muscle aches, redness/swelling/drainage, nausea, vomiting, diarrhea, chest pain, or shortness of breath, please seek medical attention; if your symptoms are severe, you should report to the ER immediately or call 911. It has been a pleasure caring for you at [facility]. We wish you the best in your recovery. Addtl Process Line Operator Provider Instructions: General Surgery discharge instructions: - No wound care is needed - keep the area covered with gauze or abd dressing and change as needed to keep clean and dry - Move drains once a day - Shower at least two times a day to keep area clean. Let soap and water run over the area and pat dry and cover with clean/dry dressings - Take oral antibiotics as prescribed for entire course - Follow-up in surgical office week of . Please call office at [phone] to make an appointment. Pending Studies at Discharge: No Stand-Alone Forms: My [facility] [employer], Smoking Cessation Medications and DC Order Prescriptions: New Advanced Probiotic 625 mg (10 billion cell) Capsule 2 cap PO DAILY 24 Days Qty: 48 RF: 0 amoxicillin-pot clavulanate [Augmentin] 875-125 mg tablet 1 tab PO BID 12 Days Qty: 24 RF: 0 tramadol 50 mg tablet 50 mg PO Q6H PRN (Reason: pain) Qty: 20 RF: 0 Continued albuterol sulfate 90 mcg/actuation HFA aerosol inhaler 1 inh inhalation QID PRN (Reason: Shortness Of Breath) RF: 0 Discontinued cephalexin 500 mg capsule 500 mg PO Q6H 10 Days Qty: 40 RF: 0 Discharge Orders: Discharge Order (Routine); Ordered 12/02/20 Ordered By: Chandler Wilcox Admission Data Admit Date/Time: 11/26/20 03:35 Attending Provider: Chandler Martino Admit Provider: Verena Pascal Primary Care Provider: Jason Colon Other Providers: Yadira Teran ; Verena Pascal ; Kenyetta Anthony ; Kartik Souza Other Interventions: Discharge Summary Assessment (RN) Last Done: 12/02/20 16:33 Supervising Physician Co-Signing Physician Notes I personally examined the patient and verified all curtis points of history and exam, discussed case, and agree with decision making with Dr Wilcox Overall feeling good, pain controlled, would very much like to go home. Appreciate production consultant input. vitals noted nad heent nc at mmm breathing unlabored no accessory muscles good effort labial/buttocks cellulitis w abscess --overall doing betterstable from a septic standpoint, and is improving overall from a surgical standpoint as well. Stable for homeLong course of Augmentin, close outpatient follow-up. Otherwise as above. Resident Activity Tracking Resident Involvement: Resident Care Provided Care Provided: Adult Hospital Medicine
--- NOTE | 2020-12-02 17:52 | Billing Data ---
Date of Service December 02, 2020 Coding Level of Care Code D/C Day Management <30 mins
== END 2020-12-02 17:53 | disposition home or self-care (01) | DRG 580 ==
LOC: ED 01:05 → SUATTDRO 03:35 → 2N 03:35

== ENCOUNTER 2022-06-19 19:19 | Inpatient (IN) ==
--- NOTE | 2022-06-19 19:39 | Obstetrical Progress Note ---
Date of Service June 19, 2022 Assessment & Plan (1) Unfavorable cervix in term : Plan: Shirlene is a 27-year-old presents for cervical ripening Castano placement. Thirty-nine weeks 0 days gestational age. Patient was verbally consented for the procedure after risks of the procedure reviewed. cervical ripening Castano placed without difficulty and tolerated well. A reactive NST was noted both before placement and following placement of Castano. patient discharged home in stable condition. discussed labor precautions. will plan for induction of labor tomorrow. Subjective Shirlene is a 27-year-old for cervical ripening Castano for planned induction of labor tomorrow. Patient was verbally consented for the procedure. We would assess risk of pain, rupture of membranes and intolerance. Physical Exam Genitourinary: Manual OB Exam: + cervical dilation 1 cm, + cervical effacement 50% and + station -2 Results & Data ([facility]) Vital Signs (Past 12 Hours) Vital Signs Pulse BP 06/19/22 19:30 90 134/60 PG Care Time/CCT Total # of Minutes Spent Total Time Spent with Patient: Total time spent is greater than 50% in coordination of care (as documented) at patient's floor/unit and/or counseling patient: Coding Diagnoses Unfavorable cervix in term O34.40
[2022-06-19] MEDS ORDERED: LIDOCAINE 1% LOCAL 20 ML VIAL INFIL PRN (19:48)
[2022-06-19] MEDS ORDERED: OXYTOCIN 30 UNITS/500 ML BAG IV PRN ×2 (19:48→20:04)
--- NOTE | 2022-06-19 19:56 | History & Physical Report ---
Date of Service June 19, 2022 Assessment & Plan (1) Encounter for supervision of normal in multigravida: Plan: Shirlene is a 27-year-old man at 39 weeks 0 days gestational age. Will admit for rupture of membranes. 1. Fetus: Cat 1 2. Labor: Pitocin 3. GBS Negative 4. Vitals: Normal (2) SROM (spontaneous rupture of membranes): (3) Echogenic bowel of fetus: History of Present Illness Primary Care Provider: Jason Colon PA-C Shirlene is a 27-year-old currently at 39 weeks 0 days gestational presented for cervical ripening fully resulting in rupture of membranes. discussed admission and starting induction of labor tonight. complication: Echogenic Bowel *MFM consult (03/20/22 @ [facility])--not seen with mfm - CMV test - Growth Q3w 28 week growth--efw 14%, echogenic bowel not seen, pericardial effusion seen (2.6mm). echo- wnl, no evidence of pericardial effusion - Deliver 39w, before EDC (IOL 06/20/22) Flu shot given 04/09/22 - [place] ? Pericardial Effusion on Growth - not seen on echo 04/20 * Echo @ [facility] 04/20/22 note states to do "pericardial effusion " checks (Per Dr. Glass, needs hydrops testing Q3-4wks) Allergies Allergy/AdvReac Type Severity Reaction Status Date / Time nickel AdvReac Mild Rash Verified 06/19/22 15:58 Home Medications Medication Instructions Recorded Confirmed Type prenat.vits,melany,[id number] 1 tab PO DAILY 11/10/21 06/19/22 History Patient History Medical History (Updated 06/19/22 @ 19:54 by Geovanni Rayo MD) Acute appendicitis Encounter for anatomic survey Evaluate anatomy not seen on prior sonogram Varicella vaccination Surgical History S/P appendectomy S/P surgical removal of pilonidal cyst S/P wisdom tooth extraction Status post incision and drainage L groin R buttock Family History Sister Qifvm-Xiwuatfvx-Rdyix syndrome Grandmother (Maternal) Breast cancer Grandmother (Paternal) Breast cancer Mother Non-Hodgkin lymphoma Mother Breast cancer Denies family history of Ovarian cancer Colorectal cancer Social History Smoking Status: Never smoker Second Hand Exposure: No; Hx Alcohol Use: No Hx Substance Use: No Preferred Language: Bulgarian Communication Ability: Effective Visual Impairment: No Limitations Verification Lead Required: No Beliefs That Will Affect Care: None marital status: Single marital status details: carolin Moses (24) [phone] Current Living Situation: Family and Significant Other Current Living Situation Comment: lives with fob, daughter, dogs current occupational status: 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[employer] Feels Safe at Home: Yes Safety Concerns: Feels Safe At This Time Assistive Devices: None Physical Exam Gastrointestinal (Abdomen): Inspection/Auscultation: abdomen not distended Percussion/Palpation: abdomen soft; abdomen nontender, no guarding and abdomen not rigid Genitourinary: Manual OB Exam: + cervical dilation 2 cm, + cervical effacement 70%, + station -2 and + amniotic fluid clear OB Exam Monitor Tracing: + external FHT monitor used, + external uterine monitor used, + category I and + normal FHT variability Results & Data ([facility]) Vital Signs (Past 12 Hours) Vital Signs Temp Pulse Resp BP 06/19/22 19:30 90 134/60 06/19/22 19:28 36.9 C 18 Coding Level of Care Code None Diagnoses Encounter for supervision of normal in multigravida Z34.80 SROM (spontaneous rupture of membranes) Echogenic bowel of fetus O35.8XX0 CPT Codes Misx Procedure Codes - 09386 Placement of cervical dilator: 78829 Placement of c ervical dilator ([id number])
[2022-06-19 20:33] LABS: Hematocrit (blood only) 33.9 % (34.1-44.9); Hemoglobin 11.8 g/dl (12.0-16.0); Mean Corpuscular Hemoglobin 33.1 pg (25.0-34.0); Mean Corpuscular Hgb Conc 34.8 g/dL (32.0-36.0); Mean Platelet Volume 11.3 fL (9.4-12.3); Platelet Count 160 K/uL (130-400); RDW Coefficient of Variation 12.6 % (11.5-14.5); RDW Standard Deviation 43.8 fL (36.4-46.3); Red Blood Count 3.57 M/uL (3.93-5.22); White Blood Count 11.35 K/ul (4.8-10.8)
[2022-06-19] MEDS: LACTATED RINGER'S 1,000 ML IV PRN (21:47)
[2022-06-20] MEDS ORDERED: CALCIUM CARBONATE 500 MG CHEWABLE TAB PO PRN (02:48)
[2022-06-20] MEDS ORDERED: ePHEDrine sulfate 50 MG/ML AMP IV PRN (04:25)
[2022-06-20] MEDS ORDERED: diphenhydrAMINE 50 MG/ML VIAL IV PRN (04:25)
[2022-06-20] MEDS ORDERED: fentaNYL 2MCG/ML ROPIVACAINE 1.25MG/ML 100 ML BAG EPI PRN (04:25)
[2022-06-20] MEDS ORDERED: NALBUPHINE HCL INJ 10 MG/ML AMP IV PRN (04:25)
[2022-06-20] MEDS ORDERED: NALOXONE HCL 0.4 MG/1 ML VIAL/CARP IV PRN (04:25)
[2022-06-20] MEDS ORDERED: ONDANSETRON INJ 2 MG/ML 2 ML VIAL IV PRN (04:25)
[2022-06-20] MEDS ORDERED: NALOXONE HCL 1 MG in SODIUM CHLORIDE 0.9% 1000ML 1,000 ML IV PRN (04:25)
[2022-06-20] MEDS: LACTATED RINGER'S 1,000 ML IV PRN ×2 (04:26→06:05)
[2022-06-20] MEDS ORDERED: SODIUM CHLORIDE 0.9% INJ 10 ML VIAL ONE (04:27)
[2022-06-20] MEDS ORDERED: fentaNYL citrate 100 MCG/2 ML VIAL ONE (04:27)
[2022-06-20] MEDS ORDERED: ePHEDrine sulfate 50 MG/ML AMP ONE (04:27)
[2022-06-20] MEDS ORDERED: LIDOCAINE 2%/EPINEPHRINE 1:200,000 20 ML SDV ONE (04:27)
[2022-06-20] MEDS ORDERED: BUPIVACAINE 0.25% 30 ML VIAL ONE (04:27)
[2022-06-20] MEDS ORDERED: fentaNYL 2MCG/ML ROPIVACAINE 1.25MG/ML 100 ML BAG EPI ONE (04:28)
--- NOTE | 2022-06-20 04:28 | Anesthesiology Consultation ---
Date of Service June 20, 2022 Assessment & Plan Chart Review Chart Review: Patient NOT seen in Pre Admission Testing and Acceptable Risk for Labor Epidural Consults Requested none ASA ASA2 Proposed Anesthesia Anesthesia Type: Labor Epidural and CSE Risk / Benefits Reviewed With: PT / POA / Parent / Guardian, Accepts Plan and Informed Consent Obtained History Height/Weight Height: 5 ft 1 in Weight: 89.358 kg Allergies Allergy/AdvReac Type Severity Reaction Status Date / Time nickel AdvReac Mild Rash Verified 06/19/22 15:58 Medications Home Medications Medication Instructions Recorded Confirmed Last Taken prenat.vits,melany,[id number] 1 tab PO DAILY 11/10/21 06/19/22 06/19/22 Active Medications Generic Name Dose Route Start Last Admin Trade Name Freq PRN Reason Stop Dose Admin Calcium Carbonate 1,000 mg 06/20/22 02:48 06/20/22 03:20 Calcium Carbonate 500 Mg Chewable Tab PO 07/20/22 02:47 1,000 mg Q4 PRN Administration Indigestion Lactated Ringer's 1,000 mls @ 125 mls/hr 06/19/22 19:48 06/20/22 04:26 Lr IV 06/21/22 19:47 999 mls/hr .Q8H PRN Administration L&D Protocol Protocol Oxytocin 30 units in 500 mls @ 6 mls/hr 06/19/22 20:04 06/20/22 00:00 Pitocin IV 06/21/22 20:03 0.36 units/hr .Q24H PRN 6 mls/hr Labor Induction/Augmentation Titration Protocol 0.36 UNITS/HR NPO Date Last Intake of Fluids: 06/20/22 Time Last Intake of Fluids: 03:30 Date Last Intake of Solids: 06/19/22 Time Last Intake of Solids: 17:00 Past Medical History Medical History Acute appendicitis Encounter for anatomic survey Evaluate anatomy not seen on prior sonogram Varicella vaccination Exercise / Class Metabolic Activity II 4-5 Yardwork/Stairs/Walk up hill Past Family History Family History Sister Grrbs-Smogtdulp-Ygfhv syndrome Grandmother (Maternal) Breast cancer Grandmother (Paternal) Breast cancer Mother Non-Hodgkin lymphoma Mother Breast cancer Denies family history of Ovarian cancer Colorectal cancer Past Surgical History Surgical History S/P appendectomy S/P surgical removal of pilonidal cyst S/P wisdom tooth extraction Status post incision and drainage L groin R buttock Past Anesthesia History No Hx of Anesthesia Complications and No Family Hx of Anesthesia Complications History of PONV No Hx of PONV and No Hx of Motion Sickness Social History Smoking Status: Never smoker Hx Alcohol Use: No Alcohol type: beer alcohol intake frequency: holidays/special occasions only Hx Substance Use: No substance use type: does not use Review of Systems no chest pain or sob Physical Exam Vital Signs Last Vital Signs Temp 37.4 C 06/20/22 00:00 Pulse 90 06/19/22 19:30 Resp 18 06/19/22 19:28 BP 134/60 06/19/22 19:30 ENMT Mouth: no TMJ abnormality Thyromental Distance: > or= 3.5 Finger Breadths Mallampati Class: II Neck normal visual inspection Respiratory normal respiratory effort Auscultation: lungs clear to auscultation bilaterally Cardiovascular Rate/Rhythm: regular rate and regular rhythm Musculoskeletal Spine: normal cervical ROM Neurologic moves all extremities Psychiatric Orientation: alert and oriented x 3 Testing Laboratory Results 06/19/22 20:21 Blood Type B Positive 06/19/22 20:21 Antibody Screen NEGATIVE 06/19/22 20:21
--- NOTE | 2022-06-20 07:57 | Labor Progress Brief Note ---
Date of Service June 20, 2022 Subjective Reason For Note: Routine Evaluation Assessment & Plan (1) Encounter for supervision of normal in multigravida: Plan: Shirlene is a 27-year-old man at 39 weeks 0 days gestational age. Will admit for rupture of membranes. 1. Fetus: Cat 1 2. Labor: Progressing well 3. GBS Negative 4. Vitals: Normal (2) SROM (spontaneous rupture of membranes): (3) Echogenic bowel of fetus: Admission and Anticipated Discharge Date Admission Date: June 19, 2022 Physical Exam Genitourinary: Manual OB Exam: + cervical dilation 6 cm, + cervical effacement 90%, + station -1 and + amniotic fluid clear OB Exam Monitor Tracing: + external FHT monitor used, + external uterine monitor used, + category I and + normal FHT variability Results & Data ([facility]) Vital Signs (Past 12 Hours) Vital Signs Temp Pulse Resp BP Pulse Ox 06/20/22 07:48 85 96 06/20/22 07:43 90 97 06/20/22 07:39 91 H 127/50 L 06/20/22 07:38 107 H 100 06/20/22 07:33 86 98 06/20/22 07:28 95 H 98 06/20/22 07:23 81 100/49 L 96 06/20/22 07:18 85 97 06/20/22 07:13 90 96 06/20/22 07:10 99 H 114/52 L 06/20/22 07:08 93 H 98 06/20/22 07:03 81 98 06/20/22 06:58 85 96 06/20/22 06:53 88 107/53 L 97 06/20/22 06:48 89 97 06/20/22 06:43 91 H 95 06/20/22 06:38 88 97 06/20/22 06:39 86 116/55 L 06/20/22 06:30 18 06/20/22 06:30 18 06/20/22 06:33 86 97 06/20/22 06:28 84 96 06/20/22 06:00 18 06/20/22 06:00 37.0 C 18 06/20/22 06:23 92 H 118/56 L 96 06/20/22 06:18 113 H 97 06/20/22 06:13 103 H 99 06/20/22 06:08 97 06/20/22 06:08 90 06/20/22 06:08 90 140/62 06/20/22 06:03 98 H 97 06/20/22 05:58 94 H 97 06/20/22 05:53 86 131/59 L 97 06/20/22 05:48 87 96 06/20/22 05:43 85 96 06/20/22 05:30 18 06/20/22 05:30 18 06/20/22 05:15 18 06/20/22 05:15 18 06/20/22 05:00 18 06/20/22 05:00 18 06/20/22 05:38 96 06/20/22 05:38 83 06/20/22 05:38 86 136/61 06/20/22 05:33 86 96 06/20/22 05:28 84 97 06/20/22 05:23 93 H 132/61 98 06/20/22 05:18 86 96 06/20/22 05:13 87 96 06/20/22 05:08 88 97 06/20/22 05:09 88 121/56 L 06/20/22 02:00 37.1 C 06/20/22 04:45 18 06/20/22 04:45 37.1 C 18 06/20/22 05:03 88 96 06/20/22 04:58 92 H 98 06/20/22 04:53 88 100 06/20/22 04:52 88 125/61 06/20/22 04:50 85 122/60 06/20/22 04:48 92 H 133/69 99 06/20/22 04:46 82 126/58 L 06/20/22 04:44 88 122/58 L 06/20/22 04:43 99 H 98 06/20/22 04:38 93 H 95 06/20/22 04:33 100 06/20/22 04:33 88 06/20/22 04:33 113 H 124/73 06/20/22 04:28 95 H 98 06/20/22 00:00 37.4 C 06/19/22 21:50 36.8 C Coding Level of Care Code None Diagnoses Encounter for supervision of normal in multigravida Z34.80 SROM (spontaneous rupture of membranes) Echogenic bowel of fetus O35.8XX0
--- NOTE | 2022-06-20 09:28 | Delivery Summary ---
Vaginal Delivery Summary Date of Service June 20, 2022 Vaginal Delivery Summary [facility] Pre-operative Diagnosis: at 39 weeks unfavorable cervix Post-operative Diagnosis: same Procedure: pinto bulb with srom pitocin induction epidural EBL: 200cc Anesthesia: epidural Procedure: Patient presented for pinto bulb for planned induction of labor at 39 weeks for issues. She had pinto bulb placed and then srom. Underwent pitocin induction. Got epidural and progressed to c/c/+2. The patient pushed for 2 contractions to deliver a viable female in ifrah position. The nose and mouth were bulb suctioned on the perineum and the rest of the was then delivered without difficulty. The baby was vigorous. The nose and mouth were again bulb suctioned and the infant was placed in the maternal abdomen for drying and attention. Cord was clamped and cut at one minute of life. Cord blood and segment obtained. Placenta delivered spontaneous, intact with a three vessel cord. Cervix/sulci/rectum/perineum were intact. Hemostasis obtained with dilute pitocin and fundal massage. Apgars were 8/9. Mother and baby doing well at the end of the delivery[place] [facility] Delivery Type Details: [facility]
[2022-06-20] MEDS ORDERED: BENZOCAINE 20% AER SPR 82.5 GM CAN EXT PRN (09:33)
[2022-06-20] MEDS ORDERED: DIPHTHERIA/TETANUS/PERTUSSIS 0.5 ML SYR/VIAL IM ONE (09:33)
[2022-06-20] MEDS ORDERED: oxyCODONE/ACETAMINOPHEN 5mg/325mg TAB PO PRN (09:33)
[2022-06-20] MEDS ORDERED: ACETAMINOPHEN 325 MG TAB PO PRN (09:33)
[2022-06-20] MEDS ORDERED: HYDROCORTISONE ACETATE 25 MG SUPP PR PRN (09:33)
[2022-06-20] MEDS ORDERED: bisacodyL 10 MG SUPP PR PRN (09:33)
[2022-06-20] MEDS ORDERED: OXYTOCIN 30 UNITS/500 ML BAG IV PRN (09:33)
[2022-06-20] MEDS: IBUPROFEN 600 MG TAB PO PRN ×4 (12:05→21:41)
--- NOTE | 2022-06-20 15:00 | Anesthesia Procedure Note ---
Date of Service June 20, 2022 Anesthesia Post Epidural Note Vital Signs Vital Signs: Temp Pulse Resp BP Pulse Ox O2 Del Method 37.4 C 94 H 16 113/71 98 06/20/22 13:45 06/20/22 13:45 06/20/22 13:45 06/20/22 13:45 06/20/22 13:45 06/20/22 13:45 Pain Intensity Abdomen: Pain Intensity: 5 Notes Mental Status: alert / awake / arousable Nausea / Vomiting: adequately controlled Pain: adequately controlled Airway Patency, RR, SpO2: stable & adequate BP & HR: stable & adequate Hydration State: stable & adequate Neuraxial Anesthesia: was administered and sensory block is resolving Anesthetic Complications: no major complications apparent and Pt Satisfied with anesthetic care Epidural: Removed without complications and With tip intact
[2022-06-20] MEDS ORDERED: DOCUSATE SODIUM 100 MG CAP PO SCH (21:00)
[2022-06-21 07:28] LABS: Hematocrit (blood only) 34.6 % (34.1-44.9); Hemoglobin 11.9 g/dl (12.0-16.0)
--- NOTE | 2022-06-21 07:48 | Obstetrical Progress Note ---
Date of Service <Armando Hopkins - Last Filed: 06/21/22 07:48> June 21, 2022 Assessment & Plan <Armando Hopkins - Last Filed: 06/21/22 07:48> (1) Status post vaginal delivery: - Feels well today. Eating well, voiding well, ambulating well. - Pain well controlled with ibuprofen 600mg Q4H PRN - Routine care -- OOB, ambulation, diet progression as tolerated - After discharge will have 6 week follow-up with Dr. Anthony. - Patient would like to be D/C'ed today if everything is okay with the baby. <Kenyetta Anthony MD, FACOG - Last Filed: 06/21/22 08:02> (1) Status post vaginal delivery: Subjective <Armando Hopkins - Last Filed: 06/21/22 07:48> Patient is a 27 y/o female who is now PPD # 1 following spontaneous vaginal delivery at 39 weeks. Reports feeling well overall this morning. Mild abdominal cramping & 2/10 pain well managed on analgesics. Voiding well. Tolerating meals overnight and able to ambulate some. Able to pass gas. Has some persistent lochia with some improvement this morning. Currently pumping and transferring to a bottle for feeding. Review of Systems Denies fever, chills, sweats Denies shortness of breath, difficulty breathing, chest pain, palpitations, chest pressure. Denies breast pain. Denies dysuria. Denies headache or changes in vision. Physical Exam <Armando Hopkins - Last Filed: 06/21/22 07:48> General: Alert, oriented. No acute distress. Cardiac: Regular rate and rhythm, no murmurs/rubs/gallops. Respiratory: Clear to auscultation bilaterally a/p, no wheezes/rales/rhonchi. No increased work of breathing. Symmetrical chest rise. No respiratory distress. Abdomen: Soft, nontender, nondistended. Bowel sounds present. Uterus: Uterine fundus firm, palpable 2 cm below umbilicus. Lower Extremities: No lower extremity edema or swelling. No deep calf pain. Kyle's negative bilaterally. Results & Data ([facility]) <Armando GarciaYaw Hopkins DO - Last Filed: 06/21/22 07:48> Vital Signs (Past 12 Hours) Vital Signs Temp Pulse Resp BP Pulse Ox O2 Del Method 06/21/22 04:00 36.6 C 65 18 131/74 Room Air 06/21/22 00:30 Room Air 06/21/22 00:30 36.7 C 85 18 117/71 Room Air 06/20/22 22:38 36.7 C 76 18 110/68 94 Room Air 06/20/22 20:11 36.7 C 82 16 106/58 L 98 Room Air <Kenyetta Anthony MD, FACOG - Last Filed: 06/21/22 08:02> Co-Signing Physician Notes Resident Physician Supervision Note: I interviewed and examined the patient. Discussed with Dr. Hopkins and agree with findings and plan as documented in the note. Any exceptions or clarifications are listed here: Doing well. Would like d/c today. Instructioins given. Documented By: Kenyetta Anthony MD, FACOG Resident Activity Tracking <Armando Hopkins DO - Last Filed: 06/21/22 07:48> Resident Involvement: Resident Care Provided Care Provided: OB Delivery
[2022-06-21] MEDS ORDERED: PRENATAL VITAMIN 1 TAB PO SCH (08:00)
[2022-06-21] MEDS ORDERED: bisacodyL 5 MG TABEC PO SCH (20:00)
== END 2022-06-21 13:38 | disposition home or self-care (01) | DRG 807 ==
LOC: OPB 19:19 → 4S1 19:21 → 4E2 06-20 14:02